=== PATIENT | male | born 1960 | race Caucasian/White ===

== ENCOUNTER 2018-03-03 08:49 | Emergency (ER) | payer OTHER ==
[2018-03-03 09:05] VITALS: BP 127/82
--- NOTE | 2018-03-03 09:50 | RAD ---
INDICATION: Right shoulder pain COMPARISON: None TECHNIQUE: Routine frontal, Y and axial views were obtained. FINDINGS: The bony structures, joint spaces, and soft tissues are normal for age. Incidental note is made of a cardiac pacemaker. IMPRESSION: NEGATIVE EXAMINATION
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
== END 2018-03-03 10:04 | disposition home or self-care (01) ==
LOC: UCCORT 08:49
DX: M25.511 Pain in right shoulder (principal); S49.91XA Unspecified injury of right shoulder and upper arm, initial encounter; X58.XXXA Exposure to other specified factors, initial encounter; Y93.89 Activity, other specified; Y92.9 Unspecified place or not applicable; F17.210 Nicotine dependence, cigarettes, uncomplicated
CPT/HCPCS: 99213; G0463

== ENCOUNTER 2018-05-18 15:11 | Emergency (ER) | payer OTHER ==
--- OUTSIDE RECORDS SUMMARY | 2018-05-18 15:26 | XMS REPORT ---
:1960 External Reference #:[id number] Author Organization [facility] Address [address], [address] [place] [address] Phone [phone] Care Team Providers Name Role Phone Champ Alexander M.D. 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 Primary Care Physician Unavailable Payers Type Date Identification Numbers Payment Provider Subscriber Commercial Policy Number: [id number] [employer] Maycol Moran PayID: [id number] [address] [place] [address] Problems Date Description Provider Status Onset: 02/04/2013 Aortic valve disorder Ladarius Guzman M.D., Active FACC Onset: 02/04/2013 Mitral valve disorder Ladarius Guzman M.D., Active FACC Onset: 02/04/2013 Primary cardiomyopathy Ladarius Guzman M.D., Active FACC Onset: 02/04/2013 Tobacco user Ladarius Guzman M.D., Active FACC Onset: 07/09/2013 Hyperlipidemia Neena Almazan, Active MSN, MANAGER ENGAGEMENT Onset: 07/09/2013 Benign essential hypertension Neena Almazan, Active MSN, MANAGER ENGAGEMENT Onset: 07/23/2013 Left bundle branch block Neena Almazan, Active MSN, MANAGER ENGAGEMENT Onset: 07/23/2013 Coronary arteriosclerosis Neena Almazan, Active MSN, MANAGER ENGAGEMENT Onset: 08/14/2013 Tachycardia Ladarius Guzman M.D., Active FACC Onset: 09/23/2013 Automatic implantable cardiac Maranda ReidD., Active defibrillator in situ FACC Onset: 09/23/2013 Dizziness and giddiness Ladarius Guzman M.D., Active FACC Onset: 02/23/2014 Syncope and collapse Ladarius Guzman M.D., Active FACC Onset: 02/23/2014 Paroxysmal ventricular tachycardia Ladarius Guzman M.D. , Active FACC Onset: 04/07/2014 Postoperative Wound Closure Ladarius Guzman M.D., Active Encounter FACC Onset: 01/15/2017 Lesion of ulnar nerve ADA Ponec Active Onset: 01/31/2017 Arthralgia of the upper arm ADA Ponce Active Onset: 01/08/2018 Conjunctival hemorrhage Basil Chandler MD Active Onset: 01/08/2018 Macula scars of posterior pole Basil Chandler MD Active (post-traumatic), right eye Onset: 01/08/2018 Corneal opacity Basil Chandler MD Active Family History Date Family Member(s) Problem(s) Comments General Heart Disease : (age 45 Years) Father due to [place] : (age 41 Years) Mother due to Unknown Causes First Brother Alive First Brother 45 First Sister Alive First Sister 41 Social History Type Date Description Comments Lives With Roommate Verónica Phelan Patient follows no dietary restrictions 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 ADL's/IADL's Independent with all ADL's Cigarette Use Current Cigarette Smoker 1 Pack Daily Cigarette Use Pack Years - 30 ETOH Use Currently consumes alcohol socially Smoking Heavy tobacco smoker (more than smokes 1 ppd x 30+ years 10 cigarettes/day) Recreational Drug Use Former Drug User Daily Caffeine Consumes on average 1 pot of regular coffee per day Allergies, Adverse Reactions, Alerts Date Description Reaction Status Severity Comments 05/01/2018 NKDA active Green Vegetables active Medications Medication Date Status Form Strength Qnty SIG Indications Ordering Provider Simvastatin 07/09 Active Tablets 20mg 30tab take 1 tablet 272.4 Neena /2012 s by mouth Simon[place] every evening Tha, MSN, MANAGER ENGAGEMENT Meloxicam Active Tablets 15mg 30tab 1 by mouth Unknown /0000 s every day Metoprolol Active Tablets 50mg 30tab 1 by mouth Unknown Succinate ER /0000 ER 24HR s every day Terbinafine HCL Active Tablets 250mg 90tab 2 by mouth Unknown /0000 s twice a day Warfarin Sodium Active Tablets 10mg take one Unknown tablet by mouth as directed Spironolactone Active Tablets 25mg 1 by mouth Unknown /0000 every day Clopidogrel Active Tablets 75mg 1 by mouth Unknown Bisulfate /0000 every day Oxycodone HCL Active Tablets 15mg take 1 tablet Unknown every 4 hours if needed Lovenox 07/23 Hx Solution 80mg/0.8M 12uni 1 425.4 Neena L ts subcutaneous Simonetta every 12 Tha, colby MSN, MANAGER ENGAGEMENT starting three days prior to the procedure (no Coumadin for 5 days prior to the procedure) Clopidogrel 07/09 Hx Tablets 75mg 30tab 1 po qd 786.50 Neena s Louis Almazan, MSN, MANAGER ENGAGEMENT Aldactone 02/04 Hx Tablets 25mg 90tab 1 po qd Ladarius Low /Grazyna Anderson M.D., [facility] 01/15 Hydrocodone/Juan Alberto Hx Tablets 10-325mg 1-2 tabs Unknown taminophen / q4-6h prn Triamcinolone Hx Cream 0.1% prn itching Unknown Acetonide / Coumadin Hx Tablets 10mg 60tab as directed / s by PCP - 01/15 Aspirin Ec Hx Tablets 81mg 1 po qd Unknown Lisinopril Hx Tablets 10mg 90tab 1 po qd Unknown / s Oxycodone HCL Hx Tablets 10mg 1 by mouth Unknown / every 4-6 - hour as 01/15 needed pain /2017 Alprazolam Hx Tablets 0.5mg 1 by mouth Unknown three times a - day as needed 01/15 Vital Signs Date Vital Result Comment 05/01/2018 BP Systolic Sitting Left Arm 124 mmHg BP Diastolic Sitting Left Arm 80 mmHg Body Temperature 98.6 F Heart Rate 78 /min Respiratory Rate 16 /min Height 68 inches 5'8" Weight 161.00 lb BMI (Body Mass Index) 24.5 kg/m2 BSA (Body Surface Area) 1.86 m2 [place] body weight in kilograms 70 O2 % BldC Oximetry 99 % 04/23/2017 BP Systolic Sitting Left Arm 118 mmHg BP Diastolic Sitting Left Arm 70 mmHg Heart Rate 72 /min Respiratory Rate 18 /min Height 68 inches 5'8" Weight 175.00 lb BMI (Body Mass Index) 26.6 kg/m2 BSA (Body Surface Area) 1.93 m2 [place] body weight in kilograms 70 01/15/2017 BP Systolic Sitting Right Arm 138 mmHg BP Diastolic Sitting Right Arm 88 mmHg Heart Rate 77 /min Height 68 inches 5'8" Weight 176.00 lb BMI (Body Mass Index) 26.8 kg/m2 BSA (Body Surface Area) 1.94 m2 [place] body weight in kilograms 70 10/23/2016 BP Systolic Sitting Right Arm 114 mmHg BP Diastolic Sitting Right Arm 80 mmHg Heart Rate 73 /min Respiratory Rate 16 /min Height 70 inches 5'10" Weight 181.00 lb BMI (Body Mass Index) 26.0 kg/m2 BSA (Body Surface Area) 2.00 m2 07/14/2014 BP Systolic Sitting Left Arm 122 mmHg BP Diastolic Sitting Left Arm 76 mmHg Heart Rate 88 /min Respiratory Rate 16 /min Height 70 inches 5'10" 04/07/2014 BP Systolic Sitting Right Arm 124 mmHg BP Diastolic Sitting Right Arm 62 mmHg Heart Rate 84 /min Respiratory Rate 16 /min Height 70 inches 5'10" Weight 164.00 lb BMI (Body Mass Index) 23.5 kg/m2 BSA (Body Surface Area) 1.92 m2 02/23/2014 BP Systolic Sitting Right Arm 142 mmHg BP Diastolic Sitting Right Arm 86 mmHg Heart Rate 82 /min Respiratory Rate 16 /min Height 70 inches 5'10" Weight 169.00 lb BMI (Body Mass Index) 24.2 kg/m2 BSA (Body Surface Area) 1.94 m2 01/13/2014 BP Systolic Sitting Right Arm 144 mmHg BP Diastolic Sitting Right Arm 98 mmHg Heart Rate 84 /min Respiratory Rate 16 /min Height 70 inches 5'10" Weight 182.00 lb BMI (Body Mass Index) 26.1 kg/m2 BSA (Body Surface Area) 2.01 m2 10/15/2013 BP Systolic Sitting Left Arm 108 mmHg BP Diastolic Sitting Left Arm 58 mmHg Heart Rate 62 /min Respiratory Rate 16 /min Height 70 inches 5'10" Weight 184.00 lb BMI (Body Mass Index) 26.4 kg/m2 BSA (Body Surface Area) 2.01 m2 09/23/2013 BP Systolic Sitting Right Arm 104 mmHg BP Diastolic Sitting Right Arm 74 mmHg Heart Rate 76 /min Respiratory Rate 16 /min Height 70 inches 5'10" Weight 187.00 lb BMI (Body Mass Index) 26.8 kg/m2 BSA (Body Surface Area) 2.03 m2 08/14/2013 BP Systolic Sitting Right Arm 120 mmHg BP Diastolic Sitting Right Arm 78 mmHg Heart Rate 76 /min Respiratory Rate 16 /min Height 70 inches 5'10" Weight 190.00 lb BMI (Body Mass Index) 27.3 kg/m2 BSA (Body Surface Area) 2.04 m2 07/23/2013 BP Systolic Sitting Right Arm 92 mmHg BP Diastolic Sitting Right Arm 60 mmHg Heart Rate 68 /min Respiratory Rate 16 /min Height 70 inches 5'10" Weight 189.00 lb BMI (Body Mass Index) 27.1 kg/m2 BSA (Body Surface Area) 2.04 m2 07/09/2013 BP Systolic Sitting Right Arm 120 mmHg BP Diastolic Sitting Right Arm 82 mmHg Heart Rate 86 /min Respiratory Rate 16 /min Height 70 inches 5'10" Weight 189.00 lb BMI (Body Mass Index) 27.1 kg/m2 BSA (Body Surface Area) 2.04 m2 02/04/2013 BP Systolic Sitting Right Arm 130 mmHg BP Diastolic Sitting Right Arm 86 mmHg Heart Rate 90 /min Respiratory Rate 16 /min Height 70 inches 5'10" Weight 178.00 lb BMI (Body Mass Index) 25.5 kg/m2 BSA (Body Surface Area) 1.99 m2 Results Test Date Test Result H/L Range Note MCHC RBC Auto-mCnc 09/22/2016 MCHC RBC Auto-mCnc 34.6 31.7-36.0 MCV RBC Auto 09/22/2016 MCV RBC Auto 100.7 High 80.0-96.0 Monocytes # Bld Auto 09/22/2016 Monocytes # Bld Auto 1.00 High 0.0-0.8 Monocytes/leuk NFr 09/22/2016 Monocytes/leuk NFr 12.1 High 0.0-10.0 Bld Auto Bld Auto Neutrophils # Bld 09/22/2016 Neutrophils # Bld 4.25 1.8-7.0 Auto Auto Neutrophils/leuk NFr 09/22/2016 Neutrophils/leuk NFr 51.3 33.0-73.0 Bld Auto Bld Auto PMV Bld Auto 09/22/2016 PMV Bld Auto 10.8 High 6.6-10.6 Platelet # Bld Auto 09/22/2016 Platelet # Bld Auto 173 150-400 Potassium SerPl-sCnc 09/22/2016 Potassium SerPl-sCnc 3.8 3.5-5.1 Prot SerPl-mCnc 09/22/2016 Prot SerPl-mCnc 8.3 High 6.4-8.2 Prothrombin time 09/22/2016 Prothrombin time 35.7 High 12.0-14.4 RBC # Bld Auto 09/22/2016 RBC # Bld Auto 4.10 Low 4.20-5.80 RDW RBC Auto 09/22/2016 RDW RBC Auto 49.6 36-51 RDW RBC Auto-Rto 09/22/2016 RDW RBC Auto-Rto 13.8 11.6-15.8 Sodium SerPl-sCnc 09/22/2016 Sodium SerPl-sCnc 142 136-145 Troponin I SerPl-mCnc 09/22/2016 Troponin I 0.024 SerPl-mCnc WBC # Bld Auto 09/22/2016 WBC # Bld Auto 8.3 3.4-10.5 Ast SerPl-cCnc 09/22/2016 Ast SerPl-cCnc 100 High 15-37 Activated partial 09/22/2016 Activated partial 46.7 High 23.4-35.0 thromboplastin time thromboplastin time (aPTT) in pl (aPTT) in platelet poor plasma by coagulation assay Albumin SerPl-mCnc 09/22/2016 Albumin SerPl-mCnc 4.4 3.4-5.0 Albumin/Glob SerPl 09/22/2016 Albumin/Glob SerPl 1.1 Anion Gap SerPl-sCnc 09/22/2016 Anion Gap SerPl-sCnc 11 8-16 Alt SerPl-cCnc 09/22/2016 Alt SerPl-cCnc 80 High 12-78 Alp SerPl-cCnc 09/22/2016 Alp SerPl-cCnc 48 45-117 BUN SerPl-mCnc 09/22/2016 BUN SerPl-mCnc 8 7-18 BUN/Creat SerPl 09/22/2016 BUN/Creat SerPl 10.0 Basophils # Bld Auto 09/22/2016 Basophils # Bld Auto 0.05 Low 0.1-0.2 Basophils/leuk NFr 09/22/2016 Basophils/leuk NFr 0.6 0.1-1.0 Bld Auto Bld Auto Bilirub SerPl-mCnc 09/22/2016 Bilirub SerPl-mCnc 0.4 0.2-1.0 Co2 SerPl-sCnc 09/22/2016 Co2 SerPl-sCnc 25 21-32 MCH RBC Qn Auto 09/22/2016 MCH RBC Qn Auto 34.9 High 27.0-33.0 Lymphocytes/leuk NFr 09/22/2016 Lymphocytes/leuk NFr 27.6 17.0-56.0 Bld Auto Bld Auto Lymphocytes # Bld 09/22/2016 Lymphocytes # Bld 2.29 1.8-7.0 Auto Auto Inr 09/22/2016 Inr 3.7 High 0.9-1.1 Hgb Bld-mCnc 09/22/2016 Hgb Bld-mCnc 14.3 12.8-17.0 Hct VFr Bld Auto 09/22/2016 Hct VFr Bld Auto 41.3 38.0-48.0 Glucose [mass/volume] 09/22/2016 Glucose 84 74-106 in serum or plasma [mass/volume] in serum or plasma Globulin Ser 09/22/2016 Globulin Ser 3.9 1.9-4.3 Calc-mCnc Calc-mCnc Eosinophil/leuk NFr 09/22/2016 Eosinophil/leuk NFr 8.4 High 0.0-5.0 Bld Auto Bld Auto Eosinophil # Bld Auto 09/22/2016 Eosinophil # Bld 0.70 High 0.0-0.5 Auto Creat SerPl-mCnc 09/22/2016 Creat SerPl-mCnc 0.8 0.6-1.3 Chloride SerPl-sCnc 09/22/2016 Chloride SerPl-sCnc 106 98-107 Calcium SerPl-mCnc 09/22/2016 Calcium SerPl-mCnc 8.9 8.5-10.1 Protime 03/16/2014 Protime 20.9 seconds High 12.1-14.9 Inr 1.8 High 0.9-1.1 1 CBC W/Automated Diff 09/29/2013 White Blood Count 7.1 K/uL 3.4-10.5 Red Blood Count 4.11 M/uL Low 4.20-5.80 Hemoglobin 14.3 gm/dL 12.8-17.0 Hematocrit 40.8 % 38.0-48.0 Mean Cell Volume 99.3 fl High 80.0-96.0 Mean Corpuscular HGB 34.8 pg High 27.0-33.0 Mean Corpuscular HGB Conc 35.0 g/dL 31.7-36.0 Platelet Count 225 K/uL 150-400 Red Cell Distri Width SD 47.7 fl 36-51 Red Cell Distri Width %CV 13.4 % 11.6-15.8 Mean Platelet Volume 10.1 fL 6.6-10.6 Neut% 55.3 % 33.0-73.0 Lymph % 21.5 % 17.0-56.0 [place] % 12.5 % High 0.0-10.0 Eo% 9.4 % High 0.0-5.0 Bas% 1.3 % High 0.1-1.0 Neut# 3.92 K/uL 1.8-7.0 Lymph # 1.53 K/uL 1.2-4.0 [place] # 0.89 K/uL High 0.0-0.6 Eos # 0.67 K/uL High 0.0-0.5 Baso # 0.09 K/uL Low 0.1-0.2 Basic Metabolic Panel 09/29/2013 Glucose 92 mg/dL 76-115 BUN 9 mg/dL 5-23 Creatinine 0.9 mg/dL 0.5-1.4 Glom Filtration Rate, Estimate >60 mL/min >60 If >60 mL/min >60 2 BUN/Creat 10.0 ratio Sodium 137 mmol/L 136-145 Potassium 4.2 mmol/L 3.5-5.1 Chloride 106 mmol/L 98-107 Carbon Dioxide 26 mEq/L 18-29 Anion Gap 9 mEq/L 8-16 Calcium 9.3 mg/dL 8.5-10.1 1 THERAPEUTIC INR RANGE: 2.0 - 3.0 DVT, Pulmonary embolus, prophylaxis against venous thrombosis or systemic embolization in high risk patients. 2.5 - 3.5 Mechanical heart valves 2 Note: Persistent reduction for 3 months or more in an eGFR <60 mL/min/1.73 m2 defines CKD. Patients with eGFR values >/=60 mL/min/1.73 m2 may also have CKD if evidence of persistent proteinuria is present. The original MDRD equation for estimated GFR is not valid for patients less than 18 years of age. Additional information may be found at www.kdoqi.org. Procedures Date CPT Code Description Status 05/01/2018 72440 Radiology, Ankle Complete Completed 01/08/2018 44658 Eye Exam New Patient Comprehensive Completed 12/28/2017 38857 Stress Test Interpre And Report Only Completed 12/28/2017 06036 Stress Test Physician Super Only Completed 12/28/2017 84489 Myocardial Imaging Tomographic Multiple Study AT Rest Completed Or Stress 04/16/2017 13582 Echocardiogram Complete Completed 10/23/2016 19201 EKG-Tracing And Report Completed 10/10/2016 99107 Cardioversion/Defibrillation Dual Pacemaker Completed 10/10/2016 76584 Cardioversion/Defibrillation Dual Pacemaker Completed 07/14/2014 41816 Cardioversion/Defibrillation Dual Pacemaker Completed 07/14/2014 07629 Cardioversion/Defibrillation Dual Pacemaker Completed 04/07/2014 43087 Cardioversion/Defibrillation Dual Pacemaker Completed 04/07/2014 02734 Cardioversion/Defibrillation Dual Pacemaker Completed 04/07/2014 96583 EKG-Tracing And Report Completed 03/16/2014 15150 Cardioversion/Defibrillation Dual Pacemaker Completed 01/16/2014 42587 Event Monitor Inter/Review Only Completed 09/23/2013 88023 Cardioversion/Defibril. Multiple Lead Pacemaker Completed 09/23/2013 93197 Cardioversion/Defibril. Multiple Lead Pacemaker Completed 09/23/2013 49231 EKG-Tracing And Report Completed 07/09/2013 55297 Event Monitor Inter/Review Only Completed 07/09/2013 83307 EKG-Tracing And Report Completed 02/20/2013 33469 Echocardiogram Complete Completed 02/04/2013 05407 EKG-Tracing And Report Completed 01/28/2013 89130 Stress Test Interpre And Report Only Completed 01/28/2013 78353 Stress Test Physician Super Only Completed 01/28/2013 14128 Stress Test Physician Super Only Completed 01/28/2013 22278 Myocardial Imaging Tomographic Multiple Study AT Rest Completed Or Stress 07/08/2010 23306 Echocardiogram Complete Completed Encounters Type Date Location Provider CPT E/M Dx Office Visit 04/23/2017 8:00a Cardiology Office Ladarius Guzman, 76745 I35.0 M.D., FACC I34.0 I47.2 I44.7 Z95.810 I42.9 Office Visit 01/31/2017 3:30p Orthopaedic Office ADA Ponce 12620 G56.22 M25.522 Office Visit 01/15/2017 11:00a Orthopaedic Office ADA Ponce 29585 M25.522 G56.22 Office Visit 10/23/2016 3:20p Cardiology Office Neena Almazan, 95587 I42.9 MSN, MANAGER ENGAGEMENT I35.0 I34.0 I47.2 Z95.810 Office Visit 07/14/2014 11:40a Cardiology Office Ladarius Guzman, 04388 V45.02 M.D., FACC 780.2 424.1 424.0 Office Visit 04/17/2014 1:45p Cardiology Office Neena Almazan, 63878 V58.41 MSN, MANAGER ENGAGEMENT Office Visit 04/07/2014 10:10a Cardiology Office Ladarius Guzman, 68223 V45.02 M.D., FACC V58.41 780.2 424.1 424.0 Office Visit 03/23/2014 9:30a Cardiology Office Neena Almazan, 91716 V58.41 MSN, MANAGER ENGAGEMENT Office Visit 03/09/2014 1:30p Cardiology Office Neena Almazan, 25564 V58.41 MSN, MANAGER ENGAGEMENT Office Visit 02/23/2014 2:00p Cardiology Office Ladarius Guzman, 73711 780.2 M.D., FACC 427.1 426.3 425.4 Office Visit 01/13/2014 9:00a Cardiology Office Neena Almazan, 90902 780.2 MSN, MANAGER ENGAGEMENT 427.1 425.4 426.3 424.1 424.0 414.01 272.4 Office Visit 10/27/2013 3:00p Cardiology Office JULIET Masters 69783 V58.41 Office Visit 10/15/2013 2:20p Cardiology Office Ladarius Guzman, 34464 425.4 M.D., FACC 426.3 V45.02 785.0 780.4 424.1 Office Visit 09/23/2013 10:10a Cardiology Office Ladarius ClaireNataliya Guzman, 55976 425.4 M.D., FACC V45.02 426.3 785.0 780.4 Office Visit 09/09/2013 1:20p Cardiology Office Neena Diggswinter Almazan, 95387 V58.41 MSN, MANAGER ENGAGEMENT Office Visit 08/14/2013 1:30p Cardiology Office Ladarius ClaireNataliya Guzman, 42541 785.0 M.D., FACC 425.4 426.3 Office Visit 07/23/2013 2:50p Cardiology Office Neena Diggswinter Almazan, 17970 780.2 MSN, MANAGER ENGAGEMENT 425.4 414.01 424.0 424.1 272.4 401.1 426.3 305.1 Office Visit 07/09/2013 9:40a Cardiology Office Neena Diggswinter Almazan, 80698 786.50 MSN, MANAGER ENGAGEMENT 780.2 425.4 424.0 424.1 305.1 272.4 401.1 426.3 Office Visit 02/04/2013 2:00p Cardiology Office Ladariusmarley Guzman, 39084 424.1 M.D., FACC 424.0 425.4 305.1 Plan of Care 05/01/2018 - Kahlil Roberts, MDM19.172 Post-traumatic osteoarthritis, left ankle and footFollow up:Patient will follow-up if his symptoms change as needed.
--- OUTSIDE RECORDS SUMMARY | 2018-05-18 15:27 | XMS REPORT ---
:1960 External Reference #:[id number] Author Organization [facility] 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 [employer] Jennifer Browne PayID: [id number] [address] [place] [address] Commercial Effective: 2012 Policy Number: Alicia Alea [facility] Jennifer Browne [id number] Expires: 2014 PayID: [id number] [facility] [address] [place] [address] Problems Date Description Provider Status Onset: 07/02/2012 Heart valve replacement Champ Alexander M.D. Active Note: S/P AVR AND MVR Onset: 07/02/2012 Acquired coagulation factor deficiency Champ Alexander M.D. Active Onset: 09/05/2012 Psoriasis Champ Alexander M.D. Active Onset: 09/05/2012 Mixed hyperlipidemia Champ Alexander M.D. Active Onset: 09/05/2012 Tobacco user Champ Alexander M.D. Active Onset: 09/05/2012 Arthralgia of the ankle and/or foot Champ Alexander M.D. Active Onset: 09/05/2012 Osteoarthritis Champ Alexander M.D. Active Onset: 02/25/2013 Primary cardiomyopathy Champ Alexander M.D. Active Onset: 02/25/2013 Coronary arteriosclerosis Champ Alexander M.D. Active Onset: 07/17/2013 Visual disturbance Champ Alexander M.D. 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 Active Onset: 08/04/2013 Hearing loss Champ Alexander M.D. Active Onset: 08/04/2013 Disorder of thyroid gland Champ Alexander M.D. Active Onset: 09/02/2013 Hypothyroidism Champ Alexander M.D. Active Onset: 09/02/2013 Automatic implantable cardiac Champ Alexander M.D. Active defibrillator in situ Onset: 06/21/2015 Bundle branch block Champ Aleaxnder M.D. Active Onset: 09/17/2015 Cardiomyopathy, unspecified Champ Alexander M.D. Active Onset: 09/17/2015 Other specified hearing lossBenjamin Ahmad M., M.D. Active bilateral Family History Date Family Member(s) Problem(s) Comments Children None Siblings 5 Social History Type Date Description Comments Marital Status Legal Status: ETOH Use Denies alcohol use Smoking Smoking Patient is a current smoker, smokes every day Daily Caffeine Consumes on average 2 cups of regular coffee per day Allergies, Adverse Reactions, Alerts Date Description Reaction Status Severity Comments 07/02/2012 NKDA active Medications Medication Date Status Form Strength Qnty SIG Indications Ordering Provider Alprazolam Active Tablets 0.5mg 15tabs 1/2-1 tab G47.00 Champ Alexander 6 by mouth Paolo Low every night as needed F41.9 Oxycodone HCL 09/17/2015 Active Tablets 15mg 45tabs 1 tab by M25.572 Benjamin, Ahmad mouth every 4 M., M.D. hours as needed M15.9 Simvastatin 06/01/2015 Active Tablets 20mg 90tabs 1 by mouth I25.10 Benjamin, Ahmad every night MPaolo An E78.2 Plavix 06/01/2015 Active Tablets 75mg 90tabs 1 by mouth I25.10 Benjamin, Ahmad every day M. MNataliyaD. Spironolactone 02/25/2013 Active Tablets 25mg 90tabs 1 by mouth I25.10 Benjamin, Ahmad every day M. MBaltazar I42.9 Meloxicam 11/11/2012 Active Tablets 15mg 90tabs take 1 tablet M25.572 Benjamin, Ahmad once daily M., M.D. M15.9 Coumadin 07/02/2012 Active Tablets 10mg 90tabs 1 at Z95.2 Benjamin, bedtime Ahmad Tika Low. Metoprolol 07/02/2012 Active Tablets ER 50mg 90tabs 1 every Z95.2 Benjamin , Succinate ER 24HR day Ahmad MNataliya MNataliyaD. Terbinafine 05/01/2016 - Hx Tablets 250mg 180tabs 1 tab by Benjamin HCL 11/08/2016 mouth Ahmad twice a M., M.D. day Terbinafine 09/17/2015 - Hx Tablets 250mg 60tabs 1 tab by B35.1 Benjamin HCL 03/08/2016 mouth Ahmad twice a M., M.D. day Bacitracin 06/29/2015 - Hx Ointment 500Unit apply to 214.8 Benjamin, 07/07/2015 /GM affected Ahmad area twice M., M.D. a day as needed till healed Terbinafine 06/01/2015 - Hx Tablets 250mg 30tabs 1 tab by 110.1 Benjamin HCL 09/07/2015 mouth Ahmad every day M., M.D. Hydrocodone-Ac 03/06/2014 - Hx Tablets 10-325m 180tabs tab 2 by M25.572 Benjamin etaminophen 09/17/2015 g mouth four Ahmad times a M., M.D. day as needed M15.9 Loratadine 12/11/2013 - Hx Tablets 10mg 30tabs 1 tab po 477.9 Benjamin, 2015 qam Champ Low M.D. Dicloxacillin 11/17/2013 - Hx Capsules 500mg 40caps 1 Capsule 883.0 Benjamin, Sodium 12/01/2013 PO qid X10 Champ Low, Days M.DNataliya Sulfamethoxazole/ 10/13/2013 - Hx Tablets 800-160m 20tabs 1 po bid 682.8 Benjamin, Trimethoprim DS 10/22/2013 g Champ Low M.D. Dicloxacillin 10/02/2013 - Hx Capsules 500mg 40caps 1 Capsule V45.02 Benjamin, Sodium 10/12/2013 PO qid X10 Champ Low, Days M.DNataliya Hydrocodone/Aceta 11/14/2012 - Hx Tablets 10-325mg 180tabs tab 2 po 719.47 Benjamin, minophen 03/06/2014 qid prn Champ Low M.D. 715.90 Hydrocodone/Acetaminophen 10/15/2012 - Hx Tablets 5-500mg 90tabs 1-2 by 719.47 Benjamin, 11/14/2012 mouth Ahmad every 4 M., hours M.D. as needed 715.90 Triamcinolone 09/05/2012 - Hx Ointment 0.1% 453.600gm use as 696.8 Benjamin, Acetonide 05/11/2015 directed Champ Low M.D. Lisinopril 07/02/2012 - Hx Tablets 10mg 90tabs 1 by mouth Benjamin, 05/17/2015 every Ahmad MNataliya, morning M.D. Aspir-81 07/02/2012 - Hx Tablets DR 81mg 1 by mouth V43.3 Benjamin, 2015 every Ahmacharli M., morning M.D. Mobic 07/02/2012 - Hx Tablets 15mg 30tabs 1 po qd 719.47 Benjamin, 11/11/2012 Champ Low M.D. 715.90 Vital Signs Date Vital Result Comment 05/01/2018 BP Systolic 108 mmHg BP Diastolic 69 mmHg Height 70 inches 5'10" Weight 160.00 lb BMI (Body Mass Index) 23.0 kg/m2 Heart Rate 80 /min Respiratory Rate 14 /min 03/20/2018 BP Systolic 128 mmHg BP Diastolic 86 mmHg Height 70 inches 5'10" Weight 162.00 lb BMI (Body Mass Index) 23.2 kg/m2 Heart Rate 143 /min Respiratory Rate 16 /min 02/27/2018 BP Systolic 158 mmHg BP Diastolic 84 mmHg Height 70 inches 5'10" Weight 165.00 lb BMI (Body Mass Index) 23.7 kg/m2 Heart Rate 85 /min Respiratory Rate 18 /min 02/13/2018 BP Systolic 124 mmHg BP Diastolic 74 mmHg Height 70 inches 5'10" Weight 165.00 lb BMI (Body Mass Index) 23.7 kg/m2 Heart Rate 60 /min Respiratory Rate 18 /min 12/05/2017 BP Systolic 130 mmHg BP Diastolic 74 mmHg Height 70 inches 5'10" Weight 166.00 lb BMI (Body Mass Index) 23.8 kg/m2 Heart Rate 68 /min Respiratory Rate 18 /min 10/17/2017 BP Systolic 126 mmHg BP Diastolic 62 mmHg Height 70 inches 5'10" Weight 179.00 lb BMI (Body Mass Index) 25.7 kg/m2 Heart Rate 88 /min Respiratory Rate 18 /min 10/02/2017 BP Systolic 126 mmHg BP Diastolic 78 mmHg Height 70 inches 5'10" Weight 170.00 lb BMI (Body Mass Index) 24.4 kg/m2 Heart Rate 91 /min Respiratory Rate 18 /min 08/21/2017 BP Systolic 130 mmHg BP Diastolic 82 mmHg Height 70 inches 5'10" Weight 172.00 lb BMI (Body Mass Index) 24.7 kg/m2 Heart Rate 62 /min Respiratory Rate 16 /min 07/13/2017 BP Systolic 110 mmHg BP Diastolic 78 mmHg Height 70 inches 5'10" Weight 175.00 lb BMI (Body Mass Index) 25.1 kg/m2 Heart Rate 62 /min Respiratory Rate 16 /min 04/06/2017 BP Systolic 126 mmHg BP Diastolic 62 mmHg Height 70 inches 5'10" Weight 176.00 lb BMI (Body Mass Index) 25.3 kg/m2 Heart Rate 63 /min Respiratory Rate 16 /min 02/19/2017 BP Systolic 122 mmHg BP Diastolic 62 mmHg Height 70 inches 5'10" Weight 179.00 lb BMI (Body Mass Index) 25.7 kg/m2 Heart Rate 57 /min Respiratory Rate 16 /min 01/18/2017 BP Systolic 128 mmHg BP Diastolic 84 mmHg Height 70 inches 5'10" Weight 180.00 lb BMI (Body Mass Index) 25.8 kg/m2 Heart Rate 105 /min Respiratory Rate 18 /min 12/08/2016 BP Systolic 124 mmHg BP Diastolic 78 mmHg Height 70 inches 5'10" Weight 178.00 lb BMI (Body Mass Index) 25.5 kg/m2 Heart Rate 80 /min Respiratory Rate 18 /min 11/23/2016 BP Systolic 126 mmHg BP Diastolic 82 mmHg Height 70 inches 5'10" Weight 178.00 lb BMI (Body Mass Index) 25.5 kg/m2 Heart Rate 78 /min Respiratory Rate 16 /min 09/12/2016 BP Systolic 122 mmHg BP Diastolic 70 mmHg Height 70 inches 5'10" Weight 178.00 lb BMI (Body Mass Index) 25.5 kg/m2 Heart Rate 68 /min Respiratory Rate 20 /min 06/20/2016 BP Systolic 130 mmHg BP Diastolic 68 mmHg Height 70 inches 5'10" Weight 174.00 lb BMI (Body Mass Index) 25.0 kg/m2 Heart Rate 71 /min Respiratory Rate 20 /min 05/01/2016 BP Systolic 128 mmHg BP Diastolic 72 mmHg Height 70 inches 5'10" Weight 170.00 lb BMI (Body Mass Index) 24.4 kg/m2 Heart Rate 80 /min Respiratory Rate 22 /min 03/15/2016 BP Systolic 136 mmHg BP Diastolic 88 mmHg Height 70 inches 5'10" Weight 175.00 lb BMI (Body Mass Index) 25.1 kg/m2 Heart Rate 78 /min Respiratory Rate 18 /min 01/17/2016 BP Systolic 126 mmHg BP Diastolic 86 mmHg Height 70 inches 5'10" Weight 192.00 lb BMI (Body Mass Index) 27.5 kg/m2 Heart Rate 74 /min Respiratory Rate 18 /min 11/25/2015 BP Systolic 124 mmHg BP Diastolic 80 mmHg Height 70 inches 5'10" Weight 192.00 lb BMI (Body Mass Index) 27.5 kg/m2 Heart Rate 85 /min Respiratory Rate 18 /min 09/17/2015 BP Systolic 105 mmHg BP Diastolic 73 mmHg Height 70 inches 5'10" Weight 188.00 lb BMI (Body Mass Index) 27.0 kg/m2 Heart Rate 81 /min Respiratory Rate 18 /min 06/29/2015 BP Systolic 122 mmHg BP Diastolic 78 mmHg Height 70 inches 5'10" Weight 197.00 lb BMI (Body Mass Index) 28.3 kg/m2 Heart Rate 81 /min Respiratory Rate 18 /min 06/21/2015 BP Systolic 124 mmHg BP Diastolic 77 mmHg Height 70 inches 5'10" Weight 196.00 lb BMI (Body Mass Index) 28.1 kg/m2 Heart Rate 65 /min Body Temperature 97.6 F Respiratory Rate 15 /min 06/01/2015 BP Systolic 110 mmHg BP Diastolic 70 mmHg Height 70 inches 5'10" Weight 196.00 lb BMI (Body Mass Index) 28.1 kg/m2 Heart Rate 69 /min Respiratory Rate 16 /min 04/07/2014 BP Systolic 123 mmHg BP Diastolic 76 mmHg Height 70 inches 5'10" Weight 164.00 lb BMI (Body Mass Index) 23.5 kg/m2 Heart Rate 104 /min Respiratory Rate 18 /min 03/06/2014 BP Systolic 121 mmHg BP Diastolic 72 mmHg Height 70 inches 5'10" Weight 166.00 lb BMI (Body Mass Index) 23.8 kg/m2 Heart Rate 79 /min Respiratory Rate 18 /min 01/30/2014 BP Systolic 143 mmHg BP Diastolic 82 mmHg Height 70 inches 5'10" Weight 178.00 lb BMI (Body Mass Index) 25.5 kg/m2 Heart Rate 102 /min Respiratory Rate 20 /min 12/19/2013 BP Systolic 125 mmHg BP Diastolic 78 mmHg Height 70 inches 5'10" Weight 179.00 lb BMI (Body Mass Index) 25.7 kg/m2 Heart Rate 87 /min Respiratory Rate 20 /min 12/11/2013 BP Systolic 115 mmHg BP Diastolic 73 mmHg Height 70 inches 5'10" Weight 177.00 lb BMI (Body Mass Index) 25.4 kg/m2 Heart Rate 76 /min Respiratory Rate 20 /min 11/17/2013 BP Systolic 109 mmHg BP Diastolic 72 mmHg Height 70 inches 5'10" Weight 179.00 lb BMI (Body Mass Index) 25.7 kg/m2 Heart Rate 79 /min Respiratory Rate 20 /min 11/03/2013 BP Systolic 125 mmHg BP Diastolic 75 mmHg Height 70 inches 5'10" Weight 181.00 lb BMI (Body Mass Index) 26.0 kg/m2 Heart Rate 73 /min 10/22/2013 BP Systolic 118 mmHg BP Diastolic 75 mmHg Height 70 inches 5'10" Weight 179.00 lb BMI (Body Mass Index) 25.7 kg/m2 Heart Rate 79 /min Respiratory Rate 22 /min 10/13/2013 BP Systolic 124 mmHg BP Diastolic 80 mmHg Height 70 inches 5'10" Weight 184.00 lb BMI (Body Mass Index) 26.4 kg/m2 Heart Rate 59 /min Respiratory Rate 20 /min 10/02/2013 BP Systolic 112 mmHg BP Diastolic 75 mmHg Height 70 inches 5'10" Weight 178.00 lb BMI (Body Mass Index) 25.5 kg/m2 Heart Rate 78 /min Respiratory Rate 20 /min 09/02/2013 BP Systolic 117 mmHg BP Diastolic 77 mmHg Height 70 inches 5'10" Weight 191.00 lb BMI (Body Mass Index) 27.4 kg/m2 Heart Rate 84 /min Respiratory Rate 18 /min 08/04/2013 BP Systolic 131 mmHg BP Diastolic 86 mmHg Height 70 inches 5'10" Weight 185.00 lb BMI (Body Mass Index) 26.5 kg/m2 Heart Rate 111 /min Respiratory Rate 20 /min 07/17/2013 BP Systolic 108 mmHg BP Diastolic 78 mmHg Height 70 inches 5'10" Weight 189.00 lb BMI (Body Mass Index) 27.1 kg/m2 Heart Rate 75 /min Body Temperature 97.0 F Respiratory Rate 22 /min 07/16/2013 BP Systolic 120 mmHg BP Diastolic 81 mmHg Height 70 inches 5'10" Weight 186.00 lb BMI (Body Mass Index) 26.7 kg/m2 Heart Rate 77 /min Respiratory Rate 20 /min 07/07/2013 BP Systolic 131 mmHg BP Diastolic 91 mmHg Height 70 inches 5'10" Weight 186.00 lb BMI (Body Mass Index) 26.7 kg/m2 Heart Rate 102 /min Respiratory Rate 18 /min 06/05/2013 BP Systolic 122 mmHg BP Diastolic 78 mmHg Height 70 inches 5'10" Weight 191.00 lb BMI (Body Mass Index) 27.4 kg/m2 Heart Rate 105 /min Respiratory Rate 18 /min 03/11/2013 BP Systolic 116 mmHg BP Diastolic 70 mmHg Height 70 inches 5'10" Weight 173.00 lb BMI (Body Mass Index) 24.8 kg/m2 Heart Rate 66 /min Respiratory Rate 20 /min 02/27/2013 BP Systolic 122 mmHg BP Diastolic 82 mmHg Height 70 inches 5'10" Weight 173.00 lb BMI (Body Mass Index) 24.8 kg/m2 Heart Rate 96 /min Respiratory Rate 20 /min 02/25/2013 BP Systolic 112 mmHg BP Diastolic 74 mmHg Height 70 inches 5'10" Weight 174.00 lb BMI (Body Mass Index) 25.0 kg/m2 Heart Rate 95 /min Respiratory Rate 20 /min 02/06/2013 BP Systolic 104 mmHg BP Diastolic 72 mmHg Height 70 inches 5'10" Weight 179.00 lb BMI (Body Mass Index) 25.7 kg/m2 Heart Rate 87 /min Respiratory Rate 22 /min 01/20/2013 BP Systolic 120 mmHg BP Diastolic 82 mmHg Height 70 inches 5'10" Weight 181.00 lb BMI (Body Mass Index) 26.0 kg/m2 Heart Rate 90 /min Respiratory Rate 14 /min 12/19/2012 BP Systolic 114 mmHg BP Diastolic 76 mmHg Height 70 inches 5'10" Weight 185.00 lb BMI (Body Mass Index) 26.5 kg/m2 Heart Rate 111 /min Respiratory Rate 16 /min 11/14/2012 BP Systolic 126 mmHg BP Diastolic 84 mmHg Height 70 inches 5'10" Weight 185.00 lb BMI (Body Mass Index) 26.5 kg/m2 Heart Rate 81 /min Respiratory Rate 16 /min 10/15/2012 BP Systolic 110 mmHg BP Diastolic 76 mmHg Height 70 inches 5'10" Weight 190.00 lb BMI (Body Mass Index) 27.3 kg/m2 Heart Rate 88 /min Last Menstrual Period 0 Respiratory Rate 20 /min 09/05/2012 BP Systolic 128 mmHg BP Diastolic 86 mmHg Height 70 inches 5'10" Weight 194.00 lb BMI (Body Mass Index) 27.8 kg/m2 Heart Rate 41 /min Respiratory Rate 16 /min 07/02/2012 BP Systolic 145 mmHg BP Diastolic 67 mmHg Height 70 inches 5'10" Weight 204.00 lb BMI (Body Mass Index) 29.3 kg/m2 Heart Rate 80 /min Last Menstrual Period 0 Respiratory Rate 16 /min Results Test Date Test Result H/L Range Note Inr/Protime 02/27/2018 Inr 1.74 High 0.77-1.02 Inr/Protime 02/13/2018 Inr 4.05 High 0.77-1.02 Inr/Protime 01/30/2018 Inr 5.98 High 0.77-1.02 1 Laboratory test finding 11/28/2017 Troponin-I 0.035 ng/mL 2, 3 CBS W/Automated Diff 11/28/2017 White Blood Count 10.0 K/uL 3.4-10.5 2 Red Blood Count 3.91 M/uL Low 4.20-5.80 2 Hemoglobin 14.1 gm/dL 12.8-17.0 2 Hematocrit 38.6 % 38.0-48.0 2 Mean Cell Volume 98.7 fl High 80.0-96.0 2 Mean Corpuscular HGB 36.1 pg High 27.0-33.0 2 Mean Corpuscular HGB Conc 36.5 g/dL High 31.7-36.0 2 Platelet Count 152 K/uL Low 155-360 2 Red Cell Distri Width SD 52.3 fl High 36-51 2 Red Cell Distri Width %CV 14.6 % 11.6-15.8 2 Mean Platelet Volume 11.1 fL High 6.6-10.6 2 Neut% 58.1 % 33.0-73.0 2 Lymph % 22.6 % 20.0-42.0 2 [place] % 14.9 % High 0.0-10.0 2 Eo% 3.6 % 0.0-6.6 2 Bas% 0.8 % 0.0-1.1 2 Neut# 5.79 K/uL 1.8-7.0 2 Lymph # 2.26 K/uL 1.0-4.0 2 [place] # 1.49 K/uL High 0.0-0.8 2 Eos # 0.36 K/uL 0.0-0.5 2 Baso # 0.08 K/uL 0.0-0.1 2 Comprehensive Metabolic Panel 11/28/2017 Glucose 98 mg/dL 74-106 2 BUN 7 mg/dL 7-18 2 Creatinine 0.7 mg/dL 0.6-1.3 2 Glom Filtration Rate, Estimate >60 mL/min >60 2 If >60 mL/min >60 2, 4 BUN/Creat 10.0 ratio 2 Sodium 139 mmol/L 136-145 2 Potassium 3.6 mmol/L 3.5-5.1 2 Chloride 106 mmol/L 98-107 2 Carbon Dioxide 23 mmol/L 21-32 2 Anion Gap 10 mEq/L 8-16 2 Calcium 8.7 mg/dL 8.5-10.1 2 Total Protein 7.9 g/dL 6.4-8.2 2 Albumin 4.1 g/dL 3.4-5.0 2 Globulin 3.8 g/dL 1.9-4.3 2 Alb/Glob 1.1 ratio 2 Bilirubin,Total 0.7 mg/dL 0.2-1.0 2 Sgot/Ast 47 U/L High 15-37 2 SGPT/Alt 33 U/L 12-78 2 Alkaline Phosphatase 34 U/L Low 45-117 2 Laboratory test finding 11/28/2017 CK 284 U/L 39-308 2 Troponin-I 0.034 ng/mL 2, 5 Inr/Protime 10/17/2017 Inr 1.95 High 0.77-1.02 Inr/Protime 07/13/2017 Inr 1.16 High 0.89-1.11 Laboratory test finding 07/13/2017 TSH (Thyroid Stim 0.92 mcIU/mL 0.34- 5.60 6 Horm) Free T4 (Free Thyroxine) 0.64 ng/dL 0.61-1.12 7 Vitamin D Total 25(Oh) 33.1 ng/mL 20-50 8 Lipid Profile (Trig/Chol/HDL) 07/13/2017 Triglycerides 50 mg/dL 9 Cholesterol 180 mg/dL 10 HDL Cholesterol 88.7 mg/dL 11 LDL Cholesterol 81 mg/dL 12 Comp Metabolic Panel 07/13/2017 Sodium 135 mmol/L 133-145 Potassium 4.1 mmol/L 3.5-5.0 Chloride 101 mmol/L 101-111 Co2 Carbon Dioxide 28 mmol/L 22-32 Anion Gap 6 mmol/L 2-11 Glucose 88 mg/dL 70-100 Blood Urea Nitrogen 9 mg/dL 6-24 Creatinine 0.82 mg/dL 0.67-1.17 BUN/Creatinine Ratio 11.0 8-20 Calcium 9.7 mg/dL 8.6-10.3 Total Protein 7.2 g/dL 6.4-8.9 Albumin 4.5 g/dL 3.2-5.2 Globulin 2.7 g/dL 2-4 Albumin/Globulin Ratio 1.7 1-3 Total Bilirubin 1.20 mg/dL High 0.2-1.0 Alkaline Phosphatase 33 U/L Low 34-104 Alt 33 U/L 7-52 Ast 50 U/L High 13-39 Egfr Non- 97.2 >60 Egfr 125.0 >60 13 CBC Auto Diff 07/13/2017 White Blood Count 6.8 10^3/uL 3.5-10.8 Red Blood Count 4.43 10^6/uL 4.0-5.4 Hemoglobin 15.1 g/dL 14.0-18.0 Hematocrit 44 % 42-52 Mean Corpuscular Volume 99 fL High 80-94 Mean Corpuscular Hemoglobin 34 pg High 27-31 Mean Corpuscular HGB Conc 34 g/dL 31-36 Red Cell Distribution Width 14 % 10.5-15 Platelet Count 140 10^3/uL Low 150-450 Mean Platelet Volume 10 um3 7.4-10.4 Abs Neutrophils 4.1 10^3/uL 1.5-7.7 Abs Lymphocytes 1.2 10^3/uL 1.0-4.8 Abs Monocytes 1.0 10^3/uL High 0-0.8 Abs Eosinophils 0.4 10^3/uL 0-0.6 Abs Basophils 0.1 10^3/uL 0-0.2 Abs Nucleated RBC 0.01 10^3/uL Granulocyte % 60.6 % 38-83 Lymphocyte % 17.6 % Low 25-47 Monocyte % 14.8 % High 1-9 Eosinophil % 5.6 % 0-6 Basophil % 1.4 % 0-2 Nucleated Red Blood Cells % 0.1 Inr/Protime 04/06/2017 Inr 1.58 High 0.89-1.11 Inr/Protime 02/19/2017 Inr 3.37 High 0.89-1.11 Inr/Protime 01/18/2017 Inr 2.76 High 0.89-1.11 14 Laboratory test finding 11/23/2016 Free T4 (Free 0.88 ng/dL 0.61-1.12 15 Thyroxine) Vitamin D Total 25(Oh) 23.8 ng/mL Low 30-50 16 Inr/Protime 11/23/2016 Inr 3.21 High 0.89-1.11 Laboratory test 11/23/2016 TSH (Thyroid Stim 1.79 mcIU/mL 0.34-5.60 17 finding Horm) Lipid Profile 11/23/2016 Triglycerides 103 mg/dL 18 (Trig/Chol/HDL) Cholesterol 217 mg/dL 19 HDL Cholesterol 73.2 mg/dL 20 LDL Cholesterol 123 mg/dL 21 Comp Metabolic Panel 11/23/2016 Sodium 137 mmol/L 133-145 Potassium 4.3 mmol/L 3.5-5.0 Chloride 104 mmol/L 101-111 Co2 Carbon Dioxide 27 mmol/L 22-32 Anion Gap 6 mmol/L 2-11 Glucose 80 mg/dL 70-100 Blood Urea Nitrogen 11 mg/dL 6-24 Creatinine 0.90 mg/dL 0.67-1.17 BUN/Creatinine Ratio 12.2 8-20 Calcium 9.9 mg/dL 8.6-10.3 Total Protein 7.9 g/dL 6.4-8.9 Albumin 4.7 g/dL 3.2-5.2 Globulin 3.2 g/dL 2-4 Albumin/Globulin Ratio 1.5 1-3 Total Bilirubin 0.40 mg/dL 0.2-1.0 Alkaline Phosphatase 36 U/L 34-104 Alt 28 U/L 7-52 Ast 41 U/L High 13-39 Egfr Non- 87.6 >60 Egfr 112.7 >60 22 CBC Auto Diff 11/23/2016 White Blood Count 7.6 10^3/uL 3.5-10.8 Red Blood Count 4.80 10^6/uL 4.0-5.4 Hemoglobin 16.0 g/dL 14.0-18.0 Hematocrit 48 % 42-52 Mean Corpuscular Volume 99 fL High 80-94 Mean Corpuscular Hemoglobin 33 pg High 27-31 Mean Corpuscular HGB Conc 34 g/dL 31-36 Red Cell Distribution Width 15 % 10.5-15 Platelet Count 203 10^3/uL 150-450 Mean Platelet Volume 9 um3 7.4-10.4 Abs Neutrophils 4.2 10^3/uL 1.5-7.7 Abs Lymphocytes 1.7 10^3/uL 1.0-4.8 Abs Monocytes 1.1 10^3/uL High 0-0.8 Abs Eosinophils 0.5 10^3/uL 0-0.6 Abs Basophils 0.1 10^3/uL 0-0.2 Abs Nucleated RBC 0 10^3/uL Granulocyte % 55.2 % 38-83 Lymphocyte % 22.8 % Low 25-47 Monocyte % 14.2 % High 1-9 Eosinophil % 5.9 % 0-6 Basophil % 1.9 % 0-2 Nucleated Red Blood Cells % 0 Antibody Identification 09/22/2016 Antibody Identification E 23 Antibody Identification LC 23 Antigen Identification 09/22/2016 Antigen Identification POSITIVE 23 Antigen Identification NEGATIVE 23 Antigen Identification NEGATIVE 23 Antigen Identification POSITIVE 23 Type And Screen 09/22/2016 Patient Blood Type A POS 23 Antibody Screen POSITIVE Negative 23 Comprehensive Metabolic Panel 09/22/2016 Glucose 84 mg/dL 74-106 23 BUN 8 mg/dL 7-18 23 Creatinine 0.8 mg/dL 0.6-1.3 23 Glom Filtration Rate, Estimate >60 mL/min >60 23 If >60 mL/min >60 23, 24 BUN/Creat 10.0 ratio 23 Sodium 142 mmol/L 136-145 23 Potassium 3.8 mmol/L 3.5-5.1 23 Chloride 106 mmol/L 98-107 23 Carbon Dioxide 25 mmol/L 21-32 23 Anion Gap 11 mEq/L 8-16 23 Calcium 8.9 mg/dL 8.5-10.1 23 Total Protein 8.3 g/dL High 6.4-8.2 23 Albumin 4.4 g/dL 3.4-5.0 23 Globulin 3.9 g/dL 1.9-4.3 23 Alb/Glob 1.1 ratio 23 Bilirubin,Total 0.4 mg/dL 0.2-1.0 23 Sgot/Ast 100 U/L High 15-37 23 SGPT/Alt 80 U/L High 12-78 23 Alkaline Phosphatase 48 U/L 45-117 23 Inr/Protime 09/12/2016 Inr 2.75 High 0.89-1.11 CBC Auto Diff 06/20/2016 White Blood Count 7.6 10^3/uL 3.5-10.8 Red Blood Count 4.22 10^6/uL 4.0-5.4 Hemoglobin 14.3 g/dL 14.0-18.0 Hematocrit 43 % 42-52 Mean Corpuscular Volume 102 fL High 80-94 Mean Corpuscular Hemoglobin 34 pg High 27-31 Mean Corpuscular HGB Conc 33 g/dL 31-36 Red Cell Distribution Width 15 % 10.5-15 Platelet Count 171 10^3/uL 150-450 Mean Platelet Volume 9 um3 7.4-10.4 Abs Neutrophils 4.2 10^3/uL 1.5-7.7 Abs Lymphocytes 1.5 10^3/uL 1.0-4.8 Abs Monocytes 1.0 10^3/uL High 0-0.8 Abs Eosinophils 0.7 10^3/uL High 0-0.6 Abs Basophils 0.1 10^3/uL 0-0.2 Abs Nucleated RBC 0 10^3/uL Granulocyte % 55.2 % 38-83 Lymphocyte % 20.2 % Low 25-47 Monocyte % 13.7 % High 1-9 Eosinophil % 9.6 % High 0-6 Basophil % 1.3 % 0-2 Nucleated Red Blood Cells % 0 Comp Metabolic Panel 06/20/2016 Sodium 138 mmol/L 133-145 Potassium 4.1 mmol/L 3.5-5.0 Chloride 104 mmol/L 101-111 Co2 Carbon Dioxide 28 mmol/L 22-32 Anion Gap 6 mmol/L 2-11 Glucose 65 mg/dL Low 70-100 Blood Urea Nitrogen 10 mg/dL 6-24 Creatinine 0.85 mg/dL 0.67-1.17 BUN/Creatinine Ratio 11.8 8-20 Calcium 9.4 mg/dL 8.6-10.3 Total Protein 7.5 g/dL 6.4-8.9 Albumin 4.7 g/dL 3.2-5.2 Globulin 2.8 g/dL 2-4 Albumin/Globulin Ratio 1.7 1-3 Total Bilirubin 0.60 mg/dL 0.2-1.0 Alkaline Phosphatase 38 U/L 34-104 Alt 28 U/L 7-52 Ast 39 U/L 13-39 Egfr Non- 93.6 >60 Egfr 120.4 >60 25 Lipid Profile (Trig/Chol/HDL) 06/20/2016 Triglycerides 122 mg/dL 26 Cholesterol 193 mg/dL 27 HDL Cholesterol 72.3 mg/dL 28 LDL Cholesterol 96 mg/dL 29 Laboratory test 06/20/2016 Free T4 (Free 0.92 ng/dL 0.61-1.12 30 finding Thyroxine) Inr/Protime 06/20/2016 Inr 1.83 High 0.89-1.11 Laboratory test 06/20/2016 Vitamin D Total 25(Oh) 44.8 ng/mL 30-50 31 finding Protime 05/01/2016 PT 44.3 s High (9.2-11.9) Inr 4.22 32 Laboratory test finding 04/13/2016 Wound Culture/Sensi SEE RESULT BELOW 33, 34 MRSA/S. aureus Ssti PCR SEE RESULT BELOW 33, 35 Inr/Protime 11/25/2015 Inr 2.27 High 0.89-1.11 CBC Auto Diff 11/25/2015 White Blood Count 6.0 10^3/uL 3.5-10.8 Red Blood Count 4.38 10^6/uL 4.0-5.4 Hemoglobin 14.7 g/dL 14.0-18.0 Hematocrit 45 % 42-52 Mean Corpuscular Volume 102 fL High 80-94 Mean Corpuscular Hemoglobin 34 pg High 27-31 Mean Corpuscular HGB Conc 33 g/dL 31-36 Red Cell Distribution Width 14 % 10.5-15 Platelet Count 171 10^3/uL 150-450 Mean Platelet Volume 9 um3 7.4-10.4 Abs Neutrophils 3.1 10^3/uL 1.5-7.7 Abs Lymphocytes 1.5 10^3/uL 1.0-4.8 Abs Monocytes 0.9 10^3/uL High 0-0.8 Abs Eosinophils 0.4 10^3/uL 0-0.6 Abs Basophils 0.1 10^3/uL 0-0.2 Abs Nucleated RBC 0.01 10^3/uL Granulocyte % 52.2 % 38-83 Lymphocyte % 24.4 % Low 25-47 Monocyte % 15.4 % High 1-9 Eosinophil % 6.9 % High 0-6 Basophil % 1.1 % 0-2 Nucleated Red Blood Cells % 0.1 Comp Metabolic Panel 11/25/2015 Sodium 135 mmol/L 133-145 Potassium 4.1 mmol/L 3.5-5.0 Chloride 105 mmol/L 101-111 Co2 Carbon Dioxide 25 mmol/L 22-32 Anion Gap 5 mmol/L 2-11 Glucose 88 mg/dL 70-100 Blood Urea Nitrogen 12 mg/dL 6-24 Creatinine 0.83 mg/dL 0.67-1.17 BUN/Creatinine Ratio 14.5 8-20 Calcium 9.4 mg/dL 8.6-10.3 Total Protein 7.2 g/dL 6.4-8.9 Albumin 4.5 g/dL 3.2-5.2 Globulin 2.7 g/dL 2-4 Albumin/Globulin Ratio 1.7 1-3 Total Bilirubin 0.60 mg/dL 0.2-1.0 Alkaline Phosphatase 36 U/L 34-104 Alt 32 U/L 7-52 Ast 36 U/L 13-39 Egfr Non- 96.5 >60 Egfr 124.2 >60 36 Laboratory test finding 11/25/2015 CRP High Sensitivity 0.24 mg/L 37 TSH (Thyroid Stim Horm) 0.34 ?IU/mL 0.34-5.60 Lipid Profile (Trig/Chol/HDL) 11/25/2015 Triglycerides 117 mg/dL 38 Cholesterol 193 mg/dL 39 HDL Cholesterol 62.0 mg/dL 40 LDL Cholesterol 108 mg/dL 41 Laboratory test finding 11/25/2015 Magnesium 2.0 mg/dL 1.9-2.7 Vitamin D Total 25(Oh) 16.6 ng/mL Low 30-50 Hemoglobin A1c (Glyco HGB) 6.0 % Less than 6.0 42 Inr/Protime 09/17/2015 Inr 1.45 High 0.89-1.11 CBC W/Automated Diff 06/21/2015 White Blood Count 6.8 K/uL 3.4-10.5 Red Blood Count 4.40 M/uL 4.20-5.80 Hemoglobin 14.3 gm/dL 12.8-17.0 Hematocrit 44.3 % 38.0-48.0 Mean Cell Volume 100.7 fl High 80.0-96.0 Mean Corpuscular HGB 32.5 pg 27.0-33.0 Mean Corpuscular HGB Conc 32.3 g/dL 31.7-36.0 Platelet Count 177 K/uL 150-400 Red Cell Distri Width SD 52.5 fl High 36-51 Red Cell Distri Width %CV 14.7 % 11.6-15.8 Mean Platelet Volume 11.6 fL High 6.6-10.6 Neut% 50.3 % 33.0-73.0 Lymph % 23.0 % 17.0-56.0 [place] % 11.8 % High 0.0-10.0 Eo% 14.0 % High 0.0-5.0 Bas% 0.9 % 0.1-1.0 Neut# 3.44 K/uL 1.8-7.0 Lymph # 1.57 K/uL Low 1.8-7.0 [place] # 0.81 K/uL High 0.0-0.8 Eos # 0.96 K/uL High 0.0-0.5 Baso # 0.06 K/uL Low 0.1-0.2 Comprehensive Metabolic Panel 06/21/2015 Glucose 85 mg/dL 74-106 BUN 14 mg/dL 7-18 Creatinine 0.9 mg/dL 0.6-1.3 Glom Filtration Rate, Estimate >60 mL/min >60 If >60 mL/min >60 43 BUN/Creat 15.5 ratio Sodium 141 mmol/L 136-145 Potassium 4.6 mmol/L 3.5-5.1 Chloride 109 mmol/L High 98-107 Carbon Dioxide 28 mmol/L 21-32 Anion Gap 4 mEq/L Low 8-16 Calcium 8.5 mg/dL 8.5-10.1 Total Protein 7.1 g/dL 6.4-8.2 Albumin 4.1 g/dL 3.4-5.0 Globulin 3.0 g/dL 1.9-4.3 Alb/Glob 1.4 ratio Bilirubin,Total 0.4 mg/dL 0.2-1.0 Sgot/Ast 40 U/L High 15-37 SGPT/Alt 53 U/L 12-78 Alkaline Phosphatase 49 U/L 45-117 Laboratory test finding 06/21/2015 C-Reactive Protein,Cardiac 0.17 mg/L < 3.0 LDL Cholesterol Profile 06/21/2015 Cholesterol 115 mg/dL < 200 44 Triglycerides 79 mg/dL < 150 45 HDL Cholesterol 34 mg/dL > 40 46 LDL-Cholesterol 65 mg/dL < 100 47 Laboratory test finding 06/21/2015 Magnesium 2.0 mg/dL 1.8-2.4 Thyroid Stim Hormone 0.63 uIU/mL 0.36-3.74 Protime 06/21/2015 Protime 29.5 seconds High 12.1-14.9 Inr 2.8 High 0.9-1.1 48 Laboratory test finding 06/21/2015 Free T4 1.03 ng/dL 0.76-1.46 Protime 04/07/2014 Protime 21.2 seconds High 12.0-14.4 Inr 1.9 High 0.9-1.1 49 Protime 03/16/2014 Protime 20.9 seconds High 12.1-14.9 Inr 1.8 High 0.9-1.1 50 Protime 01/30/2014 Protime 32.4 seconds High 12.0-14.4 Inr 3.2 High 0.9-1.1 51 Protime 12/19/2013 Protime 33.2 seconds High 12.0-14.4 Inr 3.3 High 0.9-1.1 52 Protime 12/11/2013 Protime 16.8 seconds High 12.1-14.9 Inr 1.4 High 0.9-1.1 53 Protime 11/17/2013 Protime 27.1 seconds High 12.0-14.4 Inr 2.5 High 0.9-1.1 54 Protime 11/03/2013 Protime 24.4 seconds High 12.0-14.4 Inr 2.2 High 0.9-1.1 55 Protime 10/22/2013 Protime See Note 56 Protime 10/13/2013 Protime 29.2 seconds High 12.1-14.9 Inr 2.8 High 0.9-1.1 57 Basic Metabolic Panel 10/13/2013 Glucose 67 mg/dL Low 76-115 BUN 10 mg/dL 5-23 Creatinine 1.0 mg/dL 0.5-1.4 Glom Filtration Rate, Estimate >60 mL/min >60 If >60 mL/min >60 58 BUN/Creat 10.0 ratio Sodium 136 mmol/L 136-145 Potassium 4.4 mmol/L 3.5-5.1 Chloride 104 mmol/L 98-107 Carbon Dioxide 29 mEq/L 18-29 Anion Gap 7 mEq/L Low 8-16 Calcium 9.2 mg/dL 8.5-10.1 CBC W/Automated Diff 10/13/2013 White Blood Count 5.8 K/uL 3.4-10.5 Red Blood Count 4.20 M/uL 4.20-5.80 Hemoglobin 14.1 gm/dL 12.8-17.0 Hematocrit 42.9 % 38.0-48.0 Mean Cell Volume 102.1 fl High 80.0-96.0 Mean Corpuscular HGB 33.6 pg High 27.0-33.0 Mean Corpuscular HGB Conc 32.9 g/dL 31.7-36.0 Platelet Count 246 K/uL 150-400 Red Cell Distri Width SD 50.5 fl 36-51 Red Cell Distri Width %CV 13.9 % 11.6-15.8 Mean Platelet Volume 10.4 fL 6.6-10.6 Neut% 48.0 % 33.0-73.0 Lymph % 27.6 % 17.0-56.0 Horry % 12.3 % High 0.0-10.0 Eo% 10.9 % High 0.0-5.0 Bas% 1.2 % High 0.1-1.0 Neut# 2.76 K/uL 1.8-7.0 Lymph # 1.59 K/uL 1.2-4.0 Horry # 0.71 K/uL High 0.0-0.6 Eos # 0.63 K/uL High 0.0-0.5 Baso # 0.07 K/uL Low 0.1-0.2 Laboratory test finding 10/13/2013 Thyroid Stim Hormone 0.83 uIU/mL 0.49- 4.67 Free T4 0.79 ng/dL 0.71-1.85 Liver Function Tests 10/13/2013 Total Protein 7.9 g/dL 6.3-8.0 Albumin 4.5 g/dL 3.5-5.0 Globulin 3.4 g/dL 1.9-4.3 Alb/Glob 1.3 ratio Bilirubin,Total 0.3 mg/dL 0.2-1.2 Bilirubin,Direct < 0.1 mg/dL Low 0.1-0.4 Bilirubin,Indirect 0.2 mg/dL 0.0-0.9 Sgot/Ast 25 U/L 16-40 SGPT/Alt 23 U/L Low 30-65 Alkaline Phosphatase 53 U/L 50-136 LDL Cholesterol Profile 10/13/2013 Cholesterol 182 mg/dL 120-200 Triglycerides 81 mg/dL 16-231 HDL Cholesterol 68 mg/dL 29-83 LDL-Cholesterol 98 mg/dL 62-185 Laboratory test 10/13/2013 C-Reactive Protein,Cardiac 1.39 mg/L 0.00- 3.00 59 finding Sedimentation Rate 1 mm/hr 0-20 Protime 10/03/2013 Protime 33.2 seconds High 12.1-14.9 Inr 3.3 High 0.9-1.1 60 CBC W/Automated Diff 10/03/2013 White Blood Count 6.3 K/uL 3.4-10.5 Red Blood Count 3.87 M/uL Low 4.20-5.80 Hemoglobin 13.3 gm/dL 12.8-17.0 Hematocrit 38.6 % 38.0-48.0 Mean Cell Volume 99.7 fl High 80.0-96.0 Mean Corpuscular HGB 34.4 pg High 27.0-33.0 Mean Corpuscular HGB Conc 34.5 g/dL 31.7-36.0 Platelet Count 253 K/uL 150-400 Red Cell Distri Width SD 47.9 fl 36-51 Red Cell Distri Width %CV 13.4 % 11.6-15.8 Mean Platelet Volume 9.8 fL 6.6-10.6 Neut% 47.1 % 33.0-73.0 Lymph % 27.3 % 17.0-56.0 Horry % 12.0 % High 0.0-10.0 Eo% 11.8 % High 0.0-5.0 Bas% 1.8 % High 0.1-1.0 Neut# 2.96 K/uL 1.8-7.0 Lymph # 1.71 K/uL 1.2-4.0 Horry # 0.75 K/uL High 0.0-0.6 Eos # 0.74 K/uL High 0.0-0.5 Baso # 0.11 K/uL 0.1-0.2 Basic Metabolic Panel 09/29/2013 Glucose 92 mg/dL 76-115 BUN 9 mg/dL 5-23 Creatinine 0.9 mg/dL 0.5-1.4 Glom Filtration Rate, Estimate >60 mL/min >60 If >60 mL/min >60 61 BUN/Creat 10.0 ratio Sodium 137 mmol/L 136-145 Potassium 4.2 mmol/L 3.5-5.1 Chloride 106 mmol/L 98-107 Carbon Dioxide 26 mEq/L 18-29 Anion Gap 9 mEq/L 8-16 Calcium 9.3 mg/dL 8.5-10.1 CBS W/Automated Diff 09/29/2013 White Blood Count 7.1 [...] % 33.0-73.0 Lymph % 21.5 % 17.0-56.0 Horry % 12.5 % High 0.0-10.0 Eo% 9.4 % High 0.0-5.0 Bas% 1.3 % High 0.1-1.0 Neut# 3.92 K/uL 1.8-7.0 Lymph # 1.53 K/uL 1.2-4.0 Horry # 0.89 K/uL High 0.0-0.6 Eos # 0.67 K/uL High 0.0-0.5 Baso # 0.09 K/uL Low 0.1-0.2 Basic Metabolic Panel 09/02/2013 Glucose 77 mg/dL 76-115 BUN 13 mg/dL 5-23 Creatinine 1.0 mg/dL 0.5-1.4 Glom Filtration Rate, Estimate >60 mL/min >60 If >60 mL/min >60 62 BUN/Creat 13.0 ratio Sodium 137 mmol/L 136-145 Potassium 4.7 mmol/L 3.5-5.1 Chloride 105 mmol/L 98-107 Carbon Dioxide 27 mEq/L 18-29 Anion Gap 10 mEq/L 8-16 Calcium 9.3 mg/dL 8.5-10.1 CBC W/Automated Diff 09/02/2013 White Blood Count 8.3 K/uL 3.4-10.5 Red Blood Count 3.86 M/uL Low 4.20-5.80 Hemoglobin 13.0 gm/dL 12.8-17.0 Hematocrit 39.4 % 38.0-48.0 Mean Cell Volume 102.1 fl High 80.0-96.0 Mean Corpuscular HGB 33.7 pg High 27.0-33.0 Mean Corpuscular HGB Conc 33.0 g/dL 31.7-36.0 Platelet Count 181 K/uL 150-400 Red Cell Distri Width SD 48.9 fl 36-51 Red Cell Distri Width %CV 13.4 % 11.6-15.8 Mean Platelet Volume 10.1 fL 6.6-10.6 Neut% 58.2 % 33.0-73.0 Lymph % 18.7 % 17.0-56.0 Horry % 14.0 % High 0.0-10.0 Eo% 8.3 % High 0.0-5.0 Bas% 0.8 % 0.1-1.0 Neut# 4.82 K/uL 1.8-7.0 Lymph # 1.55 K/uL 1.2-4.0 Horry # 1.16 K/uL High 0.0-0.6 Eos # 0.69 K/uL High 0.0-0.5 Baso # 0.07 K/uL Low 0.1-0.2 Protime 09/02/2013 Protime 26.7 seconds High 12.1-14.9 Inr 2.5 High 0.9-1.1 63 Protime 08/04/2013 Protime 13.9 seconds 12.1-14.9 Inr 1.1 0.9-1.1 64 Laboratory test finding 07/16/2013 Thyroid Stim Hormone 0.71 uIU/mL 0.49- 4.67 Free T4 0.93 ng/dL 0.71-1.85 Liver Function Tests 07/07/2013 Total Protein 7.7 g/dL 6.3-8.0 Albumin 4.4 g/dL 3.5-5.0 Globulin 3.3 g/dL 1.9-4.3 Alb/Glob 1.3 ratio Bilirubin,Total 0.6 mg/dL 0.2-1.2 Bilirubin,Direct 0.2 mg/dL 0.1-0.4 Bilirubin,Indirect 0.4 mg/dL 0.0-0.9 Sgot/Ast 57 U/L High 16-40 SGPT/Alt 69 U/L High 30-65 Alkaline Phosphatase 50 U/L 50-136 Laboratory test 07/07/2013 Thyroid Stim 0.30 uIU/mL Low 0.49-4.67 65 finding Hormone CBC W/Automated Diff 07/07/2013 CBS W/Automated Canceled By Lab Diff White Blood Count 6.3 K/uL 3.4-10.5 Red Blood Count 4.43 M/uL 4.20-5.80 Hemoglobin 15.0 gm/dL 12.8-17.0 Hematocrit 44.7 % 38.0-48.0 Mean Cell Volume 100.9 fl High 80.0-96.0 Mean Corpuscular HGB 33.9 pg High 27.0-33.0 Mean Corpuscular HGB Conc 33.6 g/dL 31.7-36.0 Platelet Count 239 K/uL 150-400 Red Cell Distri Width SD 54.2 fl High 36-51 Red Cell Distri Width %CV 14.9 % 11.6-15.8 Mean Platelet Volume 11.3 fL High 6.6-10.6 Neut% 53.2 % 33.0-73.0 Lymph % 24.5 % 17.0-56.0 Horry % 13.9 % High 0.0-10.0 Eo% 7.3 % High 0.0-5.0 Bas% 1.1 % High 0.1-1.0 Neut# 3.36 K/uL 1.8-7.0 Lymph # 1.55 K/uL 1.2-4.0 Horry # 0.88 K/uL High 0.0-0.6 Eos # 0.46 K/uL 0.0-0.5 Baso # 0.07 K/uL Low 0.1-0.2 Prostate Specific Antigen 07/07/2013 PSA (Hammond Loci) 0.16 ng/mL 0.00- 4.00 66 PSA (Centaur CP) 0.16 ng/mL 0.0-4.0 67 Laboratory test finding 07/07/2013 Troponin-I 0.02 ng/mL 0.00-0.50 68 CK-MB (Mass) 1.8 ng/ml 0.5-8.2 Protime 07/07/2013 Protime See Note 69 LDL Cholesterol Profile 07/07/2013 Cholesterol 240 mg/dL High 120-200 Triglycerides 84 mg/dL 16-231 HDL Cholesterol 74 mg/dL 29-83 LDL-Cholesterol 149 mg/dL 62-185 Laboratory test 07/07/2013 C-Reactive Protein,Cardiac 0.34 mg/L 0.00- 3.00 70 finding Sedimentation Rate 1 mm/hr 0-20 Basic Metabolic Panel 07/07/2013 Glucose 120 mg/dL High 76-115 BUN 12 mg/dL 5-23 Creatinine 0.9 mg/dL 0.5-1.4 Glom Filtration Rate, Estimate >60 mL/min >60 If >60 mL/min >60 71 BUN/Creat 13.3 ratio Sodium 138 mmol/L 136-145 Potassium 4.2 mmol/L 3.5-5.1 Chloride 103 mmol/L 98-107 Carbon Dioxide 25 mEq/L 18-29 Anion Gap 14 mEq/L 8-16 Calcium 9.4 mg/dL 8.5-10.1 Protime 06/05/2013 Protime 33.3 seconds High 12.0-14.4 Inr 3.3 High 0.9-1.1 72 Protime 01/23/2013 Protime 26.7 seconds High 12.0-14.4 Inr 2.5 High 0.9-1.1 73 Protime 01/20/2013 Protime See Note 74 Laboratory test finding 01/20/2013 TSH Reflex FT4 and/or 0.37 uIU/mL Low 0.49-4.67 75 FT3 Liver Function Tests 01/20/2013 Liver Function Tests See Note 76 Total Protein 8.5 g/dL High 6.3-8.0 Albumin 4.8 g/dL 3.5-5.0 Globulin 3.7 g/dL 1.9-4.3 Alb/Glob 1.3 ratio Bilirubin,Total 0.4 mg/dL 0.2-1.2 Bilirubin,Direct 0.1 mg/dL 0.1-0.4 Bilirubin,Indirect 0.3 mg/dL 0.0-0.9 Sgot/Ast 93 U/L High 16-40 SGPT/Alt 88 U/L High 30-65 Alkaline Phosphatase 40 U/L Low 50-136 LDL Cholesterol Profile 01/20/2013 LDL Cholesterol Profile See Note 77 Cholesterol 233 mg/dL High 120-200 Triglycerides 73 mg/dL 16-231 HDL Cholesterol 86 mg/dL High 29-83 LDL-Cholesterol 132 mg/dL 62-185 CBC W/Automated Diff 01/20/2013 CBS W/Automated Diff Canceled By Lab White Blood Count 6.8 K/uL 3.4-10.5 Red Blood Count 4.70 M/uL 4.20-5.80 Hemoglobin 15.2 gm/dL 12.8-17.0 Hematocrit 45.8 % 38.0-48.0 Mean Cell Volume 97.4 fl High 80.0-96.0 Mean Corpuscular HGB 32.3 pg 27.0-33.0 Mean Corpuscular HGB Conc 33.2 g/dL 31.7-36.0 Platelet Count 262 K/uL 150-400 Red Cell Distri Width SD 61.9 fl High 36-51 Red Cell Distri Width %CV 17.7 % High 11.6-15.8 Mean Platelet Volume 11.2 fL High 6.6-10.6 Neut% 60.2 % 33.0-73.0 Lymph % 19.6 % 17.0-56.0 H[place] % 10.9 % High 0.0-10.0 Eo% 8.1 % High 0.0-5.0 Bas% 1.2 % High 0.1-1.0 Neut# 4.07 K/uL 1.8-7.0 Lymph # 1.33 K/uL 1.2-4.0 Horry # 0.74 K/uL High 0.0-0.6 Eos # 0.55 K/uL High 0.0-0.5 Baso # 0.08 K/uL Low 0.1-0.2 Basic Metabolic Panel 01/20/2013 Basic Metabolic Panel See Note 78 Glucose 74 mg/dL Low 76-115 BUN 10 mg/dL 5-23 Creatinine 0.7 mg/dL 0.5-1.4 Glom Filtration Rate, Estimate >60 mL/min >60 If >60 mL/min >60 79 BUN/Creat 14.2 ratio Sodium 140 mmol/L 136-145 Potassium 5.4 mmol/L High 3.5-5.1 Chloride 103 mmol/L 98-107 Carbon Dioxide 28 mEq/L 18-29 Anion Gap 14 mEq/L 8-16 Calcium 9.7 mg/dL 8.5-10.1 Protime 12/19/2012 Protime 20.5 seconds High 12.1-14.9 Inr 1.8 High 0.9-1.1 80 Protime 11/14/2012 Protime 32.3 seconds High 12.1-14.9 Inr 3.1 High 0.9-1.1 81 Protime 10/15/2012 Protime 18.1 seconds High 12.1-14.9 Inr 1.5 High 0.9-1.1 82 Protime 09/05/2012 Protime 28.3 seconds High 12.1-14.9 Inr 2.6 High 0.9-1.1 83 Basic Metabolic Panel 09/05/2012 Glucose 78 mg/dL 76-115 BUN 8 mg/dL 5-23 Creatinine 1.1 mg/dL 0.5-1.4 Glom Filtration Rate, Estimate >60 mL/min >60 If >60 mL/min >60 84 BUN/Creat 7.2 ratio Sodium 142 mmol/L 136-145 Potassium 3.9 mmol/L 3.5-5.1 Chloride 109 mmol/L High 98-107 Carbon Dioxide 24 mEq/L 18-29 Anion Gap 13 mEq/L 8-16 Calcium 8.8 mg/dL 8.5-10.1 CBC W/Automated Diff 09/05/2012 White Blood Count 6.9 K/uL 3.4-10.5 Red Blood Count 4.67 M/uL 4.20-5.80 Hemoglobin 15.0 gm/dL 12.8-17.0 Hematocrit 44.6 % 38.0-48.0 Mean Cell Volume 95.5 fl 80.0-96.0 Mean Corpuscular HGB 32.1 pg 27.0-33.0 Mean Corpuscular HGB Conc 33.6 g/dL 31.7-36.0 Platelet Count 221 K/uL 150-400 Red Cell Distri Width SD 51.9 fl High 36-51 Red Cell Distri Width %CV 15.1 % 11.6-15.8 Mean Platelet Volume 10.8 fL High 6.6-10.6 Neut% 43.6 % 33.0-73.0 Lymph % 31.3 % 17.0-56.0 H[place] % 13.2 % High 0.0-10.0 Eo% 10.7 % High 0.0-5.0 Bas% 1.2 % High 0.1-1.0 Neut# 3.01 K/uL 1.8-7.0 Lymph # 2.16 K/uL 1.2-4.0 Horry # 0.91 K/uL High 0.0-0.6 Eos # 0.74 K/uL High 0.0-0.5 Baso # 0.08 K/uL Low 0.1-0.2 LDL Cholesterol Profile 07/02/2012 Cholesterol 242 mg/dL High 120-200 Triglycerides 143 mg/dL 16-231 HDL Cholesterol 61 mg/dL 29-83 LDL-Cholesterol 152 mg/dL 62-185 Laboratory test finding 07/02/2012 TSH Reflex FT4 1.96 uIU/mL 0.49-4.67 85 and/or FT3 Protime 07/02/2012 Protime 18.2 seconds High 12.1-14.9 Inr 1.5 High 0.9-1.1 86 Liver Function Tests 07/02/2012 Total Protein 7.7 g/dL 6.3-8.0 Albumin 4.3 g/dL 3.5-5.0 Globulin 3.4 g/dL 1.9-4.3 Alb/Glob 1.3 ratio Bilirubin,Total 0.8 mg/dL 0.2-1.2 Bilirubin,Direct 0.2 mg/dL 0.1-0.4 Bilirubin,Indirect 0.6 mg/dL 0.0-0.9 Sgot/Ast 45 U/L High 16-40 SGPT/Alt 38 U/L 30-65 Alkaline Phosphatase 50 U/L 50-136 Basic Metabolic Panel 07/02/2012 Glucose 80 mg/dL 76-115 BUN 9 mg/dL 5-23 Creatinine 0.9 mg/dL 0.5-1.4 Glom Filtration Rate, Estimate >60 mL/min >60 If >60 mL/min >60 87 BUN/Creat 10.0 ratio Sodium 137 mmol/L 136-145 Potassium 4.3 mmol/L 3.5-5.1 Chloride 104 mmol/L 98-107 Carbon Dioxide 25 mEq/L 18-29 Anion Gap 12 mEq/L 8-16 Calcium 9.2 mg/dL 8.5-10.1 CBC W/Automated Diff 07/02/2012 White Blood Count 8.0 K/uL 3.4-10.5 Red Blood Count 4.49 M/uL 4.20-5.80 Hemoglobin 14.4 gm/dL 12.8-17.0 Hematocrit 42.3 % 38.0-48.0 Mean Cell Volume 94.2 fl 80.0-96.0 Mean Corpuscular HGB 32.1 pg 27.0-33.0 Mean Corpuscular HGB Conc 34.0 g/dL 31.7-36.0 Platelet Count 220 K/uL 150-400 Red Cell Distri Width SD 49.6 fl 36-51 Red Cell Distri Width %CV 14.8 % 11.6-15.8 Mean Platelet Volume 11.2 fL High 6.6-10.6 Neut% 52.7 % 33.0-73.0 Lymph % 24.6 % 17.0-56.0 [place] % 12.6 % High 0.0-10.0 Eo% 9.5 % High 0.0-5.0 Bas% 0.6 % 0.1-1.0 Neut# 4.23 K/uL 1.8-7.0 Lymph # 1.97 K/uL 1.2-4.0 Horry # 1.01 K/uL High 0.0-0.6 Eos # 0.76 K/uL High 0.0-0.5 Baso # 0.05 K/uL Low 0.1-0.2 1 Verbal to GUSTABO Gamboa by [id number] at 1548 on 01/30/18. Results read back accurately. 2 POSSIBLE HEART ATTACK 3 0.0 - 0.045 ng/mL: Normal 0.046 - 0.5 ng/mL: Suggestive 0.6 - 1.5 ng/mL: Consistent 4 Note: Persistent reduction for 3 months or more in an eGFR <60 mL/min/1.73 m2 defines CKD. Patients with eGFR values >/=60 mL/min/1.73 m2 may also have CKD if evidence of persistent proteinuria is present. The original MDRD equation for estimated GFR is not valid for patients less than 18 years of age. Additional information may be found at www.kdoqi.org. 5 0.0 - 0.045 ng/mL: Normal 0.046 - 0.5 ng/mL: Suggestive 0.6 - 1.5 ng/mL: Consistent 6 [id number] 9 Desirable <150 Borderline high 150-199 High 200-499 Very High >500 10 Desirable <200 Borderline high 200-239 High >239 11 Low <40 Desirable: 40-60 High: >60 12 Desirable: <100 mg/dL Near Optimal: 100-129 mg/dL Borderline High: 130-159 mg/dL High: 160-189 mg/dL Very High: >189 mg/dL 13 Because ethnic data is not always readily available, this report includes an eGFR for both -Americans and non- Americans. The National Kidney Disease Education Program (NKDEP) does not endorse the use of the MDRD equation for patients that are not between the ages of 18 and 70, are , have extremes of body size, muscle mass, or nutritional status, or are non- or non-. According to the National Kidney Foundation, irrespective of diagnosis, the stage of the disease is based on the level of kidney function: Stage Description GFR(mL/min/1.73 m(2)) 1 Kidney damage with normal or decreased GFR 90 2 Kidney damage with mild decrease in GFR 60-89 3 Moderate decrease in GFR 30-59 4 Severe decrease in GFR 15-29 5 Kidney failure <15 (or dialysis) 14 [id number] 18 Desirable <150 Borderline high 150-199 High 200-499 Very High >500 19 Desirable <200 Borderline high 200-239 High >239 20 Low <40 Desirable: 40-60 High: >60 21 Desirable: <100 mg/dL Near Optimal: 100-129 mg/dL Borderline High: 130-159 mg/dL High: 160-189 mg/dL Very High: >189 mg/dL 22 Because ethnic data is not always readily available, this report includes an eGFR for both -Americans and non- Americans. The National Kidney Disease Education Program (NKDEP) does not endorse the use of the MDRD equation for patients that are not between the ages of 18 and 70, are , have extremes of body size, muscle mass, or nutritional status, or are non- or non-. According to the National Kidney Foundation, irrespective of diagnosis, the stage of the disease is based on the level of kidney function: Stage Description GFR(mL/min/1.73 m(2)) 1 Kidney damage with normal or decreased GFR 90 2 Kidney damage with mild decrease in GFR 60-89 3 Moderate decrease in GFR 30-59 4 Severe decrease in GFR 15-29 5 Kidney failure <15 (or dialysis) 23 BLEEDING RECTALLY AND IS ON WARFARIN 24 Note: Persistent reduction for 3 months or more in an eGFR <60 mL/min/1.73 m2 defines CKD. Patients with eGFR values >/=60 mL/min/1.73 m2 may also have CKD if evidence of persistent proteinuria is present. The original MDRD equation for estimated GFR is not valid for patients less than 18 years of age. Additional information may be found at www.kdoqi.org. 25 Because ethnic data is not always readily available, this report includes an eGFR for both -Americans and non- Americans. The National Kidney Disease Education Program (NKDEP) does not endorse the use of the MDRD equation for patients that are not between the ages of 18 and 70, are , have extremes of body size, muscle mass, or nutritional status, or are non- or non-. According to the National Kidney Foundation, irrespective of diagnosis, the stage of the disease is based on the level of kidney function: Stage Description GFR(mL/min/1.73 m(2)) 1 Kidney damage with normal or decreased GFR 90 2 Kidney damage with mild decrease in GFR 60-89 3 Moderate decrease in GFR 30-59 4 Severe decrease in GFR 15-29 5 Kidney failure <15 (or dialysis) 26 Desirable <150 Borderline high 150-199 High 200-499 Very High >500 27 Desirable <200 Borderline high 200-239 High >239 28 Low <40 Desirable: 40-60 High: >60 29 Desirable: <100 mg/dL Near Optimal: 100-129 mg/dL Borderline High: 130-159 mg/dL High: 160-189 mg/dL Very High: >189 mg/dL 30 [id number] SUGGESTED THERAPEUTIC RANGES USING INR FOR STABILIZED ANTICOAGULATED PATIENTS: STANDARD DOSE THERAPY INR 2.0-3.0 DVT, PE, PREVENT DVT OR EMBOLISM HIGH DOSE THERAPY INR 2.5-3.5 PREVENT EMBOLISM FROM MECHANICAL HEART VALVE 33 [id number] 34 SEE RESULT BELOW Name: JENNIFER BROWNE: [address]: Andrea Wilder MD Acct: [id number] Unit: [id number] AGE: 55 Location: [facility] Re04/13/16 SEX: M Status: DEP ER SPEC: [id number] RENATO: 04/13/[address]: Jorje Rodriguez MD REQ: [id number] RECD: 04/14/16 STATUS: RES LAMAR DR: Champ Wilder MD _ SOURCE: FINGER SPDESC: ORDERED: MRSA/SA SSTI, Culture Stain COMMENTS: [id number] Procedure Result Reported Site MRSA/S. aureus SSTI PCR PENDING Wound/Misc Gram Stain Final 04/14/16- 1154 ML 2+ Neutrophils 1+ Gram Positive Cocci Wound/Misc Culture PENDING * ML - [facility] ([facility]) . END OF REPORT * ML=Testing performed at Main Lab DEPARTMENT OF PATHOLOGY, [address] [place] [address] Jass Hawley M.D. Director [facility] # [id number] 35 SEE RESULT BELOW Name: JENNIFER BROWNE : [address]: Andrea iWlder MD Acct: [id number] Unit: [id number] AGE: 55 Location: [facility] Re04/13/16 SEX: M Status: DEP ER SPEC: [id number] RENATO: 04/13/16-1919 [facility] DR: Jorje Rodriguez MD REQ: [id number] RECD: 04/14/16 STATUS: [facility] DR: Champ Wilder MD _ SOURCE: FINGER SPDESC: ORDERED: MRSA/SA SSTI, Culture Stain COMMENTS: [id number] Verbal to [id number] by [id number] at 1353 on 04/14/16. Results read back accurately. Procedure Result Reported Site MRSA/S. aureus SSTI PCR Final 04/14/16- 1354 ML Organism 1 MRSA NEGATIVE Organism 2 S.AUREUS POSITIVE Wound/Misc Gram Stain Final 04/14/16- 1154 ML 2+ Neutrophils 1+ Gram Positive Cocci Wound/Misc Culture Final 04/16/16- 0833 ML Organism 1 STAPHYLOCOCCUS AUREUS Quantity 1+ 1. STAPHYLOCOCCUS AUREUS M.I.C. RX --------- ------ Penicillin >=0.5 R Clindamycin <=0.25 S Erythromycin >=8 R Gentamicin <=0.5 S Linezolid 2 S Nitrofurantoin <=16 S Oxacillin 0.5 S * Quinupristin/Dalfopristin 0.5 S Rifampin <=0.5 S CONTINUED ON NEXT PAGE * ML=Testing performed at Main Lab DEPARTMENT OF PATHOLOGY, [address] [place] [address] Jass Hawley M.D. Director [facility] # [id number] Patient: JENNIFER BROWNE [id number] (Continued) Specimen: [id number] Collected: 04/13/16 Received: 04/14/16 (Continued) Procedure Result Reported Site Wound/Misc Culture Final (continued) 04/16/16- 832 1. STAPHYLOCOCCUS AUREUS (continued) M.I.C. RX --------- ------ Tetracycline <=1 S Doxycycline - Deduced S * Minocycline - Deduced S Trimethoprim/Sulfamethoxazole <=10 S Vancomycin 2 S Imipenem-Deduced S * Ampicillin/Sulbactam-Deduced S Cefazolin-Deduced S * These antibiotics are not available in the [facility] Formulary Contact the Microbiology Department for any additional antibiotic reporting. * ML - MAIN LAB (PSC1) . END OF REPORT * ML=Testing performed at Main Lab DEPARTMENT OF PATHOLOGY, [address] [place] [address] Jass Hawley M.D. Director [facility] # [id number] 36 Because ethnic data is not always readily available, this report includes an eGFR for both -Americans and non- Americans. The National Kidney Disease Education Program (NKDEP) does not endorse the use of the MDRD equation for patients that are not between the ages of 18 and 70, are , have extremes of body size, muscle mass, or nutritional status, or are non- or non-. According to the National Kidney Foundation, irrespective of diagnosis, the stage of the disease is based on the level of kidney function: Stage Description GFR(mL/min/1.73 m(2)) 1 Kidney damage with normal or decreased GFR 90 2 Kidney damage with mild decrease in GFR 60-89 3 Moderate decrease in GFR 30-59 4 Severe decrease in GFR 15-29 5 Kidney failure <15 (or dialysis) 37 Low risk: <1.00 Average risk: 1.00-3.00 High risk: >3.00 38 Desirable <150 Borderline high 150-199 High 200-499 Very High >500 39 Desirable <200 Borderline high 200-239 High >239 40 Low <40 Desirable: 40-60 High: >60 41 Desirable: <100 mg/dL Near Optimal: 100-129 mg/dL Borderline High: 130-159 mg/dL High: 160-189 mg/dL Very High: >189 mg/dL 42 Therapeutic target for the treatment of diabetes Mellitus patients is <7% HBA1C, and in selective patients <6.0%.Please refer to [place] [employer] Diabetic care guidelines for further information. 43 Note: Persistent reduction for 3 months or more in an eGFR <60 mL/min/1.73 m2 defines CKD. Patients with eGFR values >/=60 mL/min/1.73 m2 may also have CKD if evidence of persistent proteinuria is present. The original MDRD equation for estimated GFR is not valid for patients less than 18 years of age. Additional information may be found at www.kdoqi.org. 44 Reference Guidelines*: Desirable: ........... < 200 mg/dL Borderline High: ..... 200-239 mg/dL High: ................ >=240 mg/dL * The National Cholesterol Education Program (NCEP) 45 Reference Guidelines*: Normal: ............. < 150 mg/dL Borderline High: .... 150-199 mg/dL High: ............... 200-499 mg/dL Very High: .......... > 500 mg/dL * Source: National Cholesterol Education Program (NCEP) 46 Reference Guidelines*: Low HDL: ..... < 40 mg/dL Normal: ..... 40-60 mg/dL Desirable: ... > 60 mg/dL *The National Cholesterol Education Program(NCEP) 47 Reference Guidelines*: Optimal:........... <100 mg/dL Near Optimal....... 100-129 mg/dL Borderline High.... 130-159 mg/dL High............... 160-189 mg/dL Very High.......... >=190 mg/dL * Source: National Cholesterol Education Program (NCEP) 48 THERAPEUTIC INR RANGE: 2.0 - 3.0 DVT, Pulmonary embolus, prophylaxis against venous thrombosis or systemic embolization in high risk patients. 2.5 - 3.5 Mechanical heart valves 49 THERAPEUTIC INR RANGE: 2.0 - 3.0 DVT, Pulmonary embolus, prophylaxis against venous thrombosis or systemic embolization in high risk patients. 2.5 - 3.5 Mechanical heart valves 50 THERAPEUTIC INR RANGE: 2.0 - 3.0 DVT, Pulmonary embolus, prophylaxis against venous thrombosis or systemic embolization in high risk patients. 2.5 - 3.5 Mechanical heart valves 51 THERAPEUTIC INR RANGE: 2.0 - 3.0 DVT, Pulmonary embolus, prophylaxis against venous thrombosis or systemic embolization in high risk patients. 2.5 - 3.5 Mechanical heart valves 52 THERAPEUTIC INR RANGE: 2.0 - 3.0 DVT, Pulmonary embolus, prophylaxis against venous thrombosis or systemic embolization in high risk patients. 2.5 - 3.5 Mechanical heart valves 53 THERAPEUTIC INR RANGE: 2.0 - 3.0 DVT, Pulmonary embolus, prophylaxis against venous thrombosis or systemic embolization in high risk patients. 2.5 - 3.5 Mechanical heart valves 54 THERAPEUTIC INR RANGE: 2.0 - 3.0 DVT, Pulmonary embolus, prophylaxis against venous thrombosis or systemic embolization in high risk patients. 2.5 - 3.5 Mechanical heart valves 55 THERAPEUTIC INR RANGE: 2.0 - 3.0 DVT, Pulmonary embolus, prophylaxis against venous thrombosis or systemic embolization in high risk patients. 2.5 - 3.5 Mechanical heart valves 56 QNS FOR TEST ORDERED - PLEASE CALL OFFIC TO ARRANGE FOR RECOLLECTION 57 THERAPEUTIC INR RANGE: 2.0 - 3.0 DVT, Pulmonary embolus, prophylaxis against venous thrombosis or systemic embolization in high risk patients. 2.5 - 3.5 Mechanical heart valves 58 Note: Persistent reduction for 3 months or more in an eGFR <60 mL/min/1.73 m2 defines CKD. Patients with eGFR values >/=60 mL/min/1.73 m2 may also have CKD if evidence of persistent proteinuria is present. The original MDRD equation for estimated GFR is not valid for patients less than 18 years of age. Additional information may be found at [email or web address]. 59 Relative Risk for Future Cardiovascular Event Low <1.00 Average 1.00 - 3.00 High >3.00 60 THERAPEUTIC INR RANGE: 2.0 - 3.0 DVT, Pulmonary embolus, prophylaxis against venous thrombosis or systemic embolization in high risk patients. 2.5 - 3.5 Mechanical heart valves 61 Note: Persistent reduction for 3 months or more in an eGFR <60 mL/min/1.73 m2 defines CKD. Patients with eGFR values >/=60 mL/min/1.73 m2 may also have CKD if evidence of persistent proteinuria is present. The original MDRD equation for estimated GFR is not valid for patients less than 18 years of age. Additional information may be found at [email or web address]. 62 Note: Persistent reduction for 3 months or more in an eGFR <60 mL/min/1.73 m2 defines CKD. Patients with eGFR values >/=60 mL/min/1.73 m2 may also have CKD if evidence of persistent proteinuria is present. The original MDRD equation for estimated GFR is not valid for patients less than 18 years of age. Additional information may be found at [email or web address]. 63 THERAPEUTIC INR RANGE: 2.0 - 3.0 DVT, Pulmonary embolus, prophylaxis against venous thrombosis or systemic embolization in high risk patients. 2.5 - 3.5 Mechanical heart valves 64 THERAPEUTIC INR RANGE: 2.0 - 3.0 DVT, Pulmonary embolus, prophylaxis against venous thrombosis or systemic embolization in high risk patients. 2.5 - 3.5 Mechanical heart valves 65 A low TSH should not be the sole basis for diagnosing primary hyperthyroidism, or primary hypopituitary function. Additional tests are suggested for confirmation. 66 THIS ASSAY IS NOT INTENDED A CANCER SCREENING TEST The concentration of PSA in a given specimen, determined with assays from different manufacturers, can vary due to differences in assay methods and reagent specificity. Values obtained from different assay methods cannot be used interchangeably. 67 Test PSA ([employer]) is provided in conjunction with the PSA ([employer]ond 140Fire) method to assist in establishing a new baseline for serially monitored patients. THIS ASSAY IS NOT INTENDED A CANCER SCREENING TEST 68 0 - 0.5 ng/mL: No evidence of myocardial injury 0.6 - 1.4 ng/mL: Mild elevation, suggesting possible myocardial injury > 1.4 ng/mL: Consistent with myocardial injury 69 07/07/13 LAB.BEW NO BLUE TOP SENT 70 Relative Risk for Future Cardiovascular Event Low <1.00 Average 1.00 - 3.00 High >3.00 71 Note: Persistent reduction for 3 months or more in an eGFR <60 mL/min/1.73 m2 defines CKD. Patients with eGFR values >/=60 mL/min/1.73 m2 may also have CKD if evidence of persistent proteinuria is present. The original MDRD equation for estimated GFR is not valid for patients less than 18 years of age. Additional information may be found at [email or web address]. 72 THERAPEUTIC INR RANGE: 2.0 - 3.0 DVT, Pulmonary embolus, prophylaxis against venous thrombosis or systemic embolization in high risk patients. 2.5 - 3.5 Mechanical heart valves 73 THERAPEUTIC INR RANGE: 2.0 - 3.0 DVT, Pulmonary embolus, prophylaxis against venous thrombosis or systemic embolization in high risk patients. 2.5 - 3.5 Mechanical heart valves 74 01/20/13 LAB.KAF1 NO BLUE TOP RECEIVED 75 A low TSH should not be the sole basis for diagnosing primary hyperthyroidism, or primary hypopituitary function. Additional tests are suggested for confirmation. 76 HEMOLYZED 77 HEMOLYZED 78 HEMOLYZED 79 Note: Persistent reduction for 3 months or more in an eGFR <60 mL/min/1.73 m2 defines CKD. Patients with eGFR values >/=60 mL/min/1.73 m2 may also have CKD if evidence of persistent proteinuria is present. The original MDRD equation for estimated GFR is not valid for patients less than 18 years of age. Additional information may be found at [email or web address]. 80 THERAPEUTIC INR RANGE: 2.0 - 3.0 DVT, Pulmonary embolus, prophylaxis against venous thrombosis or systemic embolization in high risk patients. 2.5 - 3.5 Mechanical heart valves 81 THERAPEUTIC INR RANGE: 2.0 - 3.0 DVT, Pulmonary embolus, prophylaxis against venous thrombosis or systemic embolization in high risk patients. 2.5 - 3.5 Mechanical heart valves 82 THERAPEUTIC INR RANGE: 2.0 - 3.0 DVT, Pulmonary embolus, prophylaxis against venous thrombosis or systemic embolization in high risk patients. 2.5 - 3.5 Mechanical heart valves 83 THERAPEUTIC INR RANGE: 2.0 - 3.0 DVT, Pulmonary embolus, prophylaxis against venous thrombosis or systemic embolization in high risk patients. 2.5 - 3.5 Mechanical heart valves 84 Note: Persistent reduction for 3 months or more in an eGFR <60 mL/min/1.73 m2 defines CKD. Patients with eGFR values >/=60 mL/min/1.73 m2 may also have CKD if evidence of persistent proteinuria is present. The original MDRD equation for estimated GFR is not valid for patients less than 18 years of age. Additional information may be found at [email or web address]. 85 QUERY: Add FT3 if TSH abnormal? FT3 N QUERY: Add FT4 if TSH Abnormal? FT4 N 86 THERAPEUTIC INR RANGE: 2.0 - 3.0 DVT, Pulmonary embolus, prophylaxis against venous thrombosis or systemic embolization in high risk patients. 2.5 - 3.5 Mechanical heart valves 87 Note: Persistent reduction for 3 months or [...] [email or web address]. Procedures Date CPT Code Description Status 09/12/2016 26707 EKG Completed 06/29/2015 37591 I & D Abscess Simple/Single Incl. Completed Furuncle/Carbuncle/Cyst 06/21/2015 15958 Visual Screening Test Completed 06/21/2015 40553 EKG Completed 06/21/2015 88131 Audiometry, Bekesy, Screening Completed 12/11/2013 38519 EKG Completed 07/17/2013 26266 Visual Screening Test Completed 07/17/2013 63894 Audiomoter, Threshold Completed 07/07/2013 27509 EKG Completed 01/20/2013 10591 EKG Completed Encounters Type Date Location Provider CPT E/M Dx Office Visit 05/01/2018 8:00a [facility] Champ Alexander M.D. 46048 I25.10 I42.9 Z95.2 F41.9 M25.572 E78.2 I49.9 E03.9 M15.9 Z95.810 J30.9 L40.9 B35.1 I44.7 H90.6 E55.9 M54.5 M54.17 M79.605 K64.9 G47.00 F10.10 Z79.891 R06.02 R07.9 F17.210 Office Visit 03/20/2018 11:00a [facility] Champ Alexander M.D. 70123 I25.10 I42.9 Z95.2 F41.9 M25.572 E78.2 I49.9 E03.9 M15.9 Z95.810 J30.9 L40.9 B35.1 I44.7 H90.6 E55.9 M54.5 M54.17 M79.605 K64.9 G47.00 F10.10 Z79.891 R06.02 R07.9 F17.210 Office Visit 02/27/2018 9:00a [facility] Champ Alexander M.D. 09448 I25.10 I42.9 Z95.2 F41.9 M25.572 E78.2 I49.9 E03.9 M15.9 Z95.810 J30.9 L40.9 B35.1 I44.7 H90.6 E55.9 M54.5 M54.17 M79.605 K64.9 G47.00 F10.10 Z79.891 R06.02 R07.9 F17.210 Office Visit 02/13/2018 8:00a [facility] Champ Alexander M.D. 61524 I25.10 I42.9 Z95.2 F41.9 M25.572 E78.2 I49.9 E03.9 M15.9 Z95.810 J30.9 L40.9 B35.1 I44.7 H90.6 E55.9 M54.5 M54.17 M79.605 K64.9 G47.00 F10.10 Z79.891 R06.02 R07.9 Office Visit 01/30/2018 8:00a [facility] Champ Alexander M.D. 58521 I25.10 I42.9 Z95.2 F41.9 M25.572 E78.2 I49.9 E03.9 M15.9 Z95.810 J30.9 L40.9 B35.1 I44.7 H90.6 E55.9 M54.5 M54.17 M79.605 K64.9 G47.00 F10.10 Z79.891 R06.02 R07.9 Office Visit 12/05/2017 9:45a [facility] Champ Alexander M.D. 31575 I25.10 I42.9 Z95.2 F41.9 M25.572 E78.2 I49.9 E03.9 M15.9 Z95.810 J30.9 L40.9 B35.1 I44.7 H90.6 E55.9 M54.5 M54.17 M79.605 K64.9 G47.00 F10.10 Z79.891 R06.02 R07.9 Office Visit 10/17/2017 8:45a [facility] Champ Alexander M.D. 31994 I25.10 I42.9 Z95.2 F41.9 M25.572 E78.2 I49.9 E03.9 M15.9 Z95.810 J30.9 L40.9 B35.1 I44.7 H90.6 E55.9 M54.5 M54.17 M79.605 K64.9 G47.00 F10.10 Z79.891 Office Visit 10/02/2017 4:00p [facility] Champ Alexander M.D. 79973 I25.10 I42.9 Z95.2 F41.9 M25.572 E78.2 I49.9 E03.9 M15.9 Z95.810 J30.9 L40.9 B35.1 I44.7 H90.6 E55.9 M54.5 M54.17 M79.605 K64.9 G47.00 F10.10 Z79.891 Z00.01 Office Visit 08/21/2017 8:30a [facility] Champ Alexander M.D. 43055 I25.10 I42.9 Z95.2 F41.9 M25.572 E78.2 I49.9 E03.9 M15.9 Z95.810 J30.9 L40.9 B35.1 I44.7 H90.6 E55.9 M54.5 M54.17 M79.605 K64.9 G47.00 F10.10 Z79.891 Z28.20 Office Visit 07/13/2017 9:00a [facility] Champ Alexander M.D. 56738 I25.10 I42.9 Z95.2 F41.9 M25.572 E78.2 I49.9 E03.9 M15.9 Z95.810 J30.9 L40.9 B35.1 I44.7 H90.6 E55.9 M54.5 M54.17 M79.605 G47.00 K64.9 F10.10 Z79.891 Office Visit 04/06/2017 3:45p [facility] Champ Alexander M.D. 78799 I25.10 I42.9 Z95.2 F41.9 M25.572 E78.2 I49.9 E03.9 M15.9 Z95.810 J30.9 L40.9 B35.1 I44.7 H90.6 E55.9 M54.5 M54.17 M79.605 G47.00 K64.9 F10.10 Z79.891 Office Visit 02/19/2017 2:00p [facility] Jose Reynolds [facility] 47036 I25.10 I42.9 Z95.2 D68.4 F41.9 Office Visit 01/18/2017 4:30p [facility] Champ Alexander M.D. 94013 I25.10 I42.9 Z95.2 M25.572 E78.2 I49.9 E03.9 M15.9 Z95.810 J30.9 L40.9 B35.1 I44.7 H90.6 E55.9 M54.5 M54.17 M79.605 G47.00 K64.9 Office Visit 12/08/2016 10:15a [facility] Champ Alexander M.D. 03654 I25.10 I42.9 Z95.2 M25.572 E78.2 I49.9 E03.9 M15.9 Z95.810 J30.9 L40.9 B35.1 I44.7 H90.6 E55.9 M54.5 M54.17 M79.605 G47.00 K64.9 Office Visit 11/23/2016 11:15a [facility] Champ Alexander M.D. 77927 I25.10 I42.9 Z95.2 M25.572 E78.2 I49.9 E03.9 M15.9 Z95.810 J30.9 L40.9 B35.1 I44.7 H90.6 E55.9 M54.5 M54.17 M79.605 G47.00 K64.9 Office Visit 09/12/2016 11:30a [facility] Champ Alexander M.D. 26837 I25.10 I42.9 Z95.2 M25.572 E78.2 I49.9 E03.9 M15.9 Z95.810 J30.9 L40.9 Z68.25 B35.1 I44.7 H90.6 E55.9 M54.5 M54.17 M79.605 G47.00 Z00.01 Office Visit 06/20/2016 4:45p [facility] Champ Alexander M.D. 68994 I25.10 I42.9 Z95.2 M25.572 E78.2 I49.9 E03.9 M15.9 Z95.810 J30.9 L40.9 B35.1 I44.7 H90.6 E55.9 Office Visit 05/01/2016 2:30p [facility] Jose Reynolds [facility] 17139 I25.10 I42.9 Z95.2 M25.572 E78.2 I49.9 E03.9 M15.9 D68.4 Office Visit 03/15/2016 4:15p [facility] Jose Reynolds [facility] 19396 I25.10 I42.9 Z95.2 M25.572 E78.2 H91.8x3 Office Visit 01/17/2016 11:15a [facility] Champ Alexander M.D. 30950 I25.10 I42.9 Z95.2 M25.572 E78.2 H91.8x3 I49.9 E03.9 Z95.810 J30.9 L40.9 M15.9 B35.1 I44.7 Office Visit 11/25/2015 9:30a [facility] Champ Alexander M.D. 64203 I25.10 I42.9 Z95.2 M25.572 E78.2 H91.8x3 I49.9 E03.9 Z95.810 J30.9 L40.9 M15.9 B35.1 I44.7 Office Visit 09/17/2015 1:45p [facility] Champ Alexander M.D. 13443 I25.10 I42.9 Z95.2 M25.572 E78.2 H91.8x3 I49.9 E03.9 Z95.810 J30.9 L40.9 M15.9 B35.1 I44.7 Office Visit 06/29/2015 9:15a [facility] Champ Alexander M.D. 87489 414.01 425.4 V43.3 286.7 719.47 715.90 696.8 272.2 389.8 427.9 244.9 V45.02 477.9 110.1 214.8 426.50 Office Visit 06/21/2015 8:30a [facility] Champ Alexander M.D. 79290 V85.24 V76.44 V76.41 V70.0 414.01 425.4 V43.3 286.7 719.47 715.90 696.8 272.2 389.8 427.9 244.9 V45.02 477.9 110.1 214.8 305.1 426.50 Office Visit 06/01/2015 10:45a [facility] Champ Alexander M.D. 74243 414.01 425.4 V43.3 286.7 719.47 715.90 696.8 272.2 389.8 427.9 244.9 V45.02 477.9 110.1 214.8 Office Visit 04/07/2014 2:45p [facility] Champ Alexander M.D. 76531 414.01 425.4 V43.3 286.7 719.47 715.90 696.8 272.2 389.8 427.9 244.9 V45.02 477.9 Office Visit 03/06/2014 10:00a [facility] Yajaira Anderson [facility] 53500 414.01 425.4 V43.3 286.7 719.47 715.90 696.8 272.2 389.8 427.9 244.9 V45.02 477.9 Office Visit 01/30/2014 1:30p [facility] Yajaira Anderson [facility] 57839 414.01 425.4 V43.3 286.7 719.47 715.90 696.8 272.2 389.8 427.9 244.9 V45.02 477.9 Office Visit 12/19/2013 8:45a [facility] Yajaira Anderson [facility] 33153 414.01 425.4 V43.3 286.7 719.47 715.90 696.8 272.2 389.8 427.9 244.9 V45.02 477.9 Office Visit 12/11/2013 8:45a [facility] Yajaira Anderson [facility] 76779 414.01 425.4 V43.3 286.7 719.47 715.90 696.8 272.2 389.8 427.9 244.9 V45.02 477.9 Office Visit 11/17/2013 10:30a [facility] Yajaira Anderson [facility] 67083 414.01 425.4 V43.3 286.7 719.47 715.90 696.8 272.2 389.8 427.9 244.9 V45.02 883.0 Office Visit 11/03/2013 9:30a [facility] Yajaira Anderson [facility] 99907 414.01 425.4 V43.3 286.7 719.47 715.90 696.8 272.2 389.8 305.1 427.9 244.9 V45.02 Office Visit 10/22/2013 8:30a [facility] Yajaira Anderson [facility] 13974 682.8 414.01 425.4 V43.3 286.7 719.47 715.90 696.8 272.2 389.8 305.1 427.9 244.9 V45.02 Office Visit 10/13/2013 10:00a [facility] Yajaira Anderson, [facility] 54678 682.8 414.01 425.4 V43.3 286.7 719.47 715.90 696.8 272.2 389.8 305.1 427.9 244.9 V45.02 Office Visit 10/02/2013 3:00p [facility] Yajaira Anderson [facility] 55669 414.01 425.4 719.47 715.90 V43.3 696.8 272.2 286.7 389.8 427.9 244.9 V45.02 305.1 Office Visit 09/02/2013 9:00a [facility] Champ Alexander M.D. 32090 414.01 425.4 V43.3 286.7 719.47 715.90 696.8 272.2 389.8 305.1 427.9 244.9 782.7 V45.02 Office Visit 08/04/2013 10:15a [facility] Champ Alexander M.D. 69047 246.8 414.01 425.4 V43.3 286.7 719.47 715.90 696.8 272.2 368.8 V85.23 389.8 305.1 427.9 Office Visit 07/17/2013 11:00a [facility] Champ Alexander M.D. 27294 V70.0 246.8 414.01 425.4 V43.3 286.7 719.47 715.90 696.8 272.2 368.8 V85.23 389.8 V64.06 Office Visit 07/16/2013 11:45a [facility] Yajaira Anderson [facility] 14604 246.8 414.01 425.4 V43.3 286.7 719.47 715.90 696.8 272.2 786.59 Office Visit 07/07/2013 8:45a [facility] Yajaira Anderson [facility] 63795 414.01 425.4 V43.3 286.7 719.47 715.90 696.8 272.2 786.59 Office Visit 06/05/2013 2:30p [facility] Champ Alexander M.D. 99777 414.01 425.4 V43.3 286.7 719.47 715.90 696.8 272.2 Office Visit 03/11/2013 4:30p [facility] Champ Alexander M.D. 67594 214.1 724.1 Office Visit 02/27/2013 4:00p [facility] Champ Alexander M.D. 15545 214.1 724.1 Office Visit 02/25/2013 4:45p [facility] Champ Alexander M.D. 50036 414.01 425.4 V43.3 286.7 719.47 715.90 305.1 696.8 272.2 Office Visit 02/06/2013 10:15a [facility] Champ Alexander M.D. 62197 V43.3 286.7 719.47 715.90 305.1 696.8 272.2 414.00 Office Visit 01/20/2013 9:30a [facility] Champ Alexander M.D. 08450 V43.3 286.7 719.47 715.90 305.1 696.8 272.2 427.89 Office Visit 12/19/2012 10:45a [facility] Champ Alexander M.D. 14959 V43.3 286.7 719.47 715.90 305.1 696.8 272.2 Office Visit 11/14/2012 4:30p [facility] Champ Alexander M.D. 34189 V43.3 286.7 719.47 715.90 305.1 696.8 Office Visit 10/15/2012 4:15p [facility] Champ Alexander M.D. 13602 V43.3 286.7 719.47 715.90 305.1 696.8 Office Visit 09/05/2012 3:45p [facility] Champ Alexander M.D. 37166 696.8 V43.3 286.7 272.2 719.47 715.90 305.1 Office Visit 07/02/2012 4:00p [facility] Champ Alexander M.D. 13093 V43.3 286.7 272.2 414.00 719.47 715.90 305.1 Office Visit 06/27/2010 11:15a [facility] Champ Alexander M.D. 34576 578.9 272.2 789.07 786.59 Plan of Care 05/01/2018 - Champ Alexander M.D.I25.10 Athscl heart disease of [place] coronary artery w/o ang pctrsComments:F/U WITH CARDIOLOGY CONTINUE WITH RX AND F /U LAB SMOKING [id number] Cardiomyopathy, unspecifiedComments:STABLE AND ASYMPTOMATIC F/U WITH CARDIOLOGY DIET REVIEWED WT LOSSF/U LAB SMOKING QAJDTFOWRF56.2 Presence of prosthetic heart valveComments:CHECK PT/INR CONTINUE COUMADINCOUNCELLING ON COUMADIN CAREF41.9 Anxiety disorder, unspecifiedComments: COUNCELLING AND REASSURANCE RELAXATION TECHNIQUES DISCUSSEDCOUNSELED RE: STRESSORS IN LIFE AVOID ALLENERGY/HIGH CAFFEINE DRINKS DUR QPFLINOF67.572 Pain in left ankle and joints of left footComments:EXERCISE/HEAT/MESSAGETYLENOL OR MOTRIN PRNACE WRAP PRN USE SHOES INSERTS/ CUSHION DUR XEVMLPMN95.2 Mixed hyperlipidemiaComments:DIET REVIEWED CONTINUE DIETWT LOSSF/U LAB FBWI49.9 Cardiac arrhythmia, unspecifiedComments:F/U WITH VQAMQNTOGXA24.9 Hypothyroidism , unspecifiedComments:STABLE OFF RX F/U TSH/ FT4M15.9 Polyosteoarthritis, unspecifiedComments:EXERCISE/HEAT/MESSAGETYLENOL OR MOTRIN PRNAVOID HEAVY LIFTINGWT LOSS DUR SQVHHLXJ05.810 Presence of automatic (implantable) cardiac defibrillatorComments:F/U WITH CARDIOLOGY FOR REGULAR XXTUOQ22.9 Allergic rhinitis, unspecifiedComments:INCREASE PO FLUID USE ANTIHISTAMINE PRN SECOND HAND SMOKING AVOIDANCE SMOKING GODXUTLNUI46.9 Psoriasis, unspecifiedComments: SKIN CARE INSTRUCTIONS LOTION OR BABY OIL 2-3 APPLICATION PER DAYUSE MOISTURIZING SOAPAVOID PROLONGED WATER EXPOSUREAVOID USING HOT WATER IN TRTPFPM16.1 Tinea unguiumComments:NAIL CARE INSTRUCTIONSTEACHING ABOUT DISEASE AND TREATMENT LNFCXDOV21.7 Left bundle-branch block, unspecifiedComments:STABLE/ OBSERVE F/U WITH HMRKGGDXSWU24.6 Mixed conductive and sensorineural hearing loss , bilateralComments:OBSERVE F/U WITH ENT PRN SMOKING SZFHIZWOTW22.9 Vitamin D deficiency, unspecifiedComments:INCREASE EXPOSURE TO SUNREVIEW OF DIETM54.5 Low back painComments:EXERCISE/HEAT /MESSAGEAVOID HEAVY LIFTING WT LOSSTYLENOL OR MOTRIN PRN DUR XKKOMXYD11.17 Radiculopathy, lumbosacral regionComments: EXERCISE/HEAT /MESSAGE AVOID HEAVY LIFTING WT LOSS TYLENOL OR MOTRIN PRN DUR DSPRRSYX05.605 Pain in left legComments:TYLENOL OR MOTRIN PRN EXERCISE/HEAT/ COOWQDCJ54.9 Unspecified hemorrhoidsComments:AVOID CONSTIPATOIN INCREASE FIBER IN DIETLAXATIVE PRNLUBRICATE ANAL AREA WITH LOTION PRN FOR NEBFROVV12.00 Insomnia, unspecifiedComments:COUNCELLING AND REASSURANCE RELAXATION TECHNIQUES DISCUSSED COUNSELED RE: STRESSORS IN LIFE TYLENOLPM OR MOTRIN PM PRN DUR CLJFZEEA41.10 Alcohol abuse, uncomplicatedComments:ETOH ABSTINENCECOUNCELLING AND QFZPRVMETVYR84.891 custodial (current) use of opiate analgesicComments: REVIEWED MEDICATIONS AND DIRECTIONS WITH PATIENT DUR JYNBNQJI45.02 Shortness of breathComments:INCREASE PO FLUIDRESTSMOKING PJYOTPXYSI38.9 Chest pain, unspecifiedComments:OBSERVE AND CGXKBSGBH77.210 Nicotine dependence, cigarettes , uncomplicatedComments:SMOKING CESSATION COUNCELLING
[2018-05-18 15:33] VITALS: BP 91/66
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
== END 2018-05-18 15:58 | disposition short-term general hospital (02) ==
LOC: UCCORT 15:11
DX: S91.002A Unspecified open wound, left ankle, initial encounter (principal); X58.XXXA Exposure to other specified factors, initial encounter; Y93.9 Activity, unspecified; Y92.9 Unspecified place or not applicable; Z95.2 Presence of prosthetic heart valve; Z95.811 Presence of heart assist device; F17.210 Nicotine dependence, cigarettes, uncomplicated; Z86.711 Personal history of pulmonary embolism; F41.9 Anxiety disorder, unspecified
CPT/HCPCS: 99212; G0463

== ENCOUNTER 2018-08-12 08:40 | Emergency (ER) | payer OTHER ==
[2018-08-12] MEDS ORDERED: ceFAZolin 2 GM in NS PREMIX(*) 2 GM/100 ML BAG IVPB ONE (09:03)
[2018-08-12] MEDS ORDERED: Morphine VIAL* 4 MG/ML VIAL (1 ml vial) IV ONE (09:18)
[2018-08-12 09:23] LABS: Hematocrit 42 % (42-52); Hemoglobin 14.6 g/dl (14.0-18.0); Mean Corpuscular HGB Conc 35 g/dl (31-36); Mean Corpuscular Hemoglobin 35 pg (27-31); Mean Corpuscular Volume 99 fL (80-94); Mean Platelet Volume 7.7 fL (7.4-10.4); Platelet Count 296 10^3/ul (150-450); Red Blood Count 4.24 10^6/ul (4.00-5.40); Red Cell Distribution Width 15 % (10.5-15); White Blood Count 10.4 10^3/ul (3.5-10.8)
[2018-08-12 09:38] LABS: EGFR Non-African American 118.2 (>60)
[2018-08-12] MEDS ORDERED: ceFAZolin* 2 GM* ONE DOSE (Duplex) IVPB (10:00)
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
[2018-08-12 11:09] VITALS: BP 129/84
[2018-08-12 11:16] LABS: ABS Basophils 0.1 10^3/ul (0-0.2); ABS Eosinophils 0.1 10^3/ul (0-0.6); ABS Monocytes 1.8 10^3/ul (0-0.8); ABS Neutrophils 7.5 10^3/ul (1.5-7.7); ABS Nucleated RBC 0 10^3/ul; Eosinophil % 0.9 % (0-6); Lymphocyte % 9.4 % (25-47); Nucleated Red Blood Cells % 0
--- NOTE | 2018-08-15 07:07 | PN ---
Progress Note - Progress Note Date of Service: 08/12/18 Note: Pt. seen in ED 08/12 and started on bactrim for wound. Wound cultured obtained and is growing staphy aureus susceptible to bactrim. No change in treatment needed at this time.
== END 2018-08-12 11:10 | disposition home or self-care (01) ==
LOC: ED 08:40
DX: L02.416 Cutaneous abscess of left lower limb (principal); Z79.01 Long term (current) use of anticoagulants; F17.210 Nicotine dependence, cigarettes, uncomplicated; Z95.2 Presence of prosthetic heart valve
CPT/HCPCS: 36415; 80053; 85025; 85652; 86140; 87040; 87070; 87077; 87186; 87205; 87640; 87641; 96374; 96375; 99283; J0690; J2270

== ENCOUNTER 2018-08-27 10:07 | Inpatient (IN) | payer OTHER ==
--- OUTSIDE RECORDS SUMMARY | 2018-08-27 10:14 | XMS REPORT ---
:1960 External Reference #:[id number] Author Organization [facility] Address [address] [place] [address] [place] [address] Phone [phone] Care Team Providers Name Role Phone Champ Alexander MD Primary Care Physician Unavailable Payers Type Date Identification Numbers Payment Provider Subscriber Commercial Policy Number: [id number] Wilfrid Moran PayID: [id number] [address] [place] [address] Problems Description No Information Family History Date Family Member(s) Problem(s) Comments Father Heart Disease Father paternal grandfather-[place] Siblings brother(pepe) HTN,Heart brother (ariadna) double bipass. issues(quadrupal bipass),lyme in his sleep-had [place] disease Sister(collin)-cancer. 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 ETOH Use Occasionally consumes alcohol Smoking Heavy tobacco smoker (more than 10 cigarettes/day) Recreational Drug Use Denies Drug Use Daily Caffeine Consumes on average 4 cups of regular coffee per day Daily Caffeine consumes 12oz of chocolate per day Exercise Type/Frequency Does not exercise Allergies, Adverse Reactions, Alerts Date Description Reaction Status Severity Comments 03/05/2018 NKDA active 03/05/2018 Dark Green Vegtables active Medications Medication Date Status Form Strength Qnty SIG Indications Ordering Provider Lidocaine 00/ Active Patches 5% 1 patch Unknown 0000 transderm everyday for 12 hrs to right shoulder/hu merous Spironolactone 0000/ Active Tablets 25mg 1 by mouth Unknown 0000 every day at bedtme Simvastatin 00/00/ Active Tablets 20mg 1 by mouth Unknown 0000 every day Meloxicam 00/ Active Tablets 15mg 1 by mouth Unknown 0000 every day at bedtime Lamisil 00/ Active Tablet 250mg 1 tab by Unknown 0000 mouth twice daily Metoprolol / Active Tablets 50mg 1 by mouth Unknown Tartrate 0000 daily at bedtime Clopidogrel 00/ Active Tablets 75mg 1 by mouth Unknown Bisulfate 0000 every day at bedtime Warfarin Sodium 00/ Active Tablets 10mg 1 tab by Unknown 0000 mouth at bedtime. Zohydro ER 00/ Active 1 tab by Unknown 0000 mouth every 4 hrs as needed Medications Administered in Office Medication Date Status Form Strength Qnty SIG Indications Ordering Provider Celestone 3 mg Administered Injection Vincent Claire and 3mg Denise Childers MD Vital Signs Date Vital Result Comment 08/19/2018 Height 67 inches 5'7" Weight 165.00 lb Heart Rate 68 /min Respiratory Rate 16 /min Body Temperature 96.9 F Pain Level 10 BMI (Body Mass Index) 25.8 kg/m2 03/05/2018 Height 67 inches 5'7" Weight 162.00 lb Heart Rate 80 /min BP Systolic 118 mmHg BP Diastolic 86 mmHg Respiratory Rate 12 /min no respiratory difficulties Pain Level 8 BMI (Body Mass Index) 25.4 kg/m2 Results Description No Information Procedures Date CPT Code Description Status 03/05/2018 58952 Inject/Drain Joint/Bursa Major W/O US Completed Encounters Type Date Location Provider CPT E/M Dx Office Visit 05/31/2018 [place], [address] L97.328 8:00a [facility] Office Visit 03/05/2018 [place] [address] S43.421A 3:15p Of [employer] AT [place] Plan of Care 03/05/2018 - MARCELO Gutierrez43.421A Sprain of right rotator cuff capsule, initial encounterNew Therapy:Physical TherapyFollow up:Follow up: 3 -4weeks
[2018-08-27] MEDS ORDERED: Morphine INJ* 2 MG/ML 1 ML SYRINGE (TWO MG - NEW SYRINGE VERSION) IV PRN (10:26)
[2018-08-27] MEDS ORDERED: Acetaminophen TAB* 325 MG PO PRN (10:27)
[2018-08-27] MEDS ORDERED: Morphine VIAL* 4 MG/ML VIAL (1 ml vial) IV PRN (10:28)
[2018-08-27] MEDS ORDERED: Morphine VIAL* 4 MG/ML VIAL (1 ml vial) ONE (10:29)
[2018-08-27] MEDS ORDERED: PROCHLORPERAZINE INJ 5 MG/ML 2 ML VIAL IV PRN (10:40)
[2018-08-27] MEDS: NS 0.9% 1000 ML* 1,000 ML IV SCH (10:49)
[2018-08-27] MEDS ORDERED: Morphine INJ* 2 MG/ML 1 ML SYRINGE (TWO MG - NEW SYRINGE VERSION) IV ONE (10:50)
[2018-08-27 10:57] LABS: ABS Basophils 0.1 10^3/ul (0-0.2); ABS Eosinophils 0.2 10^3/ul (0-0.6); ABS Monocytes 1.3 10^3/ul (0-0.8); ABS Neutrophils 8.8 10^3/ul (1.5-7.7); ABS Nucleated RBC 0 10^3/ul; Eosinophil % 1.7 % (0-6); Hematocrit 36 % (42-52); Hemoglobin 12.1 g/dl (14.0-18.0); Lymphocyte % 8.6 % (25-47); Mean Corpuscular HGB Conc 34 g/dl (31-36); Mean Corpuscular Hemoglobin 33 pg (27-31); Mean Corpuscular Volume 97 fL (80-94); Mean Platelet Volume 7.2 fL (7.4-10.4); Nucleated Red Blood Cells % 0.1; Platelet Count 384 10^3/ul (150-450); Red Cell Distribution Width 14 % (10.5-15); White Blood Count 11.4 10^3/ul (3.5-10.8)
[2018-08-27] MEDS ORDERED: Morphine VIAL* 4 MG/ML VIAL (1 ml vial) IV ONE (11:00)
[2018-08-27 11:09] LABS: EGFR Non-African American 112.5 (>60)
[2018-08-27] MEDS ORDERED: ceFAZolin 2 GM in NS PREMIX(*) 2 GM/100 ML BAG IVPB SCH (12:00)
[2018-08-27 12:50] LABS: INR 7.77 (0.77-1.02)
[2018-08-27] MEDS: ceFAZolin* 2 GM* Q8H (Duplex) IVPB SCH ×2 (13:08→20:48)
[2018-08-27] MEDS: HYDROmorphone INJ1* 1 MG/ML SYRINGE IV SLOW PU PRN ×3 (14:52→23:08)
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
[2018-08-27] MEDS ORDERED: fentaNYL* 50 MCG/ML 2 ML VIAL (100 MCG VIAL) ONE (15:34)
--- NOTE | 2018-08-27 16:35 | ECHO ---
Patient: JENNIFER BROWNE [facility] Rec#: [id number] : 1960 Date: 08/27/2018 Age: 58y Weight: kg / NaN lbs Sex: M Room#: 332 Admit Date#: 08/27/2018 Type: Inpatient Referring: Edmond Loomis NP Reading: Timur Turner MD Nursing Program Chair: Nat Fabian RN RDCS CC: Champ Alexander MD Transthoracic Echocardiogram Indication: AVR, MVR, ankle osteomyelitis BP: 122/76 HR: 88 Rhythm: Paced Findings History: #23 [facility] mechanical AVR, #31 [facility] mechanical MVR, single vessel bypass of RCA, pacemaker/ICD, smoker, ankle osteomyelitis. Technical Comments: The study is technically limited due to the patient's smoking history. Left Ventricle: The left ventricular chamber size is normal. Mild to moderate concentric left ventricular hypertrophy is observed. There is global hypokinesis of the left ventricle with minor regional variation. There is moderately decreased left ventricular systolic function. The estimated ejection fraction is 30-35%. Ventricular septal wall motion has a post-operative appearance. There is abnormal ventricular septal wall motion consistent with right ventricular pacemaker. Abnormal left ventricular diastolic function is observed. Left Atrium: The left atrium is mildly dilated. Right Ventricle: The right ventricular cavity size is normal. The right ventricular global systolic function is normal. A pacemaker wire is visualized in the right ventricle. Right Atrium: The right atrial cavity size is normal. A pacemaker wire is visualized in the right atrium. Aortic Valve: The aortic valve structure is not well visualized. There is trace to mild aortic regurgitation. The mean gradient of the aortic valve is 22.1 mmHg. The peak instantaneous gradient of the aortic valve is 40.6 mmHg. The aortic valve area, by peak velocities, is calculated at 2 cm2. The aortic valve area, by VTI's, is calculated at 1.9 cm2. A mechanical prosthetic aortic valve is present. The mechanical aortic valve appears well seated with normal function. Mitral Valve: The mitral valve structure is not well visualized. A mechanical prosthetic mitral valve is present. The mechanical mitral valve appears well seated with normal function. Tricuspid Valve: The tricuspid valve leaflets are normal. There is moderate tricuspid regurgitation. There is evidence of mild to moderate pulmonary hypertension. There is no tricuspid stenosis. Pulmonic Valve: The pulmonic valve structure is not well visualized. There is mild to moderate pulmonic regurgitation. There is no pulmonic stenosis. Pericardium: There is no significant pericardial effusion. Aorta: The ascending aorta is not well visualized. There is no dilatation of the aortic arch. There is no dilation of the aortic root. Pulmonary Artery: The main pulmonary artery is not well visualized. Venous: The inferior vena cava is dilated. There is an approximate 50% respiratory change in the inferior vena cava dimension. Conclusions There is global hypokinesis of the left ventricle with minor regional variation. There is moderately decreased left ventricular systolic function. There is abnormal ventricular septal wall motion consistent with right ventricular pacemaker. A pacemaker wire is visualized in the right ventricle. A mechanical prosthetic aortic valve is present. The mechanical aortic valve appears well seated with normal function. There is trace to mild aortic regurgitation. A mechanical prosthetic mitral valve is present. The mechanical mitral valve appears well seated with normal function. There is moderate tricuspid regurgitation. There is evidence of mild to moderate pulmonary hypertension. There is no significant pericardial effusion. Compared to stusy of 04/23/08, there is little change Study quality does not allow for exclution of endocarditis Measurements Name Value Normal Range RVDdMajor (2D) 3.7 cm (2.2 - 4.4) RAd ISD 4CH 4.3 cm (3.4 - 4.9) RA (A4C)W 4.5 cm (2.9 - 4.6) IVSd (2D) 1.4 cm (0.6 - 1) LVPWd (2D) 1.2 cm (0.6 - 1) IVS:LVPW ratio (2D) 1.21 ratio - LVIDd (2D) 4.6 cm (3.6 - 5.4) LVIDs (2D) 3.9 cm - LV FS (2D) 15 % (25 - 45) Aortic Annulus 1.9 cm (1.4 - 2.6) Ao root diameter (2D) 2.8 cm (2.1 - 3.5) Aortic arch 2.9 cm (1.8 - 3.4) LA dimension (AP) 2D 3.5 cm (2.3 - 3.8) LAd ISD 4CH 4.8 cm (2.9 - 5.3) LA ISD 4CH W 5 cm (2.5 - 4.5) Name Value Normal Range LV mass (2D) 233.22 g - Name Value Normal Range MV E-wave Vmax 2.5 m/sec - MV deceleration time 161 msec - MV A-wave Vmax 1 m/sec - MV E:A ratio 2.4 ratio - LV septal e' Vmax 0.09 m/sec - LV lateral e' Vmax 0.17 m/sec - LV E:e' septal ratio 27.8 ratio - LV E:e' lateral ratio 14.7 ratio - Name Value Normal Range AV Vmax 3.2 m/sec - AV VTI 56.7 cm - AV peak gradient 40.6 mmHg - AV mean gradient 22.1 mmHg - LVOT diameter 2 cm - LVOT Vmax 2 m/sec - LVOT VTI 34.1 cm - LVOT peak gradient 16.4 mmHg - LVOT mean gradient 10 mmHg - DOI (VTI) 0.6 ratio - DOI (Vmax) 0.62 ratio - SV LVOT 107 ml - CO LVOT 9.4 l/min - RENEA (continuity Vmax) 2 cm2 - RENEA (continuity VTI) 1.9 cm2 - VALERIY Vmax 0.41 m/sec - Name Value Normal Range MV Vmax 2.4 m/sec - MV VTI 37.6 cm - MV peak gradient 23 mmHg - MV mean gradient 9.5 mmHg - MV PHT 69 msec - MVA (PHT) 3.2 cm2 - MVA (continuity VTI) 2.9 cm2 - Name Value Normal Range TR Vmax 2.7 m/sec - TR peak gradient 2 mmHg - RAP 15 mmHg - RVSP 4 mmHg - IVC diameter 2.2 cm - Name Value Normal Range PV Vmax 0.85 m/sec -
[2018-08-27] MEDS ORDERED: Atorvastatin* 10 MG TAB PO SCH (17:00)
[2018-08-27] MEDS ORDERED: oxyCODONE/Acetamin 5/325 MG* TAB PO PRN (17:39)
[2018-08-27] MEDS ORDERED: diPHENhydraMINE PO* 50 MG PO PRN ×2 (19:34→20:52)
[2018-08-27] MEDS: Clopidogrel TAB* 75 MG PO SCH (20:51)
[2018-08-27] MEDS: Metoprolol Succinate XL TAB* 50 MG PO SCH (20:53)
[2018-08-27] MEDS: oxyCODONE/Acetamin 5/325 MG* TAB PO PRN (21:21)
[2018-08-27] MEDS: Atorvastatin* 10 MG TAB PO SCH (21:21)
[2018-08-28] MEDS: oxyCODONE/Acetamin 5/325 MG* TAB PO PRN ×5 (01:07→20:10)
[2018-08-28] MEDS: NS 0.9% 1000 ML* 1,000 ML IV SCH ×2 (02:28→18:06)
[2018-08-28] MEDS: HYDROmorphone INJ1* 1 MG/ML SYRINGE IV SLOW PU PRN ×5 (03:07→23:09)
[2018-08-28] MEDS: ceFAZolin* 2 GM* Q8H (Duplex) IVPB SCH ×3 (05:01→21:43)
--- NOTE | 2018-08-28 06:13 | PN ---
Progress Note - Progress Note Date of Service: 08/28/18 SOAP: Subjective: []Patient seen and examined at bedside. His left ankle feels much better today, though still moderately painful and too painful to bear weight. VSS overnight, Tmax 100.5 since admission Objective: []General: Well appearing, NAD LLE: Left lateral ankle edema is reduced from yesterday, mild erythema and moderate tenderness over the lateral malleolus without proximal streaking. DP2+ , sensation intact distally. Assessment: []Left ankle infection Plan: []WBAT Continue IV abx 3 phase bone scan ordered Vital Signs Temp 98.1 F 08/28/18 07:39 Pulse 70 08/28/18 07:39 Resp 18 08/28/18 14:01 BP 100/58 08/28/18 07:39 Pulse Ox 96 08/28/18 07:39 Intake & Output 08/27/18 08/28/18 08/28/18 18:59 06:59 18:59 Intake Total 0 1208 265 Output Total 500 675 600 Balance -500 533 -335 Weight 164 lb Intake: IV Fluids 1090 ABX - CEFAZOLIN 110 NS (0.9%) 980 IVPB 55 ABX - CEFAZOLIN 55 Oral 0 118 210 Output: Urine 500 675 600 Laboratory Last Values WBC 11.0 10^3/ul (3.5-10.8) H 08/28/18 06:35 RBC 3.58 10^6/ul (4.00-5.40) L 08/28/18 06:35 Hgb 12.0 g/dl (14.0-18.0) L 08/28/18 06:35 Hct 35 % (42-52) L 08/28/18 06:35 MCV 97 fL (80-94) H 08/28/18 06:35 MCH 33 pg (27-31) H 08/28/18 06:35 MCHC 34 g/dl (31-36) 08/28/18 06:35 RDW 15 % (10.5-15) 08/28/18 06:35 Plt Count 326 10^3/ul (150-450) 08/28/18 06:35 MPV 7.4 fL (7.4-10.4) 08/28/18 06:35 Neut % (Auto) 76.5 % (38-83) 08/28/18 06:35 Lymph % (Auto) 6.6 % (25-47) L 08/28/18 06:35 Rabun % (Auto) 13.9 % (0-7) H 08/28/18 06:35 Eos % (Auto) 2.5 % (0-6) 08/28/18 06:35 Baso % (Auto) 0.5 % (0-2) 08/28/18 06:35 Absolute Neuts (auto) 8.4 10^3/ul (1.5-7.7) H 08/28/18 06:35 Absolute Lymphs (auto) 0.7 10^3/ul (1.0-4.8) L 08/28/18 06:35 Absolute Monos (auto) 1.5 10^3/ul (0-0.8) H 08/28/18 06:35 Absolute Eos (auto) 0.3 10^3/ul (0-0.6) 08/28/18 06:35 Absolute Basos (auto) 0.1 10^3/ul (0-0.2) 08/28/18 06:35 Absolute Nucleated RBC 0 10^3/ul 08/28/18 06:35 Nucleated RBC % 0 08/28/18 06:35 ESR 67 mm/Hr (0-20) H 08/28/18 06:35 INR (Anticoag Therapy) 4.32 (0.77-1.02) H 08/28/18 06:35 Sodium 134 mmol/L (135-145) L 08/28/18 06:35 Potassium 3.6 mmol/L (3.5-5.0) 08/28/18 06:35 Chloride 101 mmol/L (101-111) 08/28/18 06:35 Carbon Dioxide 28 mmol/L (22-32) 08/28/18 06:35 Anion Gap 5 mmol/L (2-11) 08/28/18 06:35 BUN 9 mg/dL (6-24) 08/28/18 06:35 Creatinine 0.62 mg/dL (0.67-1.17) L 08/28/18 06:35 Est GFR ( Amer) 161.8 (>60) 08/28/18 06:35 Est GFR (Non-Af Amer) 133.7 (>60) 08/28/18 06:35 BUN/Creatinine Ratio 14.5 (8-20) 08/28/18 06:35 Glucose 120 mg/dL (70-100) H 08/28/18 06:35 Calcium 9.1 mg/dL (8.6-10.3) 08/28/18 06:35 Total Bilirubin 0.40 mg/dL (0.2-1.0) 08/27/18 10:38 AST 23 U/L (13-39) 08/27/18 10:38 ALT 14 U/L (7-52) 08/27/18 10:38 Alkaline Phosphatase 45 U/L (34-104) 08/27/18 10:38 C-Reactive Protein 45.39 mg/L (<8.01) H 08/28/18 06:35 Total Protein 7.5 g/dL (6.4-8.9) 08/27/18 10:38 Albumin 3.8 g/dL (3.2-5.2) 08/27/18 10:38 Globulin 3.7 g/dL (2-4) 08/27/18 10:38 Albumin/Globulin Ratio 1.0 (1-3) 08/27/18 10:38 Fluid Source Synovial fluid 08/27/18 13:33 Fluid Volume 3 mL 08/27/18 13:33 Fluid Color Red 08/27/18 13:33 Fluid Appearance Bloody 08/27/18 13:33 Fluid WBC 36322 /mcL (0-415850) 08/27/18 13:33 Fluid RBC 59957 /mcL 08/27/18 13:33 Fluid Tot Cell Count 100 08/27/18 13:33 Fluid Neutrophils 81 % 08/27/18 13:33 Fluid Lymphocytes 3 % 08/27/18 13:33 Fluid Monocytes 15 % 08/27/18 13:33 Fluid Eosinophils 1 % 08/27/18 13:33 Blood Type A Positive 08/27/18 10:38 Antibody Screen Positive 08/27/18 10:38 Antibody Identification Anti-c 08/27/18 10:38 Direct Antiglob Test Negative 08/27/18 10:38
[2018-08-28 07:05] LABS: ABS Basophils 0.1 10^3/ul (0-0.2); ABS Eosinophils 0.3 10^3/ul (0-0.6); ABS Lymphocytes 0.7 10^3/ul (1.0-4.8); ABS Monocytes 1.5 10^3/ul (0-0.8); ABS Neutrophils 8.4 10^3/ul (1.5-7.7); ABS Nucleated RBC 0 10^3/ul; Eosinophil % 2.5 % (0-6); Hematocrit 35 % (42-52); Lymphocyte % 6.6 % (25-47); Mean Corpuscular HGB Conc 34 g/dl (31-36); Mean Corpuscular Hemoglobin 33 pg (27-31); Mean Corpuscular Volume 97 fL (80-94); Mean Platelet Volume 7.4 fL (7.4-10.4); Nucleated Red Blood Cells % 0; Platelet Count 326 10^3/ul (150-450); Red Blood Count 3.58 10^6/ul (4.00-5.40); Red Cell Distribution Width 15 % (10.5-15)
[2018-08-28 07:17] LABS: INR 4.32 (0.77-1.02)
[2018-08-28 07:20] LABS: EGFR Non-African American 133.7 (>60)
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
[2018-08-28] MEDS ORDERED: oxyCODONE/Acetamin 5/325 MG* TAB PO ONE (12:03)
[2018-08-28] MEDS: Metoprolol Succinate XL TAB* 50 MG PO SCH (20:11)
[2018-08-28] MEDS: Atorvastatin* 10 MG TAB PO SCH (20:11)
[2018-08-28] MEDS: Clopidogrel TAB* 75 MG PO SCH (20:11)
[2018-08-28] MEDS: oxyCODONE SR TAB(*) 10 MG TAB.SR PO SCH (21:43)
[2018-08-29] MEDS: oxyCODONE/Acetamin 5/325 MG* TAB PO PRN ×6 (01:27→22:09)
[2018-08-29] MEDS: HYDROmorphone INJ1* 1 MG/ML SYRINGE IV SLOW PU PRN ×5 (03:13→23:23)
[2018-08-29] MEDS: ceFAZolin* 2 GM* Q8H (Duplex) IVPB SCH ×3 (04:30→20:56)
[2018-08-29 06:31] LABS: INR 2.61 (0.77-1.02)
[2018-08-29] MEDS: oxyCODONE SR TAB(*) 10 MG TAB.SR PO SCH (09:00)
--- NOTE | 2018-08-29 11:07 | PN ---
Progress Note - Progress Note Date of Service: 08/29/18 SOAP: Subjective: Patient seen and examined at bedside. His left ankle continues to have moderate to severe pain, and still moderately painful to bear weight. VSS overnight, Tmax 100.5 since admission. He denies any chest pain, SOB, chills , night sweats. Objective: []General: Well appearing, NAD LLE: Left lateral ankle edema is reduced from yesterday, mild erythema and moderate tenderness over the lateral malleolus without proximal streaking. DP2+ , sensation intact distally. Vital Signs Temp 97.9 F 08/29/18 07:20 Pulse 70 08/29/18 07:20 Resp 18 08/29/18 09:40 BP 127/82 08/29/18 07:20 Pulse Ox 98 08/29/18 07:20 Intake & Output 08/28/18 08/29/18 08/29/18 18:59 06:59 18:59 Intake Total 1295 1190 230 Output Total 600 900 250 Balance 695 290 -20 Intake: IV Fluids 975 NS (0.9%) 975 IVPB 110 50 ABX - CEFAZOLIN 110 50 Oral 210 1140 230 Output: Urine 600 900 250 Other: # Bowel Movements 0 Assessment: []Left ankle infection Plan: []WBAT Continue IV abx 3 phase bone scan showed osteomyelitis Dr. Franco will see pt at some point to further discuss the possibility of debridement tomorrow NPO after midnight
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
[2018-08-29 14:30] LABS: INR 2.15 (0.77-1.02)
[2018-08-29] MEDS: Heparin VIAL(*) 5000 UNITS/ML VIAL (FIVE THOUSAND) IV PRN (16:22)
[2018-08-29] MEDS: Heparin DRIP 25,000 UNITS(*) 25,000 UNITS/500 ML BAG IV SCH (16:23)
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
[2018-08-29] MEDS: Atorvastatin* 10 MG TAB PO SCH (20:48)
[2018-08-29] MEDS: oxyCODONE SR TAB(*) 20 MG TAB.SR PO SCH (20:48)
[2018-08-29] MEDS: Metoprolol Succinate XL TAB* 50 MG PO SCH (20:48)
[2018-08-29] MEDS: Clopidogrel TAB* 75 MG PO SCH (20:48)
[2018-08-30] MEDS: oxyCODONE/Acetamin 5/325 MG* TAB PO PRN ×2 (02:23→06:24)
[2018-08-30] MEDS: ceFAZolin* 2 GM* Q8H (Duplex) IVPB SCH ×4 (04:00→20:34)
[2018-08-30] MEDS: HYDROmorphone INJ1* 1 MG/ML SYRINGE IV SLOW PU PRN ×3 (04:01→15:56)
[2018-08-30 06:21] LABS: INR 1.43 (0.77-1.02)
[2018-08-30 06:26] LABS: ABS Basophils 0.1 10^3/ul (0-0.2); ABS Eosinophils 0.4 10^3/ul (0-0.6); ABS Lymphocytes 1.2 10^3/ul (1.0-4.8); ABS Monocytes 1.2 10^3/ul (0-0.8); ABS Neutrophils 5.3 10^3/ul (1.5-7.7); ABS Nucleated RBC 0 10^3/ul; Eosinophil % 4.9 % (0-6); Hematocrit 35 % (42-52); Hemoglobin 12.2 g/dl (14.0-18.0); Lymphocyte % 14.9 % (25-47); Mean Corpuscular HGB Conc 35 g/dl (31-36); Mean Corpuscular Hemoglobin 34 pg (27-31); Mean Corpuscular Volume 98 fL (80-94); Mean Platelet Volume 7.7 fL (7.4-10.4); Nucleated Red Blood Cells % 0; Platelet Count 341 10^3/ul (150-450); Red Blood Count 3.58 10^6/ul (4.00-5.40); Red Cell Distribution Width 15 % (10.5-15); White Blood Count 8.2 10^3/ul (3.5-10.8)
[2018-08-30] MEDS: Heparin VIAL(*) 5000 UNITS/ML VIAL (FIVE THOUSAND) IV PRN (06:54)
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
[2018-08-30] MEDS: oxyCODONE SR TAB(*) 20 MG TAB.SR PO SCH ×3 (09:05→22:07)
[2018-08-30] MEDS ORDERED: Morphine PCA ADULT* 5 MG/ML 30 ML ONE (09:33)
[2018-08-30] MEDS ORDERED: Morphine VIAL* 10 MG/ML 1 ML VIAL ONE (09:35)
[2018-08-30] MEDS ORDERED: Buffered Lidocaine 0.9% SYRIN* 5 ML/SYR SYRINGE INTRADERM ONE (09:45)
[2018-08-30] MEDS ORDERED: Dexamethasone TAB* 4 MG PO ONE (09:45)
[2018-08-30] MEDS ORDERED: Ondansetron INJ* 2 MG/ML VIAL ONE (09:45)
[2018-08-30] MEDS ORDERED: Famotidine IV* 10 MG/ML 2 ML (20 mg) IV ONE (09:45)
[2018-08-30] MEDS ORDERED: oxyCODONE/Acetamin 5/325 MG* TAB PO PRN (09:47)
[2018-08-30] MEDS ORDERED: Naloxone* 0.4 MG/ML 1 ML VIAL IV PRN ×2 (09:47→14:51)
[2018-08-30] MEDS ORDERED: HYDROmorphone INJ1* 1 MG/ML SYRINGE IV PRN ×2 (09:47→14:51)
[2018-08-30] MEDS ORDERED: fentaNYL* 50 MCG/ML 2 ML VIAL (100 MCG VIAL) IV PRN (09:47)
[2018-08-30] MEDS ORDERED: DiMENhydriNATE IV* 50 MG/ML VIAL IV PUSH PRN (09:47)
[2018-08-30] MEDS ORDERED: fentaNYL* 50 MCG/ML 2 ML VIAL (100 MCG VIAL) ONE ×4 (12:46→15:20)
[2018-08-30] MEDS ORDERED: Midazolam* 1 MG/ML 5 ML VIAL (5 MG) ONE (12:46)
[2018-08-30] MEDS ORDERED: KETAMINE HCL* 50 MG/ML 10 ML VIAL ONE (12:46)
[2018-08-30] MEDS ORDERED: Bupivacaine 0.5% SDV PF* 30ML VIAL ONE (13:04)
[2018-08-30] MEDS ORDERED: Lidocaine 2% PF * 5 ML VIAL ONE ×2 (13:04→14:00)
[2018-08-30] MEDS ORDERED: Propofol* 10 MG/ML 20 ML BTL IV PUSH ONE (13:59)
[2018-08-30] MEDS ORDERED: HYDROmorphone INJ1* 1 MG/ML SYRINGE ONE ×3 (14:00→15:24)
[2018-08-30] MEDS ORDERED: Metoprolol Tartrate IV* 1 MG/ML 5 ML VIAL ONE (14:00)
[2018-08-30] MEDS ORDERED: Phenylephrine INJ* 10 MG/ML 1 ML VIAL (10 MG) ONE (14:00)
[2018-08-30] MEDS ORDERED: Scopolamine 1.5 mg* PATCH TRANSDERM PRN (14:51)
[2018-08-30] MEDS ORDERED: Labetalol IV* 5 MG/ML 20 ML VIAL IV PUSH ONE (14:53)
[2018-08-30] MEDS ORDERED: Labetalol IV* 5 MG/ML 20 ML VIAL ONE (14:55)
[2018-08-30] MEDS: fentaNYL* 50 MCG/ML 2 ML VIAL (100 MCG VIAL) IV PRN ×3 (14:58→15:20)
[2018-08-30] MEDS ORDERED: HYDROmorphone INJ1* 1 MG/ML SYRINGE IV SLOW PU ONE ×2 (16:49→18:00)
[2018-08-30] MEDS ORDERED: Naloxone* 0.4 MG/ML 1 ML VIAL IV PUSH PRN (17:06)
[2018-08-30] MEDS ORDERED: HYDROmorphone INJ* 2 MG/ML CARPUJECT SYRINGE IV SLOW PU ONE (17:15)
[2018-08-30] MEDS: Ketorolac INJ* 30 MG/ML 1 ML VIAL IV PRN (17:49)
[2018-08-30] MEDS: HYDROmorphone PCA* 20 MG/20 ML PCA.SYRING PCA SCH (17:57)
[2018-08-30] MEDS: Ondansetron INJ* 2 MG/ML VIAL IV PRN (19:52)
[2018-08-30] MEDS: Metoprolol Succinate XL TAB* 50 MG PO SCH (22:06)
[2018-08-30] MEDS: Atorvastatin* 10 MG TAB PO SCH (22:06)
[2018-08-30] MEDS: Clopidogrel TAB* 75 MG PO SCH (22:06)
--- NOTE | 2018-08-30 23:06 | OP ---
OPERATIVE REPORT: DATE OF OPERATION: 08/30/18 DATE OF : 62 SURGEON: Bhavin Franco MD ORIENTATION AND MOBILITY INSTRUCTOR: ADA Rodriguez PRE-OP DIAGNOSIS: Chronic osteomyelitis, left distal tibia, left talus body. POST-OP DIAGNOSIS: Chronic osteomyelitis, left distal tibia, left talus body. OPERATIVE PROCEDURE: Open debridement both areas of chronic osteomyelitis, bone sampling, and deep c ultures. DESCRIPTION OF PROCEDURE: The patient was taken to the operating room where we made an 8 cm longitud inal incision over a previous scar at the medial hindfoot. Full-thickness flap was raised off the ant erior and posterior aspect of the tibia and talus. Using the CT scan as a guide, I penetrated the la rge lesions in the distal tibia and talus partially with a 0.5-inch curved osteotome, partially with a 5-mm power papi. There was granulomatous cheesy substance located in both cystic areas, which were sent for culture directly and multiple bone specimens for pathology. After 6 L of pulsatile lavage, we closed the wound then with deep 2-0 Vicryl sutures and interrupted Prolene for the skin and a com pression dressing plaster splint. [id number]/[facility] #: [id number]
[2018-08-31] MEDS: Heparin DRIP 25,000 UNITS(*) 25,000 UNITS/500 ML BAG IV SCH ×2 (01:56→23:53)
[2018-08-31] MEDS: ceFAZolin* 2 GM* Q8H (Duplex) IVPB SCH ×3 (05:12→20:18)
[2018-08-31] MEDS: Ondansetron INJ* 2 MG/ML VIAL IV PRN (07:05)
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
[2018-08-31 08:19] LABS: Hematocrit 36 % (42-52); Hemoglobin 12.1 g/dl (14.0-18.0); Mean Corpuscular HGB Conc 34 g/dl (31-36); Mean Corpuscular Hemoglobin 34 pg (27-31); Mean Corpuscular Volume 98 fL (80-94); Mean Platelet Volume 7.4 fL (7.4-10.4); Platelet Count 353 10^3/ul (150-450); Red Cell Distribution Width 14 % (10.5-15); White Blood Count 9.7 10^3/ul (3.5-10.8)
[2018-08-31 08:23] LABS: ABS Basophils 0.1 10^3/ul (0-0.2); ABS Eosinophils 0.2 10^3/ul (0-0.6); ABS Lymphocytes 1.5 10^3/ul (1.0-4.8); ABS Monocytes 1.8 10^3/ul (0-0.8); ABS Neutrophils 6.1 10^3/ul (1.5-7.7); ABS Nucleated RBC 0 10^3/ul; Eosinophil % 1.9 % (0-6); Lymphocyte % 15.5 % (25-47); Nucleated Red Blood Cells % 0
[2018-08-31 08:34] LABS: EGFR Non-African American 141.6 (>60)
[2018-08-31] MEDS: oxyCODONE SR TAB(*) 20 MG TAB.SR PO SCH ×2 (09:13→21:22)
--- NOTE | 2018-08-31 10:05 | PN ---
Progress Note - Progress Note Date of Service: 08/31/18 SOAP: Subjective: [Pt seen this morning laying in bed. States that he is doing better. State that his pain is decreased since yesterday. He denies any chest pain, SOB, nausea, vomiting, fevers or chills. ] Objective: [General:A&Ox3, NAD MSK, LLE: dressing is c/d/i, able to wiggle exposed toes. Calf is soft and non tender. ] Vital Signs Temp 97.9 F 08/31/18 07:24 Pulse 76 08/31/18 07:40 Resp 18 08/31/18 09:13 BP 127/68 08/31/18 07:24 Pulse Ox 100 08/31/18 07:40 Intake & Output 08/30/18 08/31/18 08/31/18 18:59 06:59 18:59 Intake Total 890 1725 593 Output Total 840 550 800 Balance 50 1175 -207 Intake: IV Fluids 550 238 LR 550 NS (0.9%) 238 IVPB 127 ABX - CEFAZOLIN 127 Medicated IV 340 Heparin 340 Heparin 113 Oral 0 1360 480 Output: Urine 840 550 800 Assessment: [S/P left open debridement of both areas of chronic osteomyelitis with bone sampling and cultures ] Plan: [Continue non weight bearing of the left lower extremity Continue with current IV abx. Awaiting cultures to return Elyse following ]
[2018-08-31] MEDS ORDERED: HYDROmorphone INJ* 1 MG/ML CARPUJECT SYRINGE IV SLOW PU PRN (12:09)
[2018-08-31] MEDS: Atorvastatin* 10 MG TAB PO SCH (21:21)
[2018-08-31] MEDS: Metoprolol Succinate XL TAB* 50 MG PO SCH (21:21)
[2018-08-31] MEDS: HYDROmorphone PCA* 20 MG/20 ML PCA.SYRING PCA SCH (22:37)
[2018-09-01] MEDS: Heparin VIAL(*) 5000 UNITS/ML VIAL (FIVE THOUSAND) IV PRN ×2 (00:01→21:19)
[2018-09-01] MEDS: oxyCODONE/Acetamin 5/325 MG* TAB PO PRN ×2 (02:55→14:59)
[2018-09-01] MEDS: ceFAZolin* 2 GM* Q8H (Duplex) IVPB SCH ×3 (04:42→20:34)
[2018-09-01 06:12] LABS: ABS Basophils 0.1 10^3/ul (0-0.2); ABS Eosinophils 0.4 10^3/ul (0-0.6); ABS Lymphocytes 1.4 10^3/ul (1.0-4.8); ABS Monocytes 1.3 10^3/ul (0-0.8); ABS Neutrophils 5.1 10^3/ul (1.5-7.7); ABS Nucleated RBC 0 10^3/ul; Hematocrit 33 % (42-52); Hemoglobin 11.2 g/dl (14.0-18.0); Lymphocyte % 17.1 % (25-47); Mean Corpuscular HGB Conc 34 g/dl (31-36); Mean Corpuscular Hemoglobin 33 pg (27-31); Mean Corpuscular Volume 98 fL (80-94); Mean Platelet Volume 7.3 fL (7.4-10.4); Nucleated Red Blood Cells % 0; Platelet Count 314 10^3/ul (150-450); Red Blood Count 3.39 10^6/ul (4.00-5.40); Red Cell Distribution Width 14 % (10.5-15); White Blood Count 8.3 10^3/ul (3.5-10.8)
--- NOTE | 2018-09-01 09:02 | PN ---
Progress Note - Progress Note Date of Service: 09/01/18 SOAP: Subjective: [Pt seen this morning laying in bed. States that he is doing better. State that his pain is decreased since the day of surgery. He denies any chest pain, SOB, nausea, vomiting, fevers or chills. ] Objective: [General:A&Ox3, NAD MSK, LLE: dressing is c/d/i, able to wiggle exposed toes. Calf is soft and non tender. ] Vital Signs Temp 97.6 F 09/01/18 07:50 Pulse 75 09/01/18 07:50 Resp 16 09/01/18 07:50 BP 128/99 09/01/18 07:50 Pulse Ox 97 09/01/18 07:50 Intake & Output 08/31/18 09/01/18 09/01/18 18:59 06:59 18:59 Intake Total 1553 1370 742 Output Total 1650 1375 250 Balance -97 -5 492 Intake: Heparin 113 742 Oral 1440 1370 Output: Urine 1650 1375 250 Assessment: [S/P left open debridement of both areas of chronic osteomyelitis with bone sampling and cultures ] Plan: [Continue non weight bearing of the left lower extremity Continue with current IV abx. Awaiting cultures to return Elyse following ]
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
[2018-09-01] MEDS: oxyCODONE SR TAB(*) 20 MG TAB.SR PO SCH ×2 (09:42→20:32)
[2018-09-01] MEDS: Ketorolac INJ* 30 MG/ML 1 ML VIAL IV PRN ×2 (11:57→21:42)
[2018-09-01] MEDS: Heparin DRIP 25,000 UNITS(*) 25,000 UNITS/500 ML BAG IV SCH (15:05)
[2018-09-01] MEDS: HYDROmorphone INJ1* 1 MG/ML SYRINGE IV SLOW PU PRN ×2 (19:37→23:34)
--- NOTE | 2018-09-01 19:41 | PN ---
PROGRESS NOTE: DATE OF SERVICE: 09/01/18 Maycol is a couple of days out from the debridement of his left medial tibia and talus with a diagnosis of chronic osteomyelitis. His cultures are pending. Hopefully, we will identify an organism to facilitate treatment terminal press operator for this chronic osteomyelitis as he will need a second procedure once we have completed a course. Clinically, he is doing well , being afebrile. Pain is well managed at this point in time. I reviewed with him protected weightbearing precautions and the need for infectious disease guidance over the next day or 2 in terms of a postdischarge course of antibiotic. [id number]/[facility] #: [id number] SAIMA
[2018-09-01] MEDS: Metoprolol Succinate XL TAB* 50 MG PO SCH (20:32)
[2018-09-01] MEDS: Atorvastatin* 10 MG TAB PO SCH (20:32)
[2018-09-02] MEDS: oxyCODONE/Acetamin 5/325 MG* TAB PO PRN ×5 (02:11→21:03)
[2018-09-02] MEDS: ceFAZolin* 2 GM* Q8H (Duplex) IVPB SCH ×3 (03:37→20:23)
[2018-09-02] MEDS: HYDROmorphone INJ1* 1 MG/ML SYRINGE IV SLOW PU PRN ×4 (03:37→18:57)
[2018-09-02 03:48] LABS: ABS Basophils 0.1 10^3/ul (0-0.2); ABS Eosinophils 0.5 10^3/ul (0-0.6); ABS Lymphocytes 1.4 10^3/ul (1.0-4.8); ABS Monocytes 1.1 10^3/ul (0-0.8); ABS Neutrophils 3.4 10^3/ul (1.5-7.7); ABS Nucleated RBC 0 10^3/ul; Eosinophil % 7.8 % (0-6); Hematocrit 33 % (42-52); Hemoglobin 11.3 g/dl (14.0-18.0); Lymphocyte % 20.9 % (25-47); Mean Corpuscular HGB Conc 34 g/dl (31-36); Mean Corpuscular Hemoglobin 33 pg (27-31); Mean Corpuscular Volume 97 fL (80-94); Mean Platelet Volume 7.5 fL (7.4-10.4); Nucleated Red Blood Cells % 0; Platelet Count 332 10^3/ul (150-450); Red Blood Count 3.44 10^6/ul (4.00-5.40); Red Cell Distribution Width 14 % (10.5-15); White Blood Count 6.5 10^3/ul (3.5-10.8)
[2018-09-02 04:03] LABS: EGFR Non-African American 112.5 (>60)
[2018-09-02] MEDS: Heparin DRIP 25,000 UNITS(*) 25,000 UNITS/500 ML BAG IV SCH ×2 (06:53→21:59)
[2018-09-02] MEDS: oxyCODONE SR TAB(*) 20 MG TAB.SR PO SCH ×2 (08:29→21:03)
[2018-09-02] MEDS: Ketorolac INJ* 30 MG/ML 1 ML VIAL IV PRN (09:46)
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
[2018-09-02] MEDS ORDERED: Scopolamine PATCH Remove* 1 NOTE MISC PATCH OFF ONE (14:52)
--- NOTE | 2018-09-02 14:56 | PN ---
Progress Note - Progress Note Date of Service: 09/02/18 SOAP: Subjective: []Patient seen and examined at bedside. He feels well without fever or chills. LLE is nonpainful. Objective: []General: Well appearing, NAD LLE: splint CDI. Able to wiggle exposed toes, cap refill less than two seconds and sensation intact distally. No erythema proximally Assessment: [] PRE-OP DIAGNOSIS: Chronic osteomyelitis, left distal tibia, left talus body. OPERATIVE PROCEDURE: Open debridement both areas of chronic osteomyelitis, bone sampling, and deep cultures. Plan: [Continue non weight bearing of the left lower extremity Continue with current IV abx. Okay for DC from ortho standpoint, FU Dr Franco next week Dr. Pappas following. On ancef 2g IV Q8 hr Vital Signs Temp 98.1 F 09/02/18 07:15 Pulse 69 09/02/18 07:15 Resp 16 09/02/18 12:16 BP 97/57 09/02/18 07:15 Pulse Ox 100 09/02/18 08:38 Intake & Output 09/01/18 09/02/18 09/02/18 18:59 06:59 18:59 Intake Total 3482 1561 933 Output Total 900 1075 400 Balance 2582 486 533 Intake: IVPB 55 ABX - CEFAZOLIN 55 Medicated IV 965 Heparin 965 Heparin 742 1061 193 Oral 1720 500 740 Output: Urine 900 1075 400 Other: Estimated Stool Amount Medium Laboratory Last Values WBC 6.5 10^3/ul (3.5-10.8) 09/02/18 03:33 RBC 3.44 10^6/ul (4.00-5.40) L 09/02/18 03:33 Hgb 11.3 g/dl (14.0-18.0) L 09/02/18 03:33 Hct 33 % (42-52) L 09/02/18 03:33 MCV 97 fL (80-94) H 09/02/18 03:33 MCH 33 pg (27-31) H 09/02/18 03:33 MCHC 34 g/dl (31-36) 09/02/18 03:33 RDW 14 % (10.5-15) 09/02/18 03:33 Plt Count 332 10^3/ul (150-450) 09/02/18 03:33 MPV 7.5 fL (7.4-10.4) 09/02/18 03:33 Neut % (Auto) 53.0 % (38-83) 09/02/18 03:33 Lymph % (Auto) 20.9 % (25-47) L 09/02/18 03:33 [place] % (Auto) 16.9 % (0-7) H 09/02/18 03:33 Eos % (Auto) 7.8 % (0-6) H 09/02/18 03:33 Baso % (Auto) 1.4 % (0-2) 09/02/18 03:33 Absolute Neuts (auto) 3.4 10^3/ul (1.5-7.7) 09/02/18 03:33 Absolute Lymphs (auto) 1.4 10^3/ul (1.0-4.8) 09/02/18 03:33 Absolute Monos (auto) 1.1 10^3/ul (0-0.8) H 09/02/18 03:33 Absolute Eos (auto) 0.5 10^3/ul (0-0.6) 09/02/18 03:33 Absolute Basos (auto) 0.1 10^3/ul (0-0.2) 09/02/18 03:33 Absolute Nucleated RBC 0 10^3/ul 09/02/18 03:33 Nucleated RBC % 0 09/02/18 03:33 ESR 67 mm/Hr (0-20) H 08/28/18 06:35 INR (Anticoag Therapy) 1.43 (0.77-1.02) H 08/30/18 06:00 APTT 73.7 seconds (26.0-36.3) H 09/02/18 11:43 Sodium 134 mmol/L (135-145) L 08/28/18 06:35 Potassium 3.6 mmol/L (3.5-5.0) 08/28/18 06:35 Chloride 101 mmol/L (101-111) 08/28/18 06:35 Carbon Dioxide 28 mmol/L (22-32) 08/28/18 06:35 Anion Gap 5 mmol/L (2-11) 08/28/18 06:35 BUN 6 mg/dL (6-24) 09/02/18 03:33 Creatinine 0.72 mg/dL (0.67-1.17) 09/02/18 03:33 Est GFR ( Amer) 136.2 (>60) 09/02/18 03:33 Est GFR (Non-Af Amer) 112.5 (>60) 09/02/18 03:33 BUN/Creatinine Ratio 14.5 (8-20) 08/28/18 06:35 Glucose 120 mg/dL (70-100) H 08/28/18 06:35 Calcium 9.1 mg/dL (8.6-10.3) 08/28/18 06:35 Total Bilirubin 0.40 mg/dL (0.2-1.0) 08/27/18 10:38 AST 23 U/L (13-39) 08/27/18 10:38 ALT 14 U/L (7-52) 08/27/18 10:38 Alkaline Phosphatase 45 U/L (34-104) 08/27/18 10:38 C-Reactive Protein 45.39 mg/L (<8.01) H 08/28/18 06:35 Total Protein 7.5 g/dL (6.4-8.9) 08/27/18 10:38 Albumin 3.8 g/dL (3.2-5.2) 08/27/18 10:38 Globulin 3.7 g/dL (2-4) 08/27/18 10:38 Albumin/Globulin Ratio 1.0 (1-3) 08/27/18 10:38 Fluid Source Synovial 08/27/18 13:33 Fluid Volume 3 mL 08/27/18 13:33 Fluid Color Red 08/27/18 13:33 Fluid Appearance Bloody 08/27/18 13:33 Fluid WBC 02322 /mcL (0-766291) 08/27/18 13:33 Fluid RBC 57738 /mcL 08/27/18 13:33 Fluid Tot Cell Count 100 08/27/18 13:33 Fluid Neutrophils 81 % 08/27/18 13:33 Fluid Lymphocytes 3 % 08/27/18 13:33 Fluid Monocytes 15 % 08/27/18 13:33 Fluid Eosinophils 1 % 08/27/18 13:33 Fluid Cell Count Rvw By 08/27/18 13:33 Fluid Total Protein 5.7 g/dL 08/27/18 13:33 Blood Type A Positive 08/27/18 10:38 Antibody Screen Positive 08/27/18 10:38 Antibody Identification Anti-c 08/27/18 10:38 Direct Antiglob Test Negative 08/27/18 10:38
[2018-09-02] MEDS: Warfarin TAB(*) 10 MG PO SCH (16:39)
[2018-09-02] MEDS: Atorvastatin* 10 MG TAB PO SCH (21:02)
[2018-09-02] MEDS: Clopidogrel TAB* 75 MG PO SCH (21:03)
[2018-09-02] MEDS: Metoprolol Succinate XL TAB* 50 MG PO SCH (21:03)
[2018-09-03] MEDS: oxyCODONE/Acetamin 5/325 MG* TAB PO PRN ×6 (00:51→21:54)
[2018-09-03] MEDS: ceFAZolin* 2 GM* Q8H (Duplex) IVPB SCH ×3 (04:15→20:56)
[2018-09-03 05:41] LABS: ABS Basophils 0.1 10^3/ul (0-0.2); ABS Eosinophils 0.5 10^3/ul (0-0.6); ABS Lymphocytes 1.1 10^3/ul (1.0-4.8); ABS Monocytes 1.1 10^3/ul (0-0.8); ABS Neutrophils 2.9 10^3/ul (1.5-7.7); ABS Nucleated RBC 0 10^3/ul; Eosinophil % 8.2 %; Hematocrit 32 % (42-52); Hemoglobin 10.9 g/dl (14.0-18.0); Lymphocyte % 19.3 %; Mean Corpuscular HGB Conc 34 g/dl (31-36); Mean Corpuscular Hemoglobin 33 pg (27-31); Mean Corpuscular Volume 97 fL (80-94); Nucleated Red Blood Cells % 0.1; Platelet Count 351 10^3/ul (150-450); Red Blood Count 3.29 10^6/ul (4.00-5.40); Red Cell Distribution Width 14 % (10.5-15); White Blood Count 5.7 10^3/ul (3.5-10.8)
[2018-09-03 06:33] LABS: INR 1.02 (0.77-1.02)
[2018-09-03] MEDS: Heparin VIAL(*) 5000 UNITS/ML VIAL (FIVE THOUSAND) IV PRN (06:59)
--- NOTE | 2018-09-03 08:21 | PN ---
Progress Note - Progress Note Date of Service: 09/04/18 SOAP: Subjective: []Patient seen at bedside. Pain currently well managed but has time of 4-6 level pain. He is waiting for a PICC line and hopes that everything will be arranged so he can be discharged later today. He has been maintaining his NWB status on LLE. Objective: [] Vital Signs Temp 98.4 F 09/03/18 07:31 Pulse 68 09/03/18 07:31 Resp 16 09/03/18 07:36 BP 132/70 09/03/18 07:31 Pulse Ox 100 09/03/18 07:36 Intake & Output 09/02/18 09/03/18 09/03/18 18:59 06:59 18:59 Intake Total 2238 1989.8 Output Total 400 2700 325 Balance 1838 -710.2 -325 Intake: IVPB 100 ABX - CEFAZOLIN 100 Medicated IV 500 Heparin 500 Heparin 998 359.8 Oral 1240 1030 Output: Urine 400 2700 325 Other: # Bowel Movements 0 Laboratory Results - last 24 hr 09/02/18 09/02/18 09/02/18 11:43 17:46 23:36 WBC RBC Hgb Hct MCV MCH MCHC RDW Plt Count MPV Neut % (Auto) Lymph % (Auto) [place] % (Auto) Eos % (Auto) Baso % (Auto) Absolute Neuts (auto) Absolute Lymphs (auto) Absolute Monos (auto) Absolute Eos (auto) Absolute Basos (auto) Absolute Nucleated RBC Nucleated RBC % INR (Anticoag Therapy) APTT 73.7 H 63.9 H 58.0 H 09/03/18 09/03/18 05:23 05:23 WBC 5.7 RBC 3.29 L Hgb 10.9 L Hct 32 L MCV 97 H MCH 33 H MCHC 34 RDW 14 Plt Count 351 MPV 7.0 L Neut % (Auto) 51.0 Lymph % (Auto) 19.3 [place] % (Auto) 19.9 Eos % (Auto) 8.2 Baso % (Auto) 1.6 Absolute Neuts (auto) 2.9 Absolute Lymphs (auto) 1.1 Absolute Monos (auto) 1.1 H Absolute Eos (auto) 0.5 Absolute Basos (auto) 0.1 Absolute Nucleated RBC 0 Nucleated RBC % 0.1 INR (Anticoag Therapy) 1.02 APTT 48.9 H Microbiology 08/30/18 14:05 Wound Gram Stain - Final Wound Tissue Culture - Preliminary No Growth Day 3 Anaerobic Culture - Preliminary No Growth Day 3 08/30/18 14:05 Wound Gram Stain - Final Wound Tissue Culture - Preliminary Staphylococcus Aureus Anaerobic Culture - Preliminary No Growth Day 2 Skin and Soft Tissue MRSA/MSSA (PCR - Final Mrsa Negative S.aureus Positive 08/27/18 12:31 Aerobic Blood Culture - Final Blood Venous No Growth Day 5 Anaerobic Blood Culture - Final No Growth Day 5 08/27/18 12:40 Aerobic Blood Culture - Final Blood Venous No Growth Day 5 Anaerobic Blood Culture - Final No Growth Day 5 08/27/18 16:00 Gram Stain - Final Joint Fluid(Synovial) - Ankle Left Body Fluid Culture - Final No Growth Day 4 08/27/18 12:44 Gram Stain - Final Joint Fluid(Synovial) Body Fluid Culture - Final No Growth Day 4 Skin and Soft Tissue MRSA/MSSA (PCR - Final Mrsa Negative S.aureus Negative left LE splint is in good repair, dry and intact toes are pink and warm with good cap refill sensation intact distally Assessment: []s/p I&D distal tibia talus chronic osteomyelitis POD #4 S. aureus Plan: []PICC line today cefazolin 2g q 8 hrs Heparin/ Coumadin NWB LLE When stable medically and home abx set w PICC in place, OK for discharge from ortho standpoint. follow up with Dr. Franco next week.
[2018-09-03] MEDS: oxyCODONE SR TAB(*) 20 MG TAB.SR PO SCH ×2 (09:13→20:56)
[2018-09-03] MEDS: Heparin DRIP 25,000 UNITS(*) 25,000 UNITS/500 ML BAG IV SCH (13:23)
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
[2018-09-03] MEDS: Warfarin TAB(*) 10 MG PO SCH (17:49)
[2018-09-03] MEDS: Metoprolol Succinate XL TAB* 50 MG PO SCH (20:56)
[2018-09-03] MEDS: Atorvastatin* 10 MG TAB PO SCH (20:56)
[2018-09-03] MEDS: Clopidogrel TAB* 75 MG PO SCH (20:56)
[2018-09-04] MEDS: ceFAZolin* 2 GM* Q8H (Duplex) IVPB SCH ×2 (04:33→12:48)
[2018-09-04] MEDS: oxyCODONE/Acetamin 5/325 MG* TAB PO PRN ×2 (05:45→12:42)
[2018-09-04] MEDS: Heparin DRIP 25,000 UNITS(*) 25,000 UNITS/500 ML BAG IV SCH (06:41)
[2018-09-04 07:00] LABS: INR 1.14 (0.77-1.02)
[2018-09-04 07:06] LABS: EGFR Non-African American 114.4 (>60)
[2018-09-04] MEDS: oxyCODONE SR TAB(*) 20 MG TAB.SR PO SCH (09:29)
[2018-09-04 11:42] VITALS: BP 113/79
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
== END 2018-09-04 14:50 | disposition home or self-care (01) | DRG 313 ==
LOC: SSU 10:10
PROVIDERS: ADMIT Internal Medicine; ATTEND Internal Medicine
PROC: 0M9 Bursae and Ligaments, Drainage (ICD-10-PCS; 2018-08-27)
PROC: 0QBH0ZZ Excision of Left Tibia, Open Approach (ICD-10-PCS; principal; 2018-08-30 12:00)
PROC: 02HV33Z Insertion of Infusion Device into Superior Vena Cava, Percutaneous Approach (ICD-10-PCS; 2018-09-03)
DX: M86.662 Other chronic osteomyelitis, left tibia and fibula (principal); I25.10 Atherosclerotic heart disease of native coronary artery without angina pectoris; I10 Essential (primary) hypertension; F17.210 Nicotine dependence, cigarettes, uncomplicated; I44.7 Left bundle-branch block, unspecified; R79.1 Abnormal coagulation profile; M19.072 Primary osteoarthritis, left ankle and foot; B95.61 Methicillin susceptible Staphylococcus aureus infection as the cause of diseases classified elsewhere; I07.1 Rheumatic tricuspid insufficiency; I27.20 Pulmonary hypertension, unspecified; E78.5 Hyperlipidemia, unspecified; Z95.1 Presence of aortocoronary bypass graft; Z95.2 Presence of prosthetic heart valve; Z82.49 Family history of ischemic heart disease and other diseases of the circulatory system; Z72.89 Other problems related to lifestyle; Z81.1 Family history of alcohol abuse and dependence; Z95.0 Presence of cardiac pacemaker; Z79.01 Long term (current) use of anticoagulants; Z79.02 Long term (current) use of antithrombotics/antiplatelets
CPT/HCPCS: 36415; 71045; 78315; 80048; 80053; 82565; 84157; 84520; 85025; 85610; 85652; 85730; 86140; 86850; 86870; 86880; 86900; 86901; 87040; 87070; 87073; 87077; 87186; 87205; 87640; 87641; 88173; 88304; 88311; 89051; 93005; 93306; A9270-GY; A9503; C1751; G8978-GP-CI; G8979-GP-CI; G8980-GP-CI; J0690; J0780; J1170; J1644; J1885; J2250; J2270; J2405; J2704; J3010; J3490

== ENCOUNTER 2019-04-05 10:45 | Emergency (ER) | payer OTHER ==
--- OUTSIDE RECORDS SUMMARY | 2019-04-05 10:54 | XMS REPORT | Continuity of Care Document ---
:1960 External Reference #:[id number] Author Name Chepe Kaplan Care Team Providers Name Role Phone Evette Llamas MD Primary Care Physician Unavailable Payers Date Identification Numbers Payment Provider Subscriber Policy Number: [id number] Wilfrid Moran PayID: [id number] [address] [place] [address] Family History Date Family Member(s) Observation Comments Father Heart Disease Father paternal grandfather-MD Siblings brother(pepe) HTN,Heart brother (ariadna) double bipass. issues(quadrupal bipass),lyme in his sleep-had MD disease Sister(collin)-cancer. 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 ETOH Use Occasionally consumes alcohol Tobacco Use Start: Unknown Heavy tobacco smoker (more than 10 cigarettes/day) Recreational Drug Use Denies Drug Use Smoking Status Reviewed: 03/26/19 Heavy tobacco smoker (more than 10 cigarettes/day) Exercise Type/Frequency Does not exercise Allergies, Adverse Reactions, Alerts Active Allergies Reaction Severity Comments Date NKDA 03/05/2018 Dark Green Vegtables 03/05/2018 Medications Active Medications SIG Qnty Indications Ordering Provider Date Spironolactone 1 by mouth every Unknown 25mg Tablets day at bedtme Simvastatin 1 by mouth every Unknown 20mg Tablets day Meloxicam 1 by mouth every Unknown 15mg Tablets day at bedtime Metoprolol Tartrate 1 by mouth daily Unknown 50mg at bedtime Tablets Clopidogrel Bisulfate 1 by mouth every Unknown 75mg day at bedtime Tablets Warfarin Sodium 1 tab by mouth Unknown 10mg Tablets at bedtime. History Medications Augusta 1 by mouth every 30tabs Bhavin Franco, 11/15/2018 - 5-325mg six hours as M.DNataliya 02/11/2019 Tablets needed for pain Cephalexin 1 by mouth three 90tabs M86.672 Evette Monsivais 10/10/2018 - 500mg times a day Paolo Wen 01/19/2019 Tablets Oxycodone HCL 1 tabs by mouth 40tabs Bhavin Franco, 09/17/2018 - 5mg every 6 hours as M.DNataliya 11/14/2018 Tablets needed Lidocaine 1 patch transderm Unknown - 5% everyday for 12 01/18/2019 Patches hrs to right shoulder/humerous Lamisil 1 tab by mouth Unknown - 250mg twice daily 01/18/2019 Tablet Zohydro ER 1 tab by mouth Unknown - every 4 hrs as 01/21/2019 needed Cefazolin Sodium 2gm iv every 8 Unknown - hours x 42 days 10/29/2018 1gm Solution Rec through [facility] Medications Administered in Office Medication SIG Qnty Indications Ordering Provider Date Celestone 3 mg and 3mg Vincent Childers MD 03/05/2018 Injection Vital Signs Date Vital Result Comment 03/26/2019 8:55am Height 67 inches 5'7" Weight 175.00 lb Heart Rate 90 /min BP Systolic Sitting 110 mmHg BP Diastolic Sitting 64 mmHg Respiratory Rate 18 /min Pain Level 3 BMI (Body Mass Index) 27.4 kg/m2 03/05/2019 8:50am Height 67 inches 5'7" Weight 176.00 lb BP Systolic Sitting 130 mmHg BP Diastolic Sitting 76 mmHg Respiratory Rate 16 /min Pain Level 3 BMI (Body Mass Index) 27.6 kg/m2 02/12/2019 1:03pm Height 67 inches 5'7" Heart Rate 72 /min BP Systolic Sitting 104 mmHg BP Diastolic Sitting 76 mmHg Respiratory Rate 20 /min Pain Level 3 O2 % BldC Oximetry 96 % 01/22/2019 11:39am Height 67 inches 5'7" Weight 176.00 lb BP Systolic Sitting 150 mmHg BP Diastolic Sitting 78 mmHg Respiratory Rate 18 /min Pain Level 7 BMI (Body Mass Index) 27.6 kg/m2 01/16/2019 9:13am Height 67 inches 5'7" Heart Rate 60 /min BP Systolic 130 mmHg BP Diastolic 82 mmHg Respiratory Rate 18 /min Body Temperature 97.9 F Pain Level 6 12/12/2018 8:26am Height 67 inches 5'7" Heart Rate 96 /min BP Systolic 124 mmHg BP Diastolic 82 mmHg Body Temperature 97.9 F Pain Level 6 11/14/2018 9:14am Height 67 inches 5'7" Weight 171.00 lb BP Systolic 142 mmHg BP Diastolic 86 mmHg Body Temperature 97.8 F Pain Level 6 BMI (Body Mass Index) 26.8 kg/m2 11/12/2018 8:23am Height 67 inches 5'7" Weight 171.50 lb Heart Rate 67 /min BP Systolic Sitting 138 mmHg BP Diastolic Sitting 80 mmHg Respiratory Rate 17 /min Body Temperature 97.5 F BMI (Body Mass Index) 26.9 kg/m2 10/17/2018 9:33am Height 67 inches 5'7" Weight 166.00 lb BP Systolic 140 mmHg BP Diastolic 80 mmHg Respiratory Rate 17 /min Body Temperature 97.0 F Pain Level 3 BMI (Body Mass Index) 26.0 kg/m2 10/10/2018 1:21pm Height 67 inches 5'7" Weight 166.25 lb Heart Rate 60 /min BP Systolic Sitting 110 mmHg BP Diastolic Sitting 66 mmHg Respiratory Rate 14 /min Body Temperature 98.3 F BMI (Body Mass Index) 26.0 kg/m2 10/02/2018 8:05am Height 67 inches 5'7" Heart Rate 80 /min BP Systolic 120 mmHg BP Diastolic 68 mmHg Respiratory Rate 18 /min Body Temperature 97.0 F Pain Level 4 09/17/2018 10:25am Height 67 inches 5'7" Weight 164.00 lb Heart Rate 72 /min BP Systolic Sitting 120 mmHg BP Diastolic Sitting 78 mmHg Respiratory Rate 14 /min Body Temperature 97.8 F BMI (Body Mass Index) 25.7 kg/m2 09/17/2018 8:56am Height 67 inches 5'7" Heart Rate 64 /min BP Systolic 124 mmHg BP Diastolic 72 mmHg Body Temperature 98.2 F Pain Level 3 08/27/2018 9:20am Height 67 inches 5'7" Weight 160.00 lb Heart Rate 84 /min BP Systolic Sitting 110 mmHg BP Diastolic Sitting 72 mmHg Respiratory Rate 14 /min Body Temperature 98.8 F BMI (Body Mass Index) 25.1 kg/m2 08/19/2018 9:43am Height 67 inches 5'7" Weight 165.00 lb Heart Rate 68 /min Respiratory Rate 16 /min Body Temperature 96.9 F Pain Level 10 BMI (Body Mass Index) 25.8 kg/m2 03/05/2018 3:58pm Height 67 inches 5'7" Weight 162.00 lb Heart Rate 80 /min BP Systolic 118 mmHg BP Diastolic 86 mmHg Respiratory Rate 12 /min no respiratory difficulties Pain Level 8 BMI (Body Mass Index) 25.4 kg/m2 Results Test Date Facility Test Result H/L Range Note Inr/Protime 12/30/2018 [facility] Inr 1.74 High 0.77-1.[address] [place] [address] [phone] Laboratory test 12/30/2018 [facility] Partial 40.4 seconds High 26.0-36.[address] [place] [address] PTT [phone] Basic Metabolic 12/30/2018 [facility] Sodium 136 mmol/L N 135- [address] [place] [address] [phone] Potassium 4.3 mmol/L N 3.5-5.0 Chloride 101 mmol/L N 101-111 Co2 Carbon Dioxide 28 mmol/L N 22-32 Anion Gap 7 mmol/L N 2-11 Glucose 91 mg/dL N 70-100 Blood Urea Nitrogen 5 mg/dL Low 6-24 Creatinine 0.78 mg/dL N 0.67-1.17 BUN/Creatinine Ratio 6.4 Low 8-20 Calcium 9.9 mg/dL N 8.6-10.3 Egfr Non- 102.6 >60 Egfr 124.1 >60 1 Laboratory test 12/30/2018 [facility] C Reactive < 1.00 N < 8.01 [facility] Protein mg/[place] [address] [phone] Inr/Protime 11/25/2018 [facility] Inr 3.20 High 0.77-1.[address] [place] [address] [phone] CBC Auto Diff 11/25/2018 [facility] White Blood 7.0 N 3.5- 10.[address] Count 10^3/[place] [address] [phone] Red Blood Count 4.69 10^6/uL N 4.00-5.40 Hemoglobin 14.7 g/dL N 14.0-18.0 Hematocrit 44 % N 42-52 Mean Corpuscular Volume 93 fL N 80-94 Mean Corpuscular Hemoglobin 31 pg N 27-31 Mean Corpuscular HGB Conc 34 g/dL N 31-36 Red Cell Distribution Width 17 % High 10.5-15 Platelet Count 231 10^3/uL N 150-450 Mean Platelet Volume 8.3 fL N 7.4-10.4 Abs Neutrophils 3.9 10^3/uL N 1.5-7.7 Abs Lymphocytes 1.5 10^3/uL N 1.0-4.8 Abs Monocytes 1.0 10^3/uL High 0-0.8 Abs Eosinophils 0.4 10^3/uL N 0-0.6 Abs Basophils 0.1 10^3/uL N 0-0.2 Abs Nucleated RBC 0 10^3/uL Granulocyte % 56.0 % Lymphocyte % 21.4 % Monocyte % 14.9 % Eosinophil % 6.3 % Basophil % 1.4 % Nucleated Red Blood Cells % 0.2 Comp Metabolic Panel 11/25/2018 [facility] Sodium 136 mmol/L N 135-[address] [place] [address] [phone] Potassium 3.9 mmol/L N 3.5-5.0 Chloride 102 mmol/L N 101-111 Co2 Carbon Dioxide 27 mmol/L N 22-32 Anion Gap 7 mmol/L N 2-11 Glucose 81 mg/dL N 70-100 Blood Urea Nitrogen 9 mg/dL N 6-24 Creatinine 0.79 mg/dL N 0.67-1.17 BUN/Creatinine Ratio 11.4 N 8-20 Calcium 10.1 mg/dL N 8.6-10.3 Total Protein 8.2 g/dL N 6.4-8.9 Albumin 5.0 g/dL N 3.2-5.2 Globulin 3.2 g/dL N 2-4 Albumin/Globulin Ratio 1.6 N 1-3 Total Bilirubin 0.50 mg/dL N 0.2-1.0 Alkaline Phosphatase 37 U/L N 34-104 Alt 40 U/L N 7-52 Ast 55 U/L High 13-39 Egfr Non- 101.1 >60 Egfr 122.3 >60 3 Laboratory test 11/25/2018 [facility] C Reactive < 1.00 N < 8.01 [address] Protein mg/L [place], [place] [id number] [phone] Comp Metabolic 10/25/2018 [facility] Sodium 136 mmol/L N 135- [address] [place] [address] [phone] Potassium 4.7 mmol/L N 3.5-5.0 Chloride 103 mmol/L N 101-111 Co2 Carbon Dioxide 28 mmol/L N 22-32 Anion Gap 5 mmol/L N 2-11 Glucose 73 mg/dL N 70-100 Blood Urea Nitrogen 9 mg/dL N 6-24 Creatinine 0.81 mg/dL N 0.67-1.17 BUN/Creatinine Ratio 11.1 N 8-20 Calcium 9.9 mg/dL N 8.6-10.3 Total Protein 7.3 g/dL N 6.4-8.9 Albumin 4.1 g/dL N 3.2-5.2 Globulin 3.2 g/dL N 2-4 Albumin/Globulin Ratio 1.3 N 1-3 Total Bilirubin 0.50 mg/dL N 0.2-1.0 Alkaline Phosphatase 36 U/L N 34-104 Alt 6 U/L Low 7-52 Ast 31 U/L N 13-39 Egfr Non- 98.2 >60 Egfr 118.8 >60 5 Laboratory test 10/25/2018 [facility] C Reactive < 1.00 N < 8.[address] Protein mg/L [place], [place] [id number] [phone] Inr/Protime 10/25/2018 [facility] Inr 1.85 High 0.77-1.[address] [place] [address] [phone] CBC Auto Diff 10/25/2018 [facility] White Blood 6.5 N 3.5- 10.[address] Count 10^3/[place] [address] [phone] Red Blood Count 4.24 10^6/uL N 4.00-5.40 Hemoglobin 13.5 g/dL Low 14.0-18.0 Hematocrit 40 % Low 42-52 Mean Corpuscular Volume 94 fL N 80-94 Mean Corpuscular Hemoglobin 32 pg High 27-31 Mean Corpuscular HGB Conc 34 g/dL N 31-36 Red Cell Distribution Width 16 % High 10.5-15 Platelet Count 216 10^3/uL N 150-450 Mean Platelet Volume 8.6 fL N 7.4-10.4 Abs Neutrophils 3.2 10^3/uL N 1.5-7.7 Abs Lymphocytes 1.8 10^3/uL N 1.0-4.8 Abs Monocytes 1.0 10^3/uL High 0-0.8 Abs Eosinophils 0.4 10^3/uL N 0-0.6 Abs Basophils 0.1 10^3/uL N 0-0.2 Abs Nucleated RBC 0 10^3/uL Granulocyte % 48.8 % Lymphocyte % 27.9 % Monocyte % 15.7 % Eosinophil % 6.2 % Basophil % 1.4 % Nucleated Red Blood Cells % 0.1 Inr/Protime 10/19/2018 [facility] Inr 3.59 High 0.77-1.02 [address] [place] [address] [phone] Comp Metabolic 10/19/2018 [facility] Sodium 133 mmol/L Low 135 -145 Panel [address] [place] [address] [phone] Potassium 4.2 mmol/L N 3.5-5.0 Chloride 103 mmol/L N 101-111 Co2 Carbon Dioxide 26 mmol/L N 22-32 Anion Gap 4 mmol/L N 2-11 Glucose 130 mg/dL High 70-100 Blood Urea Nitrogen 7 mg/dL N 6-24 Creatinine 0.79 mg/dL N 0.67-1.17 BUN/Creatinine Ratio 8.9 N 8-20 Calcium 9.5 mg/dL N 8.6-10.3 Total Protein 7.0 g/dL N 6.4-8.9 Albumin 4.0 g/dL N 3.2-5.2 Globulin 3.0 g/dL N 2-4 Albumin/Globulin Ratio 1.3 N 1-3 Total Bilirubin 0.30 mg/dL N 0.2-1.0 Alkaline Phosphatase 39 U/L N 34-104 Alt 6 U/L Low 7-52 Ast 28 U/L N 13-39 Egfr Non- 101.1 >60 Egfr 122.3 >60 6 Laboratory test 10/19/2018 [facility] C Reactive < 1.00 N < 8.[address] Protein mg/[place] [address] [phone] CBC Auto Diff 10/19/2018 [facility] White Blood 5.6 N 3.5- 10.[address] Count 10^3/[place] [address] [phone] Red Blood Count 4.07 10^6/uL N 4.00-5.40 Hemoglobin 13.1 g/dL Low 14.0-18.0 Hematocrit 39 % Low 42-52 Mean Corpuscular Volume 96 fL High 80-94 Mean Corpuscular Hemoglobin 32 pg High 27-31 Mean Corpuscular HGB Conc 34 g/dL N 31-36 Red Cell Distribution Width 17 % High 10.5-15 Platelet Count 209 10^3/uL N 150-450 Mean Platelet Volume 8.9 fL N 7.4-10.4 Abs Neutrophils 2.8 10^3/uL N 1.5-7.7 Abs Lymphocytes 1.7 10^3/uL N 1.0-4.8 Abs Monocytes 0.8 10^3/uL N 0-0.8 Abs Eosinophils 0.3 10^3/uL N 0-0.6 Abs Basophils 0.1 10^3/uL N 0-0.2 Abs Nucleated RBC 0 10^3/uL Granulocyte % 48.9 % Lymphocyte % 30.2 % Monocyte % 13.3 % Eosinophil % 6.1 % Basophil % 1.5 % Nucleated Red Blood Cells % 0.1 Inr/Protime 10/11/2018 [facility] Inr 2.47 High 0.77-1.[address] [place] [address] [phone] Comp Metabolic 10/11/2018 [facility] Sodium 136 mmol/L N 135- [address] [place] [address] [phone] Potassium 4.3 mmol/L N 3.5-5.0 Chloride 104 mmol/L N 101-111 Co2 Carbon Dioxide 27 mmol/L N 22-32 Anion Gap 5 mmol/L N 2-11 Glucose 108 mg/dL High 70-100 Blood Urea Nitrogen 9 mg/dL N 6-24 Creatinine 0.72 mg/dL N 0.67-1.17 BUN/Creatinine Ratio 12.5 N 8-20 Calcium 9.5 mg/dL N 8.6-10.3 Total Protein 7.0 g/dL N 6.4-8.9 Albumin 4.3 g/dL N 3.2-5.2 Globulin 2.7 g/dL N 2-4 Albumin/Globulin Ratio 1.6 N 1-3 Total Bilirubin 0.50 mg/dL N 0.2-1.0 Alkaline Phosphatase 38 U/L N 34-104 Alt 8 U/L N 7-52 Ast 29 U/L N 13-39 Egfr Non- 112.5 >60 Egfr 136.2 >60 7 Laboratory test 10/11/2018 [facility] C Reactive < 1.00 N < 8.[address] Protein mg/[place] [address] [phone] CBC Auto Diff 10/11/2018 [facility] White Blood 6.6 N 3.5- 10.[address] Count 10^3/[place] [address] [phone] Red Blood Count 4.05 10^6/uL N 4.00-5.40 Hemoglobin 12.9 g/dL Low 14.0-18.0 Hematocrit 38 % Low 42-52 Mean Corpuscular Volume 95 fL High 80-94 Mean Corpuscular Hemoglobin 32 pg High 27-31 Mean Corpuscular HGB Conc 34 g/dL N 31-36 Red Cell Distribution Width 16 % High 10.5-15 Platelet Count 254 10^3/uL N 150-450 Mean Platelet Volume 8.3 fL N 7.4-10.4 Abs Neutrophils 3.7 10^3/uL N 1.5-7.7 Abs Lymphocytes 1.5 10^3/uL N 1.0-4.8 Abs Monocytes 1.0 10^3/uL High 0-0.8 Abs Eosinophils 0.3 10^3/uL N 0-0.6 Abs Basophils 0.1 10^3/uL N 0-0.2 Abs Nucleated RBC 0 10^3/uL Granulocyte % 56.3 % Lymphocyte % 22.7 % Monocyte % 14.8 % Eosinophil % 5.0 % Basophil % 1.2 % Nucleated Red Blood Cells % 0 CBC Auto Diff 10/04/2018 [facility] White Blood 6.9 10^3/uL N 3.5-10.[address] [place] [address] [phone] Red Blood Count 3.97 10^6/uL Low 4.00-5.40 Hemoglobin 12.9 g/dL Low 14.0-18.0 Hematocrit 38 % Low 42-52 Mean Corpuscular Volume 96 fL High 80-94 Mean Corpuscular Hemoglobin 33 pg High 27-31 Mean Corpuscular HGB Conc 34 g/dL N 31-36 Red Cell Distribution Width 16 % High 10.5-15 Platelet Count 183 10^3/uL N 150-450 Mean Platelet Volume 8.3 fL N 7.4-10.4 Abs Neutrophils 3.4 10^3/uL N 1.5-7.7 Abs Lymphocytes 1.8 10^3/uL N 1.0-4.8 Abs Monocytes 1.1 10^3/uL High 0-0.8 Abs Eosinophils 0.5 10^3/uL N 0-0.6 Abs Basophils 0.1 10^3/uL N 0-0.2 Abs Nucleated RBC 0 10^3/uL Granulocyte % 49.4 % Lymphocyte % 26.4 % Monocyte % 15.6 % Eosinophil % 7.3 % Basophil % 1.3 % Nucleated Red Blood Cells % 0 Inr/Protime 10/04/2018 [facility] Inr 2.65 High 0.77-1.[address] [place] [address] [phone] Comp Metabolic 10/04/2018 [facility] Sodium 137 mmol/L N 135- 145 Panel [address] [place] [address] [phone] Potassium 4.0 mmol/L N 3.5-5.0 Chloride 105 mmol/L N 101-111 Co2 Carbon Dioxide 25 mmol/L N 22-32 Anion Gap 7 mmol/L N 2-11 Glucose 70 mg/dL N 70-100 Blood Urea Nitrogen 11 mg/dL N 6-24 Creatinine 0.75 mg/dL N 0.67-1.17 BUN/Creatinine Ratio 14.7 N 8-20 Calcium 9.4 mg/dL N 8.6-10.3 Total Protein 7.1 g/dL N 6.4-8.9 Albumin 4.2 g/dL N 3.2-5.2 Globulin 2.9 g/dL N 2-4 Albumin/Globulin Ratio 1.4 N 1-3 Total Bilirubin 0.30 mg/dL N 0.2-1.0 Alkaline Phosphatase 37 U/L N 34-104 Alt 7 U/L N 7-52 Ast 30 U/L N 13-39 Egfr Non- 107.3 >60 Egfr 129.9 >60 9 Laboratory test 10/04/2018 [facility] C Reactive < 1.00 N < 8.01 [address] Protein mg/[place] [address] [phone] CBC Auto Diff 09/26/2018 [facility] White Blood 9.2 N 3.5- 10.[address] Count 10^3/[place] [address] [phone] Red Blood Count 3.96 10^6/uL Low 4.00-5.40 Hemoglobin 13.0 g/dL Low 14.0-18.0 Hematocrit 38 % Low 42-52 Mean Corpuscular Volume 96 fL High 80-94 Mean Corpuscular Hemoglobin 33 pg High 27-31 Mean Corpuscular HGB Conc 34 g/dL N 31-36 Red Cell Distribution Width 16 % High 10.5-15 Platelet Count 230 10^3/uL N 150-450 Mean Platelet Volume 8.0 fL N 7.4-10.4 Abs Neutrophils 4.8 10^3/uL N 1.5-7.7 Abs Lymphocytes 2.6 10^3/uL N 1.0-4.8 Abs Monocytes 1.1 10^3/uL High 0-0.8 Abs Eosinophils 0.6 10^3/uL N 0-0.6 Abs Basophils 0.1 10^3/uL N 0-0.2 Abs Nucleated RBC 0 10^3/uL Granulocyte % 52.1 % Lymphocyte % 28.2 % Monocyte % 12.2 % Eosinophil % 6.1 % Basophil % 1.4 % Nucleated Red Blood Cells % 0.1 Inr/Protime 09/26/2018 [facility] Inr 2.51 High 0.77-1.[address] [place] [address] [phone] Comp Metabolic 09/26/2018 [facility] Sodium 136 mmol/L N 135- [address] [place] [address] [phone] Potassium 3.9 mmol/L N 3.5-5.0 Chloride 101 mmol/L N 101-111 Co2 Carbon Dioxide 27 mmol/L N 22-32 Anion Gap 8 mmol/L N 2-11 Glucose 68 mg/dL Low 70-100 Blood Urea Nitrogen 9 mg/dL N 6-24 Creatinine 0.71 mg/dL N 0.67-1.17 BUN/Creatinine Ratio 12.7 N 8-20 Calcium 9.4 mg/dL N 8.6-10.3 Total Protein 7.4 g/dL N 6.4-8.9 Albumin 4.3 g/dL N 3.2-5.2 Globulin 3.1 g/dL N 2-4 Albumin/Globulin Ratio 1.4 N 1-3 Total Bilirubin 0.30 mg/dL N 0.2-1.0 Alkaline Phosphatase 34 U/L N 34-104 Alt 6 U/L Low 7-52 Ast 28 U/L N 13-39 Egfr Non- 114.4 >60 Egfr 138.4 >60 12 Laboratory test 09/26/2018 [facility] C Reactive < 1.00 N < 8.[address] Protein mg/[place] [address] [phone] CBC Auto Diff 09/20/2018 [facility] White Blood 6.5 N 3.5- 10.[address] Count 10^3/[place] [address] [phone] Red Blood Count 3.93 10^6/uL Low 4.00-5.40 Hemoglobin 12.7 g/dL Low 14.0-18.0 Hematocrit 37 % Low 42-52 Mean Corpuscular Volume 95 fL High 80-94 Mean Corpuscular Hemoglobin 32 pg High 27-31 Mean Corpuscular HGB Conc 34 g/dL N 31-36 Red Cell Distribution Width 15 % N 10.5-15 Platelet Count 346 10^3/uL N 150-450 Mean Platelet Volume 8.0 fL N 7.4-10.4 Abs Neutrophils 3.7 10^3/uL N 1.5-7.7 Abs Lymphocytes 1.5 10^3/uL N 1.0-4.8 Abs Monocytes 1.0 10^3/uL High 0-0.8 Abs Eosinophils 0.3 10^3/uL N 0-0.6 Abs Basophils 0.1 10^3/uL N 0-0.2 Abs Nucleated RBC 0 10^3/uL Granulocyte % 56.3 % Lymphocyte % 22.9 % Monocyte % 14.9 % Eosinophil % 5.1 % Basophil % 0.8 % Nucleated Red Blood Cells % 0.1 Inr/Protime 09/20/2018 [facility] Inr 4.56 High 0.77-1.[address] [place] [address] [phone] Comp Metabolic 09/20/2018 [facility] Sodium 135 mmol/L N 135- [address] [place] [address] [phone] Potassium 4.8 mmol/L N 3.5-5.0 Chloride 103 mmol/L N 101-111 Co2 Carbon Dioxide 28 mmol/L N 22-32 Anion Gap 4 mmol/L N 2-11 Glucose 72 mg/dL N 70-100 Blood Urea Nitrogen 9 mg/dL N 6-24 Creatinine 0.67 mg/dL N 0.67-1.17 BUN/Creatinine Ratio 13.4 N 8-20 Calcium 9.7 mg/dL N 8.6-10.3 Total Protein 7.3 g/dL N 6.4-8.9 Albumin 4.1 g/dL N 3.2-5.2 Globulin 3.2 g/dL N 2-4 Albumin/Globulin Ratio 1.3 N 1-3 Total Bilirubin 0.30 mg/dL N 0.2-1.0 Alkaline Phosphatase 37 U/L N 34-104 Alt 5 U/L Low 7-52 Ast 27 U/L N 13-39 Egfr Non- 122.3 >60 Egfr 147.9 >60 15 Laboratory test 09/20/2018 [facility] C Reactive < 1.00 N < 8.01 [address] Protein mg/[place] [address] [phone] Laboratory test 09/13/2018 [facility] C Reactive < 1.00 N < 8.[address] Protein mg/L [place], [place] [id number] [phone] Comp Metabolic 09/13/2018 [facility] Sodium 134 Low 135-[address] mmol/[place] [address] [phone] Potassium 4.3 mmol/L N 3.5-5.0 Chloride 101 mmol/L N 101-111 Co2 Carbon Dioxide 25 mmol/L N 22-32 Anion Gap 8 mmol/L N 2-11 Glucose 93 mg/dL N 70-100 Blood Urea Nitrogen 9 mg/dL N 6-24 Creatinine 0.72 mg/dL N 0.67-1.17 BUN/Creatinine Ratio 12.5 N 8-20 Calcium 9.1 mg/dL N 8.6-10.3 Total Protein 6.5 g/dL N 6.4-8.9 Albumin 3.6 g/dL N 3.2-5.2 Globulin 2.9 g/dL N 2-4 Albumin/Globulin Ratio 1.2 N 1-3 Total Bilirubin 0.20 mg/dL N 0.2-1.0 Alkaline Phosphatase 42 U/L N 34-104 Alt 5 U/L Low 7-52 Ast 23 U/L N 13-39 Egfr Non- 112.5 >60 Egfr 136.2 >60 17 CBC Auto Diff 09/13/2018 [facility] White Blood 7.8 10^3/uL N 3.5-10.[address] [place] [address] [phone] Red Blood Count 3.53 10^6/uL Low 4.00-5.40 Hemoglobin 11.7 g/dL Low 14.0-18.0 Hematocrit 34 % Low 42-52 Mean Corpuscular Volume 97 fL High 80-94 Mean Corpuscular Hemoglobin 33 pg High 27-31 Mean Corpuscular HGB Conc 34 g/dL N 31-36 Red Cell Distribution Width 15 % N 10.5-15 Platelet Count 500 10^3/uL High 150-450 Mean Platelet Volume 7.4 fL N 7.4-10.4 Abs Neutrophils 4.3 10^3/uL N 1.5-7.7 Abs Lymphocytes 2.0 10^3/uL N 1.0-4.8 Abs Monocytes 0.9 10^3/uL High 0-0.8 Abs Eosinophils 0.5 10^3/uL N 0-0.6 Abs Basophils 0.1 10^3/uL N 0-0.2 Abs Nucleated RBC 0 10^3/uL Granulocyte % 54.9 % Lymphocyte % 25.3 % Monocyte % 12.0 % Eosinophil % 6.4 % Basophil % 1.4 % Nucleated Red Blood Cells % 0 Inr/Protime 09/13/2018 [facility] Inr 3.63 High 0.77-1.[address] [place] [address] [phone] CBC Auto Diff 08/21/2018 [facility] White Blood 8.6 N 3.5- 10.[address] Count 10^3/[place] [address] [phone] Red Blood Count 4.03 10^6/uL N 4.00-5.40 Hemoglobin 13.7 g/dL Low 14.0-18.0 Hematocrit 40 % Low 42-52 Mean Corpuscular Volume 98 fL High 80-94 Mean Corpuscular Hemoglobin 34 pg High 27-31 Mean Corpuscular HGB Conc 34 g/dL N 31-36 Red Cell Distribution Width 14 % N 10.5-15 Platelet Count 466 10^3/uL High 150-450 Mean Platelet Volume 7.6 fL N 7.4-10.4 Abs Neutrophils 6.2 10^3/uL N 1.5-7.7 Abs Lymphocytes 1.0 10^3/uL N 1.0-4.8 Abs Monocytes 1.0 10^3/uL High 0-0.8 Abs Eosinophils 0.2 10^3/uL N 0-0.6 Abs Basophils 0.1 10^3/uL N 0-0.2 Abs Nucleated RBC 0 10^3/uL Granulocyte % 72.8 % N 38-83 Lymphocyte % 11.4 % Low 25-47 Monocyte % 11.6 % High 0-7 Eosinophil % 2.8 % N 0-6 Basophil % 1.4 % N 0-2 Nucleated Red Blood Cells % 0.2 Laboratory test 08/21/2018 [facility] Prealbumin 17 mg/dL Low 18-[address] [place] [address] [phone] C Reactive Protein 8.51 mg/L High <8.01 Comp Metabolic Panel 08/21/2018 [facility] Sodium 136 mmol/L N 135-[address] [place] [address] [phone] Potassium 4.9 mmol/L N 3.5-5.0 Chloride 103 mmol/L N 101-111 Co2 Carbon Dioxide 25 mmol/L N 22-32 Anion Gap 8 mmol/L N 2-11 Glucose 80 mg/dL N 70-100 Blood Urea Nitrogen 8 mg/dL N 6-24 Creatinine 0.76 mg/dL N 0.67-1.17 BUN/Creatinine Ratio 10.5 N 8-20 Calcium 9.5 mg/dL N 8.6-10.3 Total Protein 7.3 g/dL N 6.4-8.9 Albumin 3.9 g/dL N 3.2-5.2 Globulin 3.4 g/dL N 2-4 Albumin/Globulin Ratio 1.1 N 1-3 Total Bilirubin 0.30 mg/dL N 0.2-1.0 Alkaline Phosphatase 48 U/L N 34-104 Alt 16 U/L N 7-52 Ast 29 U/L N 13-39 Egfr Non- 105.7 >60 Egfr 127.9 >60 18 1 Because ethnic data is not always readily [...] 15-29 5 Kidney failure <15 (or dialysis) 2 [id number] 3 Because ethnic data is not always readily [...] 15-29 5 Kidney failure <15 (or dialysis) 4 [id number] 5 Because ethnic data is not always readily [...] 15-29 5 Kidney failure <15 (or dialysis) 6 Because ethnic data is not always readily [...] 15-29 5 Kidney failure <15 (or dialysis) 7 Because ethnic data is not always readily [...] 15-29 5 Kidney failure <15 (or dialysis) 8 FAX RESULTS TO [id number] 9 Because ethnic data is not always readily [...] 15-29 5 Kidney failure <15 (or dialysis) 10 FAX RESULTS TO [id number] PLEASE SEND COPY TO [facility] FAX [phone] DR HUSSEIN FAX AND DR ALAS 12 Because ethnic data is not always readily [...] 15-29 5 Kidney failure <15 (or dialysis) 13 [id number] PLEASE SEND COPY TO [facility] FAX [phone] DR HUSSEIN FAX [phone] EVETTE WEN [phone] [id number] 15 Because ethnic data is not always readily [...] 15-29 5 Kidney failure <15 (or dialysis) 16 [id number] 17 Because ethnic data is not always readily [...] 15-29 5 Kidney failure <15 (or dialysis) 18 Because ethnic data is not always readily [...] 15-29 5 Kidney failure <15 (or dialysis) Procedures Date Code Description Status 03/05/2019 [id number] Rad Exam; Ankle Comp Completed 03/05/2019 [id number] Walking Cast Completed 01/22/2019 92624 Short Leg Cast Completed 01/06/2019 76187 Arthrodesis Ankle,open Completed 01/06/2019 89028 Arthrodesis Ankle,open Completed 10/02/2018 88145 Short Leg Cast Completed 09/17/2018 64593 Short Leg Cast Completed 08/30/2018 57610 Partial Excision Bone Tarsal/Metatarsal Completed 08/30/2018 73340 Partial Excision Bone Talus/Calcaneus Completed 08/30/2018 18037 Partial Excision Bone Talus/Calcaneus Completed 08/27/2018 12030 ECHO Transthorasic Realtime 2D W Doppler & Color Flow Hosp Completed 08/27/2018 71339 EKG, Interpretation Only Completed 08/27/2018 25034 Inject/Drain Joint/Bursa Intermediate W/O US Completed 07/28/2018 46684 EKG, Interpretation Only Completed 03/05/2018 35529 Inject/Drain Joint/Bursa Major W/O US Completed Encounters Type Date Location Provider Dx Diagnosis Office Visit 01/07/2019 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 Evette Monsivais M86.672 Other chronic 8:30a For Infectious Macqueen, M.D. osteomyelitis, left Diseases ankle and foot Z79.2 prison (current) use of antibiotics M25.572 Pain in left ankle and joints of left foot Office Visit 10/10/2018 [facility] Evette Monsivais M86.672 Other chronic 1:20p For Infectious [place]en, M.D. osteomyelitis, left Diseases ankle and foot Z79.2 prison (current) use of antibiotics Office Visit 09/17/2018 [facility] Evette Monsivais M86.672 Other chronic 10:10a For Infectious [place]en, M.D. 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 Brandie Jose, M86.672 Other chronic 9:54a Assoc,pc N.P. 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 Brandie Garcia, M86.672 Other chronic 9:53a Assoc,pc N.P. 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 Brandie Garcia, M86.672 Other chronic 9:53a Assoc,pc N.P. 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 ankle and foot M86.172 Other acute osteomyelitis, left ankle and foot Office Visit 08/29/2018 Orthopedic Benny M86.172 Other acute 10:37a Services Of Latisha Reed PA-C osteomyelitis, left ankle and foot Office Visit 08/29/2018 [facility] Jose, M86.672 Other chronic 9:51a Assoc,pc N.P. 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 Brandie Garica, M86.672 Other chronic Assoc,pc N.P. 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 Evette Monsivais M86.672 Other chronic 8:50a For Infectious Paolo Wen osteomyelitis, left Diseases ankle and foot B95.61 Methicillin suscep staph infct causing dis classd elswhr M25.572 Pain in left ankle and joints of left foot Office Visit 08/21/2018 Wound Care Fco Hayes L97.328 Non-pressure 8:00a Center AT [facility] MD Mark chronic ulcer of left ankle with oth severity Office Visit 08/19/2018 Orthopedic Kalyan Forman M25.572 Pain in left 9:30a Services Of ankle and joints C.M.A. 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 MD Yanet, chronic ulcer of FACS left ankle with oth severity Office Visit 03/05/2018 3:15p Orthopedic Vincent Claire S43.421A Sprain of right Services Of Mauricio Childers MD rotator cuff AT [facility], initial encounter Plan of Treatment 03/26/2019 - hBavin Franco M.D.M19.172 Post-traumatic osteoarthritis, left ankle and footFollow up:10-14 days postop
[2019-04-05 11:09] VITALS: BP 122/81
--- NOTE | 2019-04-05 11:29 | UC ---
General HPI - HPI Summary HPI Summary: SWELLING TO L CHEEK SINCE YESTERDAY AT 3:30PM. PT DENIES HX INJURY AND OFFERS HE HAS NO TEETH. HE DENIES FEVER. UPON ENTERING HIS ROOM, I IMMEDIATELY NOTE HE HAS MANY BRUISES AND HAS SCANT OOZING FROM SOME SUPERFICIAL SCALP ABRASIONS. PT IS ON WARFARIN FOR YEARS AT 10MG DAILY. HE TAKES IT FOR A MECHANICAL VALVE. HE NOTES IT WAS RECENTLY INCREASED TO 12 ABOUT 1 WEEK AGO AND THAT THE BRUISING AND BLEEDING BEGAN AFTER THAT. PT TAKES HIS WARFARIN EACH NIGHT, HASN'T TAKEN IT TODAY. - History of Current Complaint Chief Complaint: UCGeneralIllness Stated Complaint: FACIAL SWELLING Time Seen by Provider: 04/05/19 11:12 Hx Obtained From: Patient Pain Intensity: 0 - Allergy/Home Medications Allergies/Adverse Reactions: Allergies Allergy/AdvReac Type Severity Reaction Status Date / Time Dark green vegetables Allergy Swelling Uncoded 04/05/19 11:03 Of Face,Lips,& Throat PMH/Surg Hx/FS Hx/Imm Hx - Additional Past Medical History Additional PMH: OSTEOMYELITIS Endocrine History: Dyslipidemia Cardiovascular History: Cardiac Disease, Hypertension, Atrial Fibrillation, Other - CARDIOMYOPATHY, MECHANICAL HEART VALVE Other History Of: Anticoagulant Therapy - Surgical History Surgical History: Yes Surgery Procedure, Year, and Place: L ankle - Family History Known Family History: Positive: Cardiac Disease - Social History Alcohol Use: Occasionally Alcohol Amount: 2 PER WEEK Substance Use Type: Marijuana Substance Use Comment - Amount & Last Used: 08/08/18 Smoking Status (MU): Heavy Every Day Tobacco Smoker Type: Cigarettes Amount Used/How Often: 1 pack per day Length of Time of Smoking/Using Tobacco: 20 yrs old Have You Smoked in the Last Year: Yes Household Exposure Type: Cigarettes - Immunization History Most Recent Influenza Vaccination: never Most Recent Tetanus Shot: not UTD Most Recent Pneumonia Vaccination: never Vaccination Up to Date: Yes Review of Systems All Other Systems Reviewed And Are Negative: Yes Constitutional: Negative: Fever Skin: Positive: Bruising ENT: Negative: Epistaxis Genitourinary: Negative: Hematuria Physical Exam Triage Information Reviewed: Yes Appearance: Well-Appearing Vital Signs: Initial Vital Signs Temp 98.9 F 04/05/19 11:04 Pulse 89 04/05/19 11:04 Resp 15 04/05/19 11:04 BP 122/81 04/05/19 11:04 Pulse Ox 97 04/05/19 11:04 Vital Signs Reviewed: Yes Eyes: Positive: Conjunctiva Clear ENT: Positive: Pharynx normal, TMs normal, Other - L cheek with mild to moderate swelling on outside and corresponding hematoma to that inner cheek. No parotid tenderness or swelling.. Negative: Nasal congestion, Nasal drainage Neck: Positive: Supple Respiratory: Positive: Lungs clear, Normal breath sounds Cardiovascular: Positive: RRR Abdomen Description: Positive: Nontender Musculoskeletal: Positive: ROM Intact, Other: - Walking boot in place on LLE Neurological: Positive: Alert Psychological: Positive: Age Appropriate Behavior Skin Exam: Normal, Other - Abrasions on top of scalp with scant oozing, also oozing from abrasions to BUE's and RLE. pt also has scattered bruises to his extremities. Course/Dx - Course Course Of Treatment: [facility] CALL[facility]. REPORT GIVEN TO ARELY BARTON NP. I ADVISED PT ON WARFARIN, RECENT INCREASE FROM 10 TO 12 AND NOW OOZING FROM ABRASIONS, BRUISING AND HAS A SPONTANEOUS HEMATOMA INSIDE L CHEEK - Differential Dx - Multi-Symptom Differential Diagnoses: Other - pt is having some mild ongoing bleeding, easy bruising and a spontaneus hematoma L cheek. he is on warfarin with recent change from 10mg to 12 mg thus transfer to ER advised for urgent lab work. pt agrees to go. - Diagnoses Provider Diagnosis: Bruising, Hematoma Discharge - Sign-Out/Discharge Documenting (check all that apply): Patient Departure All imaging exams completed and their final reports reviewed: No Studies - Discharge Plan Condition: Stable Disposition: HOME Referrals: Juancarlos Granger MD [Primary Care Provider] - Additional Instructions: LEAVE HERE AND GO TO THE ER DISCUSSED - Billing Disposition and Condition Condition: STABLE Disposition: Home
== END 2019-04-05 11:41 | disposition home health service (06) ==
LOC: UCCORT 10:45
DX: S00.532A Contusion of oral cavity, initial encounter (principal); S80.12XA Contusion of left lower leg, initial encounter; S80.11XA Contusion of right lower leg, initial encounter; S40.022A Contusion of left upper arm, initial encounter; S40.021A Contusion of right upper arm, initial encounter; Z79.01 Long term (current) use of anticoagulants; Z95.2 Presence of prosthetic heart valve; F17.210 Nicotine dependence, cigarettes, uncomplicated
CPT/HCPCS: 99212; G0463

== ENCOUNTER → 2019-04-14 08:08 | Day surgery (SDC) | payer OTHER ==
[~2019-04-14 08:08] MED LIST: Buffered Lidocaine 1% SYRIN* 1 ML/SYRINGE INTRADERM ONE; Bupivacaine 0.5%* 50 ML VIAL ONE; Lactated Ringers 1000 ML Bag* 1,000 ML IV SCH; Lidocaine 1% INJ* 10 MG/ML 30 ML SDV ONE; Lidocaine 2% PF * 5 ML VIAL ONE; Midazolam* 1 MG/ML 2 ML VIAL (2 MG) ONE; Propofol* 10 MG/ML 20 ML BTL ONE; ceFAZolin 2 GM in NS PREMIX(*) 2 GM/100 ML BAG IVPB ONE; fentaNYL* 50 MCG/ML 2 ML VIAL (100 MCG VIAL) ONE
[2019-04-14 12:10] VITALS: BP 121/78
--- NOTE | 2019-04-17 08:42 | OP ---
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 OPERATIVE PROCEDURE: Removal of proximal locking screws, left intramedullary nail. DESCRIPTION OF PROCEDURE: The patient was taken to the operating room where we were able to palpate the head of one of the intramedullary screws at the medial distal calf. A 1 cm incision was used to identify the head of the screw which was then removed with appropriately star screwdriver. Just distal to this, e were able to locate the second screw through a 1 cm stab wound. This was removed also. We irrigated both wounds and closed with some interrupted nylon sutures and a compression dressing was applied. [id number]/CPS #: [id number] MTDJanes
== END | disposition home or self-care (01) ==
LOC: OR 08:08
PROVIDERS: ATTEND Orthopaedic Surgery
DX: Z47.2 Encounter for removal of internal fixation device (principal); M19.172 Post-traumatic osteoarthritis, left ankle and foot; I42.9 Cardiomyopathy, unspecified; Z95.2 Presence of prosthetic heart valve; Z79.01 Long term (current) use of anticoagulants; Z72.0 Tobacco use; Z95.810 Presence of automatic (implantable) cardiac defibrillator
CPT/HCPCS: 88300; J0690; J2250; J2704; J3010; J3490

== ENCOUNTER 2019-09-20 11:24 | Emergency (ER) | payer OTHER ==
--- OUTSIDE RECORDS SUMMARY | 2019-09-20 11:46 | XMS REPORT | Continuity of Care Document ---
:1960 External Reference #:[id number] Author Name Bhavin Franco M.D. 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 Molasses Tito Llamas MD - Family Medicine Care Team Information Evaporator Operator Molasses [phone] Problems Description No Information Available Social History Type Date Description Comments Sex Unknown ETOH Use Occasionally consumes alcohol Tobacco Use Start: Unknown Heavy tobacco smoker (more than 10 cigarettes/day) Recreational Drug Use Denies Drug Use Smoking Status Reviewed: 07/23/19 Heavy tobacco smoker (more than 10 cigarettes/day) Exercise Type/Frequency Does not exercise Allergies, Adverse Reactions, Alerts Active Allergies Reaction Severity Comments Date NKDA 03/05/2018 Dark Green Vegtables 03/05/2018 Medications Active Medications SIG Qnty Indications Ordering Date Provider Tramadol HCL 1 tab at night 5tabs Kalyan Forman, 05/16/2019 50mg Tablets before bed for MD pain. Oxycodone HCL 1 tabs by mouth 10tabs Bhavin Franco, 04/14/2019 5mg Tablets every 6 hours as M.D. needed Spironolactone 1 by mouth every Unknown 25mg Tablets day at bedtme Simvastatin 1 by mouth every Unknown 20mg Tablets day Meloxicam 1 by mouth every Unknown 15mg Tablets day at bedtime Metoprolol Tartrate 1 by mouth daily Unknown 50mg at bedtime Tablets Clopidogrel Bisulfate 1 by mouth every Unknown 75mg day at bedtime Tablets Warfarin Sodium 1 tab by mouth Unknown 10mg at bedtime. Tablets Medications Administered in Office Medication SIG Qnty Indications Ordering Provider Date Celestone 3 mg and 3mg Vincent Childers MD 03/05/2018 Injection Immunizations Description No Information Available Vital Signs Date Vital Result Comment 07/23/2019 1:05pm Height 67 inches 5'7" Weight 172.00 lb Heart Rate 70 /min BP Systolic Sitting 119 mmHg BP Diastolic Sitting 66 mmHg Respiratory Rate 16 /min Pain Level 4 O2 % BldC Oximetry 97 % BMI (Body Mass Index) 26.9 kg/m2 05/16/2019 9:07am Height 67 inches 5'7" Weight 175.00 lb Respiratory Rate 16 /min Pain Level 10 BMI (Body Mass Index) 27.4 kg/m2 Results Test Date Facility Test Result H/L Range Note Laboratory test 04/14/2019 [facility] SEE RESULT [address] [address] [phone] 1 SEE RESULT BELOW Name: JENNIFER BROWNE : [address]: Bhavin Franco MD Acct: [id number] Unit: [id number] AGE: 58 Location: OR Re04/14/19 SEX: M [place] [facility] [place]C: [id number] RENATO: 04/14/19- [facility] DR: Bhavin Franco MD REQ: [id number] RECD: 04/14/19 STATUS: SOUT _ ORDERED: LEVEL 1 FINAL DIAGNOSIS Tibia, left, hardware removal: Foreign body (orthopedic hardware) (gross diagnosis) PRE-OPERATIVE DIAGNOSIS Left ankle removal of screws of tibia GROSS DESCRIPTION The specimen is received fresh labeled, Left Tibial Hardware, and consists of two old metallic threaded spline-headed screws measuring 3.2 x 0.5 cm and 3.6 x 0.5 cm. Per established hospital medical staff protocol, no tissue is submitted. Gross only. Signed by and Reported on: Anny Quinonez MD 04/16/19 1023 END OF REPORT DEPARTMENT OF PATHOLOGY, [address] [place] [address] Jass Hawley M.D. Director [facility] # [id number] Procedures Date Code Description Status 04/14/2019 69302 Removal Implant Deep Wire,Screw Nail,Bowen Or Plate Completed 03/05/2019 01654 Rad Exam; Ankle Comp Completed 01/22/2019 73818 Short Leg Cast Completed Medical Devices Description No Information Available Encounters Type Date Location Provider Dx Diagnosis Office Visit 07/23/2019 [facility] Bhavin Franco, M19.172 Post- traumatic 1:45p at [facility] osteoarthritis, left ankle and foot Assessments Date Code Description Provider 07/23/2019 M19.172 Post-traumatic osteoarthritis, left ankle Bhavin Franco M.D. and foot 05/16/2019 M19.172 Post-traumatic osteoarthritis, left ankle Kalyan Forman MD and foot 05/16/2019 T84.89xD Other specified complication of internal Kalyan Forman MD orthopedic prosthetic devices, implants and grafts, subsequent encounter 04/24/2019 M19.172 Post-traumatic osteoarthritis, left ankle Bhavin Franco M.D. and foot 04/14/2019 M19.172 Post-traumatic osteoarthritis, left ankle Bhavin Franco M.D. and foot 04/14/2019 T84.89xA [facility] comp of internal orthopedic prosth Bhavin Franco M.D. dev/grft, init 03/26/2019 M19.172 Post-traumatic osteoarthritis, left ankle Bhavin Franco M.D. and foot 03/05/2019 M19.172 Post-traumatic osteoarthritis, left ankle Bhavin Franco M.D. and foot 02/12/2019 M19.172 Post-traumatic osteoarthritis, left ankle Bhavin Franco M.D. and foot 01/22/2019 M19.172 Post-traumatic osteoarthritis, left ankle Bhavin Franco M.D. and foot Plan of Treatment Future Appointment(s):09/03/2019 9:15 am - Bhavin Franco M.D. at [facility] at [facility]27/16/2019 - Bhavin Franco M.D.M19.172 Post-traumatic osteoarthritis, left ankle and footNew Xrays:Ankle Left 3+VWS, Ordered: New Therapy:Rehab ReferralFollow up:6-7 weeks Functional Status Description No Information Available Mental Status Description No Information Available Referrals Description No Information Available
--- NOTE | 2019-09-20 11:59 | ED ---
Back Pain - HPI Summary HPI Summary: This patient is a 59 year old male presenting to [facility] with a chief complaint of lower back pain since he woke up this morning. He states he has had no recent trauma or back problems in the past. He states the pain radiates to the back of his left leg. He denies fever and dysuria. He states movement aggravates the pain. He rates his pain 10/10 in severity. He states he had left ankle surgery one year ago due to infection. Patient has no Hx of substance use. - History of Current Complaint Chief Complaint: EDBackInjuryPain Stated Complaint: BACK PAIN Time Seen by Provider: 09/20/19 11:53 Hx Obtained From: Patient Onset/Duration: Lasting Hours Onset/Duration: Started Hours Ago Timing: Constant Pain Intensity: 10 Pain Scale Used: 0-10 Numeric - Allergies/Home Medications Allergies/Adverse Reactions: Allergies Allergy/AdvReac Type Severity Reaction Status Date / Time Dark green vegetables Allergy Swelling Uncoded 09/20/19 12:19 Of Face,Lips,& Throat PMH/Surg Hx/FS Hx/Imm Hx Endocrine/Hematology History: Reports: Hx Anticoagulant Therapy Cardiovascular History: Reports: Hx Coronary Artery Disease - BYPASS, Hx Hypertension - PER EMR, Hx Pacemaker/ICD, Hx Valvular Heart Disease - 2003- VALVE [id number] AND MITRAL, Other Cardiovascular Problems/ Disorders - Bypass and implanted defibillator Respiratory History: Denies: Other Respiratory Problems/Disorders GI History: Denies: Other GI Disorders History: Denies: Hx Acute Renal Failure, Other Problems/Disorders Musculoskeletal History: Reports: Hx Arthritis, Other Musculoskeletal History - POST TRAUMATIC OSTREOARTHRITIS LEFT ANKLE Sensory History: Reports: Hx Contacts or Glasses Denies: Hx Hearing Aid Opthamlomology History: Reports: Hx Contacts or Glasses Neurological History: Reports: Other Neuro Impairments/Disorders - PINCHED NERVE LOWER BACK - Surgical History Surgery Procedure, Year, and Place: L ankle Hx Anesthesia Reactions: No Infectious Disease History: No Infectious Disease History: Denies: Traveled Outside the [place] in Last 30 Days - Family History Known Family History: Positive: Cardiac Disease - Social History Alcohol Use: Occasionally Alcohol Amount: 2 PER WEEK Hx Substance Use: Yes Substance Use Type: Reports: Marijuana Substance Use Comment - Amount & Last Used: 08/08/18 Hx Tobacco Use: Yes Smoking Status (MU): Heavy Every Day Tobacco Smoker Type: Cigarettes Amount Used/How Often: 1 pack per day Length of Time of Smoking/Using Tobacco: 20 yrs old Have You Smoked in the Last Year: Yes Review of Systems Negative: Fever Negative: dysuria Positive: Other - Back pain All Other Systems Reviewed And Are Negative: Yes Physical Exam - Summary Physical Exam Summary: VITAL SIGNS: Reviewed. GENERAL: Patient is a well-developed and nourished MALE who is lying comfortable in the stretcher. Patient is not in any acute respiratory distress. HEAD AND FACE: No signs of trauma. No ecchymosis, hematomas or skull depressions. No sinus tenderness. EYES: PERRLA, EOMI x 2, No injected conjunctiva, no nystagmus. EARS: Hearing grossly intact. Ear canals and tympanic membranes are within normal limits. MOUTH: Oropharynx within normal limits. NECK: Supple, trachea is midline, no adenopathy, no JVD, no carotid bruit, no c- spine tenderness, neck with full ROM. Paraspinal tenderness in the left lumbar spine. CHEST: Symmetric, no tenderness at palpation. LUNGS: Clear to auscultation bilaterally. No wheezing or crackles. CVS: Regular rate and rhythm, S1 and S2 present, no murmurs or gallops appreciated. ABDOMEN: Soft, non-tender. No signs of distention. No rebound, no guarding, and no masses palpated. Bowel sounds are normal. EXTREMITIES: FROM in all major joints, no edema, no cyanosis or clubbing. NEURO: Alert and oriented x 3. No acute neurological deficits. Speech is normal and follows commands. SKIN: Dry and warm. Triage Information Reviewed: Yes Vital Signs On Initial Exam: Initial Vitals Temp Pulse Resp BP Pulse Ox 97.4 F 82 16 146/74 100 09/20/19 11:25 09/20/19 11:25 09/20/19 11:25 09/20/19 11:25 09/20/19 11:25 Vital Signs Reviewed: Yes Procedures - Sedation Patient Received Moderate/Deep Sedation with Procedure: No Diagnostics - Vital Signs Vital Signs Temp Pulse Resp BP Pulse Ox 09/20/19 11:25 97.4 F 82 16 146/74 100 - Laboratory Result Diagrams: 09/20/19 12:39 09/20/19 12:38 Lab Statement: Any lab studies that have been ordered have been reviewed, and results considered in the medical decision making process. - CT Lumbar Spine CT Interpretation Completed By: Radiologist Summary of CT Findings: 1. Multilevel degenerative disc disease with what appears to be varying degrees of central cranal or neural foraminal stenosis from L2 to L5. If it'll influence clinical management, superior characterization can be me made with MRI of the lumbar spine. 2. Coarse calcification of the lower abdominal aorta extending into the common iliac arteries. ED Provider has reviewed this report. Re-Evaluation - Re-Evaluation First Eval Re-Evaluation Time: 15:38 Change: Improved Comment: Patient states he feels better, pain level reduced to 1/10 in severity and is ready to go home. Back Pain Course/Dx - Course Assessment/Plan: This patient is a 59 year old male presenting to [facility] with a chief complaint of lower back pain since he woke up this morning. He states he has had no recent trauma or back problems in the past. He states the pain radiates to the back of his left leg. He denies fever and dysuria. He states movement aggravates the pain. He rates his pain 10/10 in severity. He states he had left ankle surgery one year ago due to infection. Patient has no Hx of substance use. Blood work without a significant abnormality, except for slight anemia, lactic is 2.2, urinalysis is 3.7, lipase is 45. The patient doesnt have an increased levels account and the CRP is negative. L spine CT IMPRESSION : 1. Multilevel degenerative disc disease with what appears to be varying degrees of central canal or neural foraminal stenosis from L2 to L5. If it'll influence clinical management, superior characterization can be made with MRI of the lumbar spine. 2. Coarse calcification of the lower abdominal aorta extending into the common iliac arteries. Please correlate to signs and symptoms of arterial insufficiency. In the ED course the patient was given Zofran, morphine, Valium, dexamethasone and Norflex. After these medications the patients symptoms have significantly improved. At this point the patient is feeling better, the patient is ambulating with minimal pain. The patient does have any red flags and therefore I do not believe that the patient has any type of infection spine. Patient will be discharged home with follow-up with primary care physician. He was recommended to return to the emergency department. The pain increases, he returns, or any other symptom appears. Patient is hemodynamically stable alert and oriented 3. - Diagnoses Provider Diagnoses: Back pain Discharge ED - Sign-Out/Discharge Documenting (check all that apply): Patient Departure - Discharge - Discharge Plan Condition: Stable Disposition: HOME Prescriptions: Acetaminophen TAB* [Tylenol TAB*] 650 mg PO Q6H PRN #30 tab PRN Reason: Pain - Moderate Diazepam TAB(*) [Valium TAB(*)] 5 mg PO TID PRN #10 tab MDD 3 PRN Reason: Spasms - Muscle predniSONE TAB* [Deltasone 20 MG TAB*] 40 mg PO DAILY #10 tab Patient Education Materials: Back Pain (ED) Referrals: Juancarlos Granger MD [Primary Care Provider] - Additional Instructions: Return to ED with new or worsening symptoms. - Billing Disposition and Condition Condition: STABLE Disposition: Home - Attestation Statements Document Initiated by Kelsey: Yes Documenting Scribe: Bhavin Puentes Provider For Whom Kelsey is Documenting (Include Credential): Junior Reynoso MD Scribe Attestation: Bhavin Everett scribed for Junior Reynoso MD on 09/20/19 at 1836. Scribe Documentation Reviewed: Yes Provider Attestation: The documentation as recorded by the Bhavin layne accurately reflects the service I personally performed and the decisions made by , Junior Reynoso MD Status of Scribe Document: Viewed
[2019-09-20] MEDS ORDERED: Morphine 4 MG/ML VIAL (1 ml) 4 MG/ML VIAL IV ONE ×2 (12:14→12:50)
[2019-09-20] MEDS ORDERED: Ondansetron INJ* 2 MG/ML VIAL IV ONE (12:14)
[2019-09-20] MEDS ORDERED: Orphenadrine Citrate IV* 30 MG/ML 2 ML VIAL IV ONE (12:14)
[2019-09-20 12:48] LABS: ABS Basophils 0.1 10^3/ul (0-0.2); ABS Eosinophils 0.2 10^3/ul (0-0.6); ABS Lymphocytes 1.2 10^3/ul (1.0-4.8); ABS Neutrophils 4.1 10^3/ul (1.5-7.7); Eosinophil % 2.9 %; Hematocrit 38 % (42-52); Hemoglobin 12.8 g/dL (14.0-18.0); Lymphocyte % 18.2 %; Mean Corpuscular HGB Conc 34 g/dL (31-36); Mean Corpuscular Hemoglobin 32 pg (27-31); Mean Corpuscular Volume 95 fL (80-94); Mean Platelet Volume 8.4 fL (7.4-10.4); Platelet Count 228 10^3/uL (150-450); Red Blood Count 3.99 10^6 /uL (4.18-5.48); Red Cell Distribution Width 20 % (10-15); White Blood Count 6.5 10^3/uL (3.5-10.8)
[2019-09-20 13:06] LABS: Albumin 3.8 g/dL (3.2-5.2); Albumin/Globulin Ratio 1.2 (1-3); BUN/Creatinine Ratio 11.3 (8-20); C Reactive Protein 5.13 mg/L (<8.01); Calcium 9.4 mg/dL (8.6-10.3); EGFR African American 120.1 (>60); EGFR Non-African American 99.3 (>60); Globulin 3.2 g/dL (2-4); Potassium 4.3 mmol/L (3.5-5.0); Total Bilirubin 0.6 mg/dL (0.2-1.0); Uric Acid 3.7 mg/dL (4.4-7.6)
[2019-09-20 14:03] LABS: Erythrocyte Sed Rate 24 mm/Hr (0-19)
[2019-09-20] MEDS ORDERED: Diazepam TAB(*) 5 MG PO ONE (14:12)
[2019-09-20] MEDS ORDERED: Dexamethasone IV* 4 MG/ML 1 ML (4 MG) IV SLOW PU ONE (14:13)
[2019-09-20 15:52] VITALS: BP 119/75
== END 2019-09-20 15:50 | disposition home or self-care (01) ==
LOC: ED 11:24
DX: M54.5 Low back pain (principal); I25.10 Atherosclerotic heart disease of native coronary artery without angina pectoris; I10 Essential (primary) hypertension; Z95.810 Presence of automatic (implantable) cardiac defibrillator; Z95.2 Presence of prosthetic heart valve; Z95.1 Presence of aortocoronary bypass graft; F17.210 Nicotine dependence, cigarettes, uncomplicated
CPT/HCPCS: 36415; 72131; 80053; 83605; 84550; 85025; 85652; 86140; 96374; 96375; 96376; 99283; A9270-GY; J1100; J2270; J2360; J2405

== ENCOUNTER 2020-07-12 10:48 | Observation (INO) ==
[2020-07-12] MEDS ORDERED: Morphine 4 MG/ML VIAL (1 ml) IV ONE ×2 (11:21→12:50)
[2020-07-12 11:33] LABS: ABS Basophils 0.1 10^3/ul (0-0.2); ABS Eosinophils 0.1 10^3/ul (0-0.6); ABS Lymphocytes 1.3 10^3/ul (1.0-4.8); ABS Monocytes 1.2 10^3/ul (0-0.8); ABS Neutrophils 7.2 10^3/ul (1.5-7.7); Eosinophil % 1.2 %; Hematocrit 39 % (42-52); Lymphocyte % 13.4 %; Mean Corpuscular HGB Conc 34 g/dL (31-36); Mean Corpuscular Hemoglobin 32 pg (27-31); Mean Corpuscular Volume 94 fL (80-94); Mean Platelet Volume 8.9 fL (7.4-10.4); Platelet Count 184 10^3/uL (150-450); Red Blood Count 4.11 10^6 /uL (4.18-5.48); Red Cell Distribution Width 22 % (10-15); White Blood Count 10.1 10^3/uL (3.5-10.8)
[2020-07-12 11:53] LABS: Albumin 4.3 g/dL (3.2-5.2); Albumin/Globulin Ratio 1.3 (1-3); BUN/Creatinine Ratio 8.9 (8-20); Calcium 9.7 mg/dL (8.6-10.3); EGFR African American 121.5 (>60); EGFR Non-African American 100.4 (>60); Globulin 3.4 g/dL (2-4); Potassium 4.1 mmol/L (3.5-5.0); Total Bilirubin 0.8 mg/dL (0.2-1.0); Total Protein 7.7 g/dL (6.4-8.9)
[2020-07-12 12:14] LABS: INR 8.67 (0.82-1.09)
[2020-07-12] MEDS ORDERED: Phytonadione SUBCUT/IM Adult 10 MG/ML AMP (IM or SQ not preferred route) IM ONE (12:16)
[2020-07-12] MEDS ORDERED: Prothrombin Complex Conc. DOSE = Units Factor IX (nine) IV SLOW PU ONE ×2 (12:21)
[2020-07-12] MEDS ORDERED: NS 0.9% 50 ML 50 ML ONE (12:55)
[2020-07-12] MEDS ORDERED: Ondansetron 4 mg VIAL 2 MG/ML 2 ml VIAL IV PRN (17:38)
[2020-07-12 19:09] LABS: INR 1.08 (0.82-1.09)
[2020-07-13 01:00] LABS: Hematocrit 31 % (42-52); Hemoglobin 10.7 g/dL (14.0-18.0)
[2020-07-13 01:14] LABS: INR 1.08 (0.82-1.09)
[2020-07-13] MEDS ORDERED: Heparin DRIP 25,000 UNITS BAG 25,000 UNITS/500 ML BAG IV SCH (01:45)
[2020-07-13 02:20] LABS: Activated Partial Thrombo Time 33.9 seconds (26.0-38.0)
[2020-07-13 03:20] LABS: ABS Basophils 0.1 10^3/ul (0-0.2); ABS Eosinophils 0.2 10^3/ul (0-0.6); ABS Lymphocytes 0.8 10^3/ul (1.0-4.8); ABS Neutrophils 4.6 10^3/ul (1.5-7.7); Eosinophil % 3.7 %; Hematocrit 31 % (42-52); Hemoglobin 10.6 g/dL (14.0-18.0); Lymphocyte % 12.2 %; Mean Corpuscular HGB Conc 34 g/dL (31-36); Mean Corpuscular Hemoglobin 32 pg (27-31); Mean Corpuscular Volume 94 fL (80-94); Mean Platelet Volume 8.3 fL (7.4-10.4); Platelet Count 120 10^3/uL (150-450); Red Blood Count 3.31 10^6 /uL (4.18-5.48); Red Cell Distribution Width 22 % (10-15); White Blood Count 6.8 10^3/uL (3.5-10.8)
[2020-07-13 03:23] LABS: EGFR African American 154.9 (>60)
[2020-07-13 07:06] LABS: Hematocrit 31 % (42-52); Hemoglobin 10.7 g/dL (14.0-18.0); Mean Corpuscular HGB Conc 35 g/dL (31-36); Mean Corpuscular Hemoglobin 33 pg (27-31); Mean Corpuscular Volume 95 fL (80-94); Mean Platelet Volume 8.8 fL (7.4-10.4); Platelet Count 119 10^3/uL (150-450); Red Blood Count 3.27 10^6 /uL (4.18-5.48); Red Cell Distribution Width 22 % (10-15); White Blood Count 6.4 10^3/uL (3.5-10.8)
[2020-07-13 07:56] LABS: ABS Neutrophils 4.6 10^3/ul (1.5-7.7)
[2020-07-13 07:57] LABS: ABS Basophils 0.1 10^3/ul (0-0.2); ABS Eosinophils 0.4 10^3/ul (0-0.6)
[2020-07-13 15:10] VITALS: BP 117/80
== END 2020-07-13 16:00 | disposition home or self-care (01) ==
LOC: MED 10:48 → ED 10:48 → MED 19:40
PROVIDERS: ADMIT Nurse Practitioner Acute Care; ATTEND Internal Medicine